=== PATIENT | female | born 1935 | race Caucasian/White ===

== ENCOUNTER 2017-04-06 13:50 | Inpatient (IN) | payer MEDICARE, BC ==
[~2017-04-06] VITALS: Ht 157.5 cm; Wt 51.5 kg
[2017-04-06] MEDS ORDERED: SOD CHLORIDE 0.9% 1,000 ML IV STA ×2 (14:04→14:06)
[2017-04-06] MEDS ORDERED: ONDANSETRON 4 MG INJ IV STA (14:11)
[2017-04-06] MEDS ORDERED: ONDANSETRON 4 MG INJ ONE (14:12)
[2017-04-06 14:35] LABS: BASOPHILS % 0.4 % (0.0-2.0); EOSINOPHILS # 0.2 10^3/ul (0.0-0.5); EOSINOPHILS % 3.1 % (0.0-7.0); HEMATOCRIT 44.4 % (37.0-47.0); LYMPHOCYTES # 2.6 10^3/ul (0.8-2.9); LYMPHOCYTES % 53.2 % (15.0-51.0); MEAN CORPUSCULAR HEMOGLOBIN 31.3 pg (29.0-33.0); MEAN CORPUSCULAR HGB CONC 31.5 g/dl (32.0-37.0); MEAN CORPUSCULAR VOLUME 99.1 fl (82.0-101.0); MEAN PLATELET VOLUME 9.4 fl (7.4-10.4); MONOCYTE # 0.3 10^3/ul (0.3-0.9); MONOCYTES % 6.2 % (0.0-11.0); NEUTROPHIL # 1.8 10^3/ul (1.6-7.5); NEUTROPHILS % 36.9 % (39.0-77.0); PLATELET COUNT 329 10^3/UL (140-415); RED BLOOD COUNT 4.48 10^6/ul (4.20-5.40); RED CELL DISTRIBUTION WIDTH 14.3 % (11.5-14.5); WHITE BLOOD COUNT 4.8 10^3/ul (4.8-10.8)
--- NOTE | 2017-04-06 14:49 | RADRPT ---
PROCEDURE: Chest x-ray CLINICAL INDICATION: Chest pain TECHNIQUE: Chest single view COMPARISON: None FINDINGS: There is mild cardiomegaly and moderate atherosclerotic aortic calcification. Tortuosity ectasia is noted of the thoracic aorta. Pulmonary vessels normal in caliber. Lungs are clear. There are old rig ht-sided rib fractures. Post kyphoplasty changes are noted in the mid thoracic spine. This loss of h eight of the lower thoracic vertebral bodies. Bones are osteopenic. IMPRESSION: No acute cardiopulmonary disease. Mild cardiomegaly and an sclerotic aortic calcification Other findings as detailed RPTAT: HH .Ulisses Salas MD, MD Date Time Electronically viewed and signed by .Ulisses Salas MD, on 04/06/2017 14:49 .W/
[2017-04-06] MEDS ORDERED: FURO-110 PO (14:53)
[2017-04-06] MEDS ORDERED: LEVO100T87 PO (14:53)
[2017-04-06] MEDS ORDERED: LISI-313 PO (14:53)
[2017-04-06 14:54] LABS: ALANINE AMINOTRANSFERASE 26 IU/L (13-69); ALBUMIN 4.3 g/dl (3.3-4.9); ALBUMIN/GLOBULIN RATIO 1.19; ALKALINE PHOSPHATASE 111 IU/L (42-121); ANION GAP 19 (8-16); ASPARTATE AMINO TRANSFERASE 35 IU/L (15-46); BILIRUBIN,INDIRECT 0.2 mg/dl (0-1.1); BILIRUBIN,TOTAL 0.2 mg/dl (0.2-1.3); BLOOD UREA NITROGEN 14 mg/dl (7-20); CALCIUM 9.8 mg/dl (8.4-10.2); CARBON DIOXIDE 23 mmol/L (21-31); CHLORIDE 103 mmol/L (97-110); CREATININE 1.14 mg/dl (0.44-1.00); GLUCOSE 187 mg/dl (70-220); POTASSIUM 4.1 mmol/L (3.5-5.1); SODIUM 141 mmol/L (135-144); TOTAL PROTEIN 7.9 g/dl (6.1-8.1)
--- NOTE | 2017-04-06 14:57 | RADRPT ---
PROCEDURE: CT Head without contrast. CLINICAL INDICATION: Syncope TECHNIQUE: The study was performed utilizing a GE 64-slice multidetector CT scanner. Direct spiral axial CT images of the brain were obtained from the vertex to the skull base without contrast. Aidan nal and sagittal reformatted images are provided. The CTDI vol is 45.01 mGy and the DLP is 720.23 mG y-cm. The images were reviewed on a PACS workstation. One or more of the following dose reduction techniques were used: Automated exposure control. Adjustment of the mA and/or kV according to patient size. Use of iterative reconstruction technique. COMPARISON: No prior studies are available for comparison. FINDINGS: Mild to moderate diffuse atrophy is seen with a compensatory ventricular enlargement. Mild to moder ate white matter disease in the periventricular and deep white matter is seen. The anderson-white matte r differentiation is maintained. No intra or extra-axial fluid collection or mass effect or shift i n the midline structures is seen. The visualized paranasal sinuses, mastoid air cells, orbits, and calvarium are unremarkable. Vascular calcifications are seen. IMPRESSION: 1. No acute intracranial pathology. 2. Mild to moderate diffuse volume loss and mild to moderate chronic microvascular ischemic changes . RPTAT: HPNM Physician Nani Date Time Electronically viewed and signed by Physician Nani on 04/06/2017 14:57 /
[2017-04-06 15:09] LABS: TROPONIN-I < 0.012 ng/ml (0.00-0.12)
[2017-04-06 15:20] LABS: INR 0.93; PARTIAL THROMBOPLASTIN TIME 21.3 Sec (25.0-35.0); PROTIME 12.5 Sec (12.2-14.2)
[2017-04-06] MEDS ORDERED: ONDANSETRON 4 MG INJ IV PRN ×2 (15:30→16:30)
[2017-04-06] MEDS ORDERED: ACETAMINOPHEN 325 MG TAB PO PRN ×2 (15:30→16:30)
[2017-04-06] MEDS ORDERED: NACL 0.9% 3 ML SYG IV SCH (16:30)
[2017-04-06] MEDS ORDERED: HYDROCODONE/APAP (5/325) TAB PO PRN (16:30)
--- NOTE | 2017-04-06 16:48 | HP ---
Date/Time of Note Date/Time of Note DATE: 04/06/17 TIME: 16:41 Assessment/Plan VTE Prophylaxis VTE Prophylaxis Intervention: SCD's Assessment/Plan Chief Complaint/Hosp Course 1. Near syncope. Most probably from underlying vasovagal response since the patient had multiple episodes of diarrhea. The patient was also noticeably hypotensive. The patient was adequately resuscitated with IV fluids. Further IV fluid resuscitation will be with caution since the patient reported a history of cardiomyopathy. The patient will also be evaluated for other causes including any stroke, cardiac arrhythmias, and infectious etiology. Her brain CT scan was negative for any acute intracranial findings. Will order a brain MRI. Will also order a carotid Doppler study as well as a 2D echocardiogram. 2. Paroxysmal atrial tachycardia and frequent PVCs. The patient will be evaluated by cardiology. The patient will be ruled out for any underlying acute coronary syndrome. The patient will be maintained on as needed Cardizem for a sustained ventricular/supraventricular tachycardia. The patient is allergic to beta-blockers. Hence no beta-blockers will be used at this time. 3. Diarrhea. Etiology unclear. The patient will be ruled out for infectious causes. CT abdomen and pelvis pending at this time. 4. Essential hypertension. The patient is currently hypotensive. The patient' s home antihypertensives will be resumed if the patient's blood pressure remains stable. 5. Hypothyroidism. The patient's Synthroid will be resumed. 6. Chronic dermatitis. The patient follows up with outpatient dermatology for the same. Plan: The patient will be admitted to inpatient telemetry floor. The patient will be started on a low cholesterol diet. The patient will be started on DVT prophylaxis. The patient will remain a full code. Activities will be with assist. The rest of the patient's management will be based on the clinical course, inputs from consultants, and the results of diagnostic studies. Based on the patient's clinical presentation, she most probably requires at least 2 midnights' stay for further management and evaluation of her clinical presentation. The case and management of this patient was fully discussed with Dr. Carbone. Problems: HPI/ROS Admit Date/Time Admit Date/Time Hx of Present Illness Reason for admission: Near syncope at an outside restaurant. Consultants 1. Swapnil Phillips MD, Cardiology. This is an 82-year-old female with past medical history of essential hypertension, hypothyroidism, and reported cardiomyopathy who was reportedly in an outside restaurant eating her meals. Soon after eating the meals she felt like she wanted to go to the restroom for having a bowel movement. As per the patient she continued to have loose stools that was not stopping. She felt dizzy. The patient was also complaining of feeling cold. She was complaining of crampy abdominal pain. Patient denied any chest pain, headache, dyspnea, or dysuria. Finally she was able to finish having a bowel movement but was unable to open the door of the restroom. Eventually, she managed to come out of the restroom and called for help. The patient was brought to a chair in the restaurant. Paramedics were called. In the ambulance, patient had multiple episodes of nonbilious vomiting. The was hypotensive enroute. Upon arrival to the ER, the patient was noticed to be hypotensive. Patient Was given 2 L of IV fluid bolus with improvement in the patient's blood pressure. The patient was noticed to have paroxysmal episodes of supraventricular tachycardia in the emergency room. The patient's 12-lead EKG that was done in the emergency room showed accelerated junctional rhythm with premature supraventricular complexes, left axis deviation, and incomplete left bundle branch block. The patient's initial set of troponins were negative. ROS Constitutional: chills, nausea Eyes: no complaints ENT: no complaints Respiratory: no complaints Cardiovascular: orthopenea Gastrointestinal: diarrhea Genitourinary: no complaints Musculoskeletal: no complaints Skin: skin lesions Neurologic: dizziness Endocrine: no complaints Lymphatic: no complaints Psychological: no complaints Immunologic: urticaria PMH/Family/Social Past Medical History Medical History: hypertension, hypothyroid, other (reported cardiomyopathy, dermatitis) Past Surgical History Past Surgical Hx: other (Right hip replacement, back surgery) Social History Alcohol Use: none Smoking Status: Never smoker Drug Use: none Exam/Review of Systems Vital Signs Vitals Vital Signs Date Time Temp Pulse Resp B/P Pulse Ox O2 Delivery O2 Flow Rate FiO2 04/06/17 16:21 97 16 103/58 100 Nasal Cannula 04/06/17 15:08 2.0 04/06/17 14:28 97.4 Exam Exam General: Thin, frail looking 82 year-old female lying in bed in no apparent distress. HEENT: Normocephalic, atraumatic. Eyes: Anicteric sclerae, conjunctivae clear. ENT: Nasal septum midline, oral mucosa moist. Neck supple, no JVD noticed. Respiratory: Bilaterally diminished breath sounds. No use of accessory muscles of respiration. No adventitious breath sounds. Cardiovascular: S1, S2 heard. Irregularly irregular rhythm. Abdomen: Soft, nontender, and nondistended. Bowel sounds positive in all 4 quadrants. Genitourinary: Deferred. Extremities: No cyanosis no edema. Peripheral pulses palpable. Neurologic: Cranial nerves II through XII grossly intact. The patient is awake, alert, and oriented. Skin: Mottled skin of B/L LE. Labs Result Diagram: 04/06/17 1409 04/06/17 1409 Procedures Procedures CXR IMPRESSION: No acute cardiopulmonary disease. Mild cardiomegaly and an sclerotic aortic calcification Brain CT IMPRESSION: 1. No acute intracranial pathology. 2. Mild to moderate diffuse volume loss and mild to moderate chronic microvascular ischemic changes. 12-Lead EKG Accelerated junctional rhythm with premature supraventricular complexes. Incomplete left bundle branch block. ARAM PAZ NP Apr 06, 2017 16:48 ARAM PAZ NP Apr 06, 2017 16:48
[2017-04-06] MEDS ORDERED: DILTIAZEM 25 MG INJ IV PRN (17:00)
--- NOTE | 2017-04-06 17:46 | RADRPT ---
PROCEDURE: US Carotids. CLINICAL INDICATION: Syncope TECHNIQUE: Multiple sonographic of the carotid bifurcation region and vertebral arteries were obta ined utilizing anderson scale, duplex and color-flow imaging. The images were reviewed on a PACS worksta tion. COMPARISON: None FINDINGS: Evaluation of the right carotid bifurcation region reveals no significant calcific atherosclerotic d isease. Evaluation of the left carotid bifurcation region reveals no significant calcific atherosclerotic di sease. There is antegrade flow within the vertebral arteries bilaterally. RIGHT CAROTID MEASUREMENTS: Common Carotid Bfvjjx90 (cm/sec) Internal Carotid Artery - bjiijjil79 (cm/sec) Internal Carotid Artery - mid77 (cm/sec) Internal Carotid Artery - distal 71 (cm/sec) Internal Carotid/Common Carotid1.0 LEFT CAROTID MEASUREMENTS: Common Carotid Artery 85 (cm/sec) Internal Carotid Artery - proximal 78 (cm/sec) Internal Carotid Artery - mid 74 (cm/sec) Internal Carotid Artery - distal 81 (cm/sec) Internal Carotid/Common Carotid 1.0 IMPRESSION: 1. No evidence of a significant stenosis of the right internal carotid artery. 2. No evidence of a significant stenosis of the left internal carotid artery. 3. Normal antegrade flow in the vertebral arteries bilaterally. Measurement of carotid stenosis is based on peak systolic and diastolic velocity parameters that cor relate to the residual internal carotid diameter with [place] Symptomatic Carotid Endarterect karie Trial (NASCET) based stenosis levels. Normal ( < 50% )- ICA peak systolic velocity < 125 cm/sec, ICA / CCA ratio < 2.0 Moderate stenosis ( 50 - 69% )- ICA peak systolic velocity 125 - 230 cm/sec, ICA / CCA ratio 2.0 - 4.0 Severe stenosis ( >70% )- ICA peak systolic velocity > 230 cm/sec, ICA / CCA ratio > 4.0 RPTAT:AAJJ Physician Jenn Date Time Electronically viewed and signed by Physician Jenn on 04/06/2017 17:45 /
--- NOTE | 2017-04-06 18:47 | ERA ---
ER Documentation Chief Complaint Date/Time DATE: 04/06/17 TIME: 18:43 Chief Complaint Syncope HPI Patient is an 82-year-old female with cardiac myopathy, atrial fibrillation, and hypertension who presents with syncope. The patient was brought in by ambulance. She passed out at [employer]. She had just gone to the bathroom. However she was pale and hypotensive. She has a history of cardiomyopathy. Her blood pressure was 50/20 laying down per paramedics. The patient has had an MRI of her heart done at [facility] on Monday and was told that the EF was between 25-52%. ROS All systems reviewed and are negative except as per history of present illness. Medications Home Meds Reported Medications Furosemide* (Lasix*) 20 Mg Tablet, 20 MG PO DAILY, TAB 04/06/17 Levothyroxine Sodium* (Levothyroxine Sodium*) 100 Mcg Tablet, 100 MCG PO BEFORE BREAKFAST, #30 TAB 04/06/17 Lisinopril* (Lisinopril*) 5 Mg Tablet, 5 MG PO DAILY, #30 TAB 04/06/17 Allergies Allergies: Coded Allergies: No Known Allergy (Unverified , 04/06/17) PMhx/Soc History of Surgery: No Anesthesia Reaction: No Hx Neurological Disorder: No Hx Respiratory Disorders: No Hx Cardiac Disorders: Yes (Cardiomyopathy, HTN) Hx Psychiatric Problems: No Hx Miscellaneous Medical Probl: No Hx Alcohol Use: No Hx Substance Use: No Hx Tobacco Use: No Smoking Status: Never smoker FmHx Family History: No diabetes Physical Exam Vitals Vital Signs Date Time Temp Pulse Resp B/P Pulse Ox O2 Delivery O2 Flow Rate FiO2 04/06/17 17:33 112 17 112/57 Nasal Cannula 2.0 04/06/17 16:21 97 16 103/58 100 Nasal Cannula 04/06/17 15:08 94 27 103/46 100 Nasal Cannula 2.0 04/06/17 14:31 95 28 89/49 99 Nasal Cannula 2.0 04/06/17 14:28 97.4 106 30 91/44 94 04/06/17 14:10 Nasal Cannula 2 Physical Exam Const: Moderate distress Head: Atraumatic Eyes: Normal Conjunctiva ENT: Normal External Ears, Nose and Mouth. Neck: Full range of motion..~ No meningismus. Resp: Clear to auscultation bilaterally Cardio: Regular rate and rhythm, no murmurs Abd: Soft, non tender, non distended. Normal bowel sounds Skin: Pale skin Back: No midline or flank tenderness Ext: No cyanosis, or edema Neur: Awake but confused Result Diagram: 04/06/17 1409 04/06/17 1409 Results 24 hrs Laboratory Tests Test 04/06/17 14:00 04/06/17 14:09 04/06/17 15:50 Prothrombin Time 12.5Sec Prothrombin Time Ratio 1.0 INR International Normalized Ratio 0.93 Activated Partial Thromboplast Time 21.3Sec Hemoglobin A1c 6.1% White Blood Count 4.810^3/ul Red Blood Count 4.4810^6/ul Hemoglobin 14.0g/dl Hematocrit 44.4% Mean Corpuscular Volume 99.1fl Mean Corpuscular Hemoglobin 31.3pg Mean Corpuscular Hemoglobin Concent 31.5g/dl Red Cell Distribution Width 14.3% Platelet Count 97374^3/UL Mean Platelet Volume 9.4fl Neutrophils % 36.9% Lymphocytes % 53.2% Monocytes % 6.2% Eosinophils % 3.1% Basophils % 0.4% Nucleated Red Blood Cells % 0.0/100WBC Neutrophils # 1.810^3/ul Lymphocytes # 2.610^3/ul Monocytes # 0.310^3/ul Eosinophils # 0.210^3/ul Basophils # 0.010^3/ul Nucleated Red Blood Cells # 0.010^3/ul Sodium Level 141mmol/L Potassium Level 4.1mmol/L Chloride Level 103mmol/L Carbon Dioxide Level 23mmol/L Anion Gap 19 Blood Urea Nitrogen 14mg/dl Creatinine 1.14mg/dl Glucose Level 187mg/dl Calcium Level 9.8mg/dl Total Bilirubin 0.2mg/dl Direct Bilirubin 0.00mg/dl Indirect Bilirubin 0.2mg/dl Aspartate Amino Transf (AST/SGOT) 35IU/L Alanine Aminotransferase (ALT/SGPT) 26IU/L Alkaline Phosphatase 111IU/L Troponin I < 0.012ng/ml Total Protein 7.9g/dl Albumin 4.3g/dl Globulin 3.60g/dl Albumin/Globulin Ratio 1.19 Thyroid Stimulating Hormone (TSH) 1.900MIU/L Free Thyroxine 1.57ng/dl Lactic Acid Level 2.5mmol/L Current Medications Medications (Trade) Dose Ordered Sig/Jose Route PRN Reason Start Time Stop Time Status Last Admin Dose Admin Sodium Chloride 1,000 ml @ 1,000 mls/hr Q1H STAT IV 04/06/17 14:04 04/06/17 15:03 DC 04/06/17 14:15 Sodium Chloride (NS) 1,000 ml @ 1,000 mls/hr Q1H STAT IV 04/06/17 14:06 04/06/17 15:05 DC 04/06/17 14:06 Ondansetron HCl (Zofran Inj) 4 mg ONCE STAT IV 04/06/17 14:11 04/06/17 14:12 DC 04/06/17 14:15 Ondansetron HCl (Zofran Inj) 4 mg STK-MED ONCE .ROUTE 04/06/17 14:12 04/06/17 14:13 DC Ondansetron HCl (Zofran Inj) 4 mg ER BRIDGE PRN IV NAUSEA AND/OR VOMITING 04/06/17 15:30 04/07/17 15:29 Acetaminophen (Tylenol Tab) 650 mg ER BRIDGE PRN PO MILD PAIN/FEVER 04/06/17 15:30 04/07/17 15:29 IV Flush (NS 3 ml) 3 ml PER PROTOCOL IV 04/06/17 16:30 UNV Ondansetron HCl (Zofran Inj) 4 mg Q6H PRN IV NAUSEA AND/OR VOMITING 04/06/17 16:30 UNV Acetaminophen (Tylenol Tab) 650 mg Q6H PRN PO PAIN LEVEL 1-3 OR FEVER 04/06/17 16:30 UNV Acetaminophen/ Hydrocodone Bitart (Rowe (5/325)) 1 tab Q6H PRN PO PAIN LEVEL 4-6 04/06/17 16:30 UNV Furosemide (Lasix) 20 mg DAILY PO 04/07/17 09:00 UNV Levothyroxine Sodium (Synthroid) 100 mcg BEFORE BREAKFAST PO 04/07/17 07:00 UNV Lisinopril (Zestril) 5 mg DAILY PO 04/07/17 09:00 UNV Diltiazem HCl (Cardizem Iv) 10 mg Q2H PRN IV HR>160 04/06/17 17:00 UNV Procedures/MDM CT brain shows no intracranial hemorrhage per radiology. CT abdomen and pelvis is pending at this time. EKG read by me: Rate/Rhythm: Sinus tachycardia with left bundle branch block a rate of 106 Intervals: Normal Impression: Sinus tachycardia with left bundle branch block Patient is an 82-year-old female with cardiomegaly who presents with syncope. She has had significant diarrhea in the emergency department and I do believe there is hypotension from dehydration. The patient was given 2 L of normal saline for fluid resuscitation. The patient has an EKG which shows sinus tachycardia with left bundle branch block. There also is a potential for ventricular fibrillation or ventricular tachycardia given the patient's cardiomyopathy. The patient will be admitted to the panel team to a telemetry bed. Initial troponin is negative. There is no sign of serious bacterial infection or sepsis at this time. The patient's lactic acid is slightly elevated but I believe this is likely from hypotension due to dehydration and not sepsis. Departure Diagnosis: Primary Impression: Syncope Qualified Code: R55 - Syncope, unspecified syncope type Additional Impressions: Diarrhea Qualified Code: R19.7 - Diarrhea, unspecified type Hypotension Qualified Code: I95.9 - Hypotension, unspecified hypotension type Dehydration Condition: TOMMY Du MD Apr 06, 2017 18:47
--- NOTE | 2017-04-06 19:01 | RADRPT ---
PROCEDURE: CT abdomen and pelvis without IV contrast. CLINICAL INDICATION: Abdominal pain TECHNIQUE: CT scan of the abdomen and pelvis without contrast was performed on the [employer] volumetric [address] scanner. The patient was scanned without intravenous contrast. Coronal and sagittal refo rmatted images were obtained from the axial source images. The CTDI vol is 7.91 mGy and the DLP is 3 89.3 mGy-cm. One or more of the following dose reduction techniques were used: Automated exposure control. Adjustment of the mA and/or kV according to patient size. Use of iterative reconstruction technique. COMPARISON: None. FINDINGS: CT abdomen: A trace left pleural effusion is suggested with bibasilar air space disease. The heart size is not enlarged and is without pericardial thickening or effusion. The liver is normal in size and density and is without focal mass or intrahepatic biliary dilatation . The spleen is normal in size and homogeneous in density. The stomach is grossly unremarkable. T he pancreas as visualized is normal. The gallbladder and biliary tree are unremarkable and there is no evidence for common bile duct dilatation. The adrenal glands are symmetric and normal. The kid neys are symmetrically unremarkable as well. A left renal cyst is seen measuring 2.2 cm in size. No renal calculus or obstructive uropathy or mass lesion is seen. The aorta is of normal in caliber. Aortic calcifications are seen. There is no retroperitoneal lymph adenopathy. The lacy hepatis region is clear. The large bowel is diffusely fluid-filled with judy l wall thickening which is most prominent in the left hemicolon with surrounding stranding in the ad jacent mesentery. Sigmoid diverticulosis is seen. The small and large bowel and mesentery, as visual ized, are otherwise unremarkable. No inflammatory changes in the periappendiceal region is seen. CT pelvis: The pelvic organs are normal. The pelvic sidewalls and inguinal regions are clear. No pelvic mass, lymphadenopathy, or free fluid is seen. No acute inflammation is seen. The urinary bladder is wit hin normal limits. Degenerative spondylosis of the lumbar spine is seen. Diffuse osteopenia is seen. A compression frac ture of the L1 vertebral body is seen which demonstrates approximately 25-35% height loss. Vertebrop lasty material in the L1 vertebral body is seen. A mild levoscoliosis is seen. No osteolytic or ost eoblastic lesion is detected. Orthopedic pin placement in the right hip is seen. IMPRESSION: 1. Findings consistent with colitis as described above which may be infectious or inflammatory in n ature. Infectious etiologies include C difficile colitis. Correlation with laboratory markers may be of value as clinically warranted. 2. Trace left pleural effusion with bibasilar air space disease which may represent atelectasis clement romain infiltrates. Continued chest x-ray follow-up is suggested. 3. Sigmoid diverticulosis. RPTAT: HPNM Physician Nani Date Time Electronically viewed and signed by Juan Thurman Physician on 04/06/2017 19:00 /
[2017-04-06 19:10] LABS: CREATINE KINASE 92 IU/L (23-200)
[2017-04-06 19:24] LABS: CK-MB 3.14 ng/ml (0.0-2.4)
[2017-04-06 19:27] LABS: TROPONIN-I < 0.012 ng/ml (0.00-0.12)
[2017-04-06] MEDS ORDERED: metroNIDAZOLE 500 MG/NS (PMX) 100 ML IVPB ONE (19:30)
[2017-04-06] MEDS ORDERED: CEFTRIAXONE 1 GM/50 ML (PMX) 50 ML IVPB ONE (19:30)
[2017-04-06 19:43] VITALS: TEMP 98.1
[2017-04-06 20:41] VITALS: PULSE 96
[2017-04-06 20:52] LABS: CK-MB 5.26 ng/ml (0.0-2.4); TROPONIN-I 0.022 ng/ml (0.00-0.12)
[2017-04-06 21:00] VITALS: BP 121/57; RESP 18
[2017-04-06 21:30] VITALS: Ht 157.5 cm; Wt 51.5 kg
[2017-04-06 23:28] VITALS: BP 138/62; RESP 16
[2017-04-06 23:35] LABS: CK-MB 6.74 ng/ml (0.0-2.4); TROPONIN-I 0.036 ng/ml (0.00-0.12)
[2017-04-07] VITALS (11 sets, daily range): BP systolic 78–144; BP diastolic 50–65; PULSE 84–120; RESP 16–19
[2017-04-07] MEDS ORDERED: LEVALBUTEROL (NEB) 0.63 MG/3 ML AMP HHN ONE
--- NOTE | 2017-04-07 00:49 | EN ---
Date/Time of Note Date/Time of Note DATE: 04/07/17 TIME: 00:37 Event Note Medicine Medicine Event Note Was called to the bedside by the nurse as patient oxygenation was desaturating. Patient was noted to be earlier and 90% on 2 L of oxygen, she decided down to 89% requiring 4 L of oxygen. Patient denied any chest pain. She denies any overt shortness of breath. Denies any cough. She has been feeling weak however the symptoms unchanged from when she arrived to the hospital. Vitals: Temperature 98.5, heart rate 92, respirations 16, 90% on 4 L O2, blood pressure 138/62 General: Patient is a pleasant female lying in bed in no acute distress HEENT: Atraumatic, normocephalic. The pupils are equal, round and reactive. Extraocular motor are intact Neck: Supple with full range of motion. No rigidity or meningismus Chest: Nontender Lungs: Mild crackles at the left lower lung base, good aeration bilaterally otherwise, no wheezing Heart: Normal S1-S2, Regular rhythm and rate. Abdomen: Soft , nontender, nondistended , bowel sounds are present. No guarding no rebound tenderness , Extremities: Normal to inspection, no edema no cyanosis Neurologic: Normal mental status, speech normal, cranial nerves II through XII are intact, motor and sensory are intact, no focal weakness Genitourinary: Rectal tube in place Chest x-ray: Does not appear to show any vascular congestion. There does appear to be a small left-sided pleural effusion. Will await the official read. Assessment and plan: #1 hypoxia: Patient currently right now is requiring 4 L of oxygen to maintain a sat of 90%. I do not hear any wheezing on examination and there does not appear to be any lower extremity edema to suggest any sort of acute volume overload. At the current time will provide the patient with a Xopenex breathing treatment. I will also recommend incentive spirometry. I am hesitant to give any Lasix at this time as I do not see any clinical evidence of vascular congestion on the x-ray and no wheezing on clinical exam. I am ordering a d-dimer though. If it does come back elevated than likely will send her to have a CTA of the chest to rule out PE. #2 Elevated CK: Creatinine kinase has been gradually rising during her stay, however her troponins did not reflect any sort of acute cardiac cause at this time. There may be some possible rhabdomyolysis as she does report that she has had some pain in her right shoulder. On exam she is able to move her right shoulder freely without any restrictions. At the current time I will order a UA and a urine microalbumin as well. I also will consider providing some gentle hydration to the patient as well while keeping in mind her cardiac history. Further treatment strategy will be implemented as per the clinical course Greater than 35 minutes of critical time was spent on the care and management of this patient. PINKY JOYCE Apr 07, 2017 00:48
[2017-04-07 00:51] LABS: ALBUMIN 2.8 g/dl (3.3-4.9); ALBUMIN/GLOBULIN RATIO 0.9; CALCIUM 7.7 mg/dl (8.4-10.2); CREATININE 1.21 mg/dl (0.44-1.00); POTASSIUM 4.4 mmol/L (3.5-5.1); TOTAL PROTEIN 5.9 g/dl (6.1-8.1)
--- NOTE | 2017-04-07 00:53 | RADRPT ---
PROCEDURE: XR Chest. CLINICAL INDICATION: Low oxygen saturation. TECHNIQUE: Single AP portable chest. COMPARISON: 04/06/2017 Chest x-ray FINDINGS: Mild cardiomegaly. Tortuosity of the thoracic aorta Atherosclerotic calcification of the aorta. Coa rse interstitial fibrotic changes bilaterally all pleural effusion. Mild prominence of the pulmonary vascularity kyphoplasty of the mid thoracic and lower thoracic spine. No pneumothorax. The osseous structures and soft tissues are unremarkable. IMPRESSION: 1. Mild cardiomegaly and vascular congestion with small pleural effusions suggestive of mild failure . No other interval change. RPTAT:AAJJ Physician Sandeep Date Time Electronically viewed and signed by Physician Sandeep on 04/07/2017 00:53 PHILL/
[2017-04-07] MEDS ORDERED: SOD CHLORIDE 0.9% 100 ML ONE (04:14)
[2017-04-07] MEDS ORDERED: IOHEXOL 300MG/ML 150 ML BTL ONE (04:14)
--- NOTE | 2017-04-07 06:29 | RADRPT ---
PROCEDURE: CTA Chest CLINICAL INDICATION: Shortness of breath and elevated D-dimer. Suspected pulmonary embolus. TECHNIQUE: Thin section spiral CT images were obtained through the vasculature of the chest during administration of 100 cc of Omnipaque-300 contrast material. Multiplanar reconstructions and 3-D m aximum intensity projection reconstructed images were performed. The images were reviewed on a PACS workstation. The total exam CTDI equals 9.96 mGy, and the total exam DLP equals 394.76 mGy-cm. O ne or more of the following dose reduction techniques were used: automated exposure control, adjustm ent of the mA and/or kV according to patient size, or use of iterative reconstruction technique. COMPARISON: Chest x-ray from yesterday FINDINGS: Slightly nodular pleural thickening is seen at the lung apices. Tiny left greater right pleural effu sions are seen. Dependent atelectasis at the lung bases. Mild cardiomegaly. Atherosclerotic calcific ation of the aorta and coronary arteries. No hilar or mediastinal adenopathy is seen. There is no definite evidence for pulmonary embolus or aortic dissection. Diffuse colonic wall thickening is s een, described on earlier CT of the abdomen pelvis. Probable left renal cyst is again seen. There do es appear to be some free fluid adjacent to the inflamed splenic flexure. There is marked thoracic k yphosis. Cement is seen from prior T9 and L1 vertebroplasty. Severe T8 compression fracture is seen fairly severe T10 compression fracture is seen. Degenerative changes seen throughout the spine. IMPRESSION: No definite evidence for pulmonary embolus or aortic dissection. Slightly nodular biapical pleural t hickening and small bilateral pleural effusions with bibasilar atelectasis. Redemonstration of colitis. Thoracic kyphosis with compression fractures and prior lumbar and thoracic vertebroplasty as describ ed. RPTAT: HLBE Physician Leela Date Time Electronically viewed and signed by Physician Leela on 04/07/2017 06:28 LE/
[2017-04-07 06:43] LABS: BASOPHILS % 0.2 % (0.0-2.0); HEMATOCRIT 30.4 % (37.0-47.0); HEMOGLOBIN 9.7 g/dl (12.0-16.0); LYMPHOCYTES # 0.8 10^3/ul (0.8-2.9); LYMPHOCYTES % 6.9 % (15.0-51.0); MEAN CORPUSCULAR HEMOGLOBIN 30.5 pg (29.0-33.0); MEAN CORPUSCULAR HGB CONC 31.9 g/dl (32.0-37.0); MEAN CORPUSCULAR VOLUME 95.6 fl (82.0-101.0); MEAN PLATELET VOLUME 9.4 fl (7.4-10.4); MONOCYTE # 0.8 10^3/ul (0.3-0.9); MONOCYTES % 6.9 % (0.0-11.0); NEUTROPHIL # 9.6 10^3/ul (1.6-7.5); NEUTROPHILS % 85.6 % (39.0-77.0); PLATELET COUNT 195 10^3/UL (140-415); RED BLOOD COUNT 3.18 10^6/ul (4.20-5.40); RED CELL DISTRIBUTION WIDTH 14.5 % (11.5-14.5); WHITE BLOOD COUNT 11.2 10^3/ul (4.8-10.8)
[2017-04-07 07:12] LABS: CHOL/HDL RATIO 1.5 RATIO; MAGNESIUM 1.6 mg/dl (1.7-2.5); PHOSPHORUS 3.6 mg/dl (2.5-4.9)
[2017-04-07 07:14] LABS: ALBUMIN 2.6 g/dl (3.3-4.9); ALBUMIN/GLOBULIN RATIO 0.89; BILIRUBIN,INDIRECT 0.1 mg/dl (0-1.1); BILIRUBIN,TOTAL 0.1 mg/dl (0.2-1.3); CALCIUM 7.4 mg/dl (8.4-10.2); CK-MB 4.82 ng/ml (0.0-2.4); CREATININE 1.18 mg/dl (0.44-1.00); TOTAL PROTEIN 5.5 g/dl (6.1-8.1); TROPONIN-I 0.038 ng/ml (0.00-0.12)
[2017-04-07 07:17] LABS: POSITIVE DIFF @See below
[2017-04-07] MEDS: LEVOTHYROXINE 100 MCG TAB PO SCH (08:52)
[2017-04-07] MEDS: CEFTRIAXONE 1 GM/50 ML (PMX) 50 ML IVPB SCH (08:53)
[2017-04-07] MEDS ORDERED: LISINOPRIL 5 MG TAB PO SCH (09:00)
[2017-04-07] MEDS ORDERED: FUROSEMIDE 20 MG TAB PO SCH (09:00)
[2017-04-07] MEDS ORDERED: MAGNESIUM SULFATE 2 GM/50 ML 50 ML IVPB ONE (09:00)
--- NOTE | 2017-04-07 14:05 | RADRPT ---
Echocardiogram Report Patient Name: DEVAUGHN WHITESIDE Gender: Female Date: 1935 Study Date: 07-Apr-2017 [employer] Worker: Nelson Honeycutt [facility] Location: [id number] Ref. Physician: ARAM PAZ Quality: Adequate Procedures: Transthoracic echocardiogram with complete 2D, M-Mode, and doppler examination. Indications: Syncope. 2D/M Mode Doppler Measurement Value Normal Ranges Measurement Value Normal Ranges LVIDd 2D 3.9 3.5 - 5.6 cm AV Peak Trace 1.5 m/sec LVIDs 2D 2.2 2.1 - 4.1 cm AV Peak PG 9.5 mmHg LVPWd 2D 1.1 0.6 - 1.1 cm AI Peak PG 39.0 mmHg IVSd 2D 1.0 0.6 - 1.1 cm AI Peak Trace 3.1 m/sec AoR Diam 2D 3.1 2.0 - 3.7 cm AI PHT 510.7 msec EDV 2D 65.9 cm3 MV E Peak Trace 0.7 m/sec ESV 2D 11.2 cm3 MV A Peak Trace 1.1 m/sec LA Dimen 2D 3.7 2.3 - 4.0 cm MV E/A 0.7 MV Decel Time 279 msec MV Decel Dickenson 2 MV E/A 0.7 TR Peak Trace 2.9 m/sec TR Peak PG 32.9 mmHg RVSP 41.0 mmHg Findings Left Ventricle: Normal left ventricular cavity size. Normal left ventricular wall thickness. Mild left ventricular systolic dysfunction. Ejection fraction is visually estimated at 45 %. Right Ventricle: Normal right ventricular size. Normal right ventricular systolic function. Left Atrium: There is mild enlargement of left atrium. Right Atrium: The right atrium is normal in size. Mitral Valve: Mitral valve leaflets appear mildly thickened. Mild mitral annular calcification. Mild mitral valve regurgitation. Aortic Valve: No hemodynamically significant aortic stenosis by doppler. Aortic cusps appear mildly calcified. Mild aortic valve regurgitation. Tricuspid Valve: Normal appearance of the tricuspid valve. Estimated peak PA systolic pressure 33 mmHg. There is mild tricuspid regurgitation. Pulmonic Valve: Normal pulmonic valve appearance. Pericardium: Normal pericardium with no significant pericardial effusion. Aorta: Normal aortic root. IVC: The IVC is not well visualized. Conclusions Normal left ventricular cavity size. Normal left ventricular wall thickness. Mild left ventricular systolic dysfunction. Ejection fraction is visually estimated at 45 %. Mild aortic valve regurgitation. Estimated peak PA systolic pressure 33 mmHg. There is mild tricuspid regurgitation. The IVC is not well visualized. Electronically Signed By: Swapnil Phillips 07-Apr-2017 14:05:22 -0700 Patient Name: DEVAUGHN WHITESIDE Study Date: 07-Apr-2017 [id number]
--- NOTE | 2017-04-07 14:30 | RADRPT ---
PROCEDURE: Renal US. CLINICAL INDICATION: Renal dysfunction. TECHNIQUE: Multiple sonographic images of the kidneys and urinary bladder were obtained. The imag es were reviewed on a PACS workstation. COMPARISON: No prior studies are available for comparison. FINDINGS: The right kidney measures 8.4 cm. The left kidney measures 9.1 cm. There is no solid renal mass. There is a benign cyst in the left renal sinus measuring 2.3 x 2.2 cm. There is no hydronephrosis. There is no renal calculus. Renal parenchymal thickness is normal bilaterally. Both kidneys are hyperechoic consistent with medical renal disease. The perirenal regions are normal with no fluid collection or mass. There is a Torres catheter in the urinary bladder. IMPRESSION: 1. Benign left renal cyst measuring 2.3 cm. 2. Bilateral hyperechoic kidneys consistent with medical renal disease. 3. Torres catheter in the bladder. 4. Otherwise unremarkable study. RPTAT: QQ .Vidal Martinez MD, Date Time Electronically viewed and signed by .Vidal Martinez MD, MD on 04/07/2017 14:29 .R/
[2017-04-07] MEDS: metroNIDAZOLE 500 MG/NS (PMX) 100 ML IVPB SCH ×2 (14:35→21:35)
--- NOTE | 2017-04-07 15:05 | PN ---
Date/Time of Note Date/Time of Note DATE: 04/07/17 TIME: 14:57 Assessment/Plan VTE Prophylaxis VTE Prophylaxis Intervention: SCD's Lines/Catheters IV Catheter Type (from [facility] Saline Lock Urinary Cath still in place: Yes Reason Cath still needed: other (indicate) Assessment/Plan Chief Complaint/Hosp Course 1. Near syncope. Most probably from underlying vasovagal response since the patient had multiple episodes of diarrhea. Brain CT scan negative for any acute findings. Carotid Doppler study negative for any hemodynamically significant stenosis. 2D echocardiogram showing ejection fraction of 45%. The patient to be evaluated by cardiology and neurology. 2. Paroxysmal atrial tachycardia/frequent PVCs. Cardiology to evaluate the patient. Rate is controlled. 3. Diarrhea. Etiology unclear. The patient will be ruled out for infectious causes. CT evidence of colitis. We will continue the patient on antibiotics 4. Essential hypertension. Patient's blood pressure is currently on the lower side. The patient's antihypertensives will be put on hold. 5. Hypothyroidism. Continue Synthroid. 6. Acute nonoliguric kidney injury. Etiology could be hemodynamics along with the use of nephrotoxic medications. The patient's RONY inhibitors and Lasix will be put on hold. 7. Cardiomyopathy with ejection fraction of 45%. Patient was on RONY inhibitors. This will be put on hold because of worsening renal function. To be evaluated by cardiology. 8. Pre-diabetes. Hemoglobin A1c of 6.1. Will monitor random blood glucose levels. 9. Transient hypoxic episode. Etiology unclear. Chest CTA negative for any pulmonary embolism. 10. Rhabdomyolysis. Etiology unclear. Will monitor. Gentle hydration. 11. Chronic dermatitis. The patient follows up with outpatient dermatology for the same. 12. Fluids, electrolytes, and nutrition. Regular diet. 13. DVT prophylaxis. Bilateral sequential compression devices. 14. Plan. Continue antimicrobials. Obtain neurology consult. Hold nephrotoxic medications. Case discussed with Dr. Carbone. Plan of care was explained to the patient's family was at the bedside. Problems: Subjective 24 Hr Interval Summary Free Text/Dictation Complains of feeling weak. Patient continues to have a rectal tube that is draining liquid stool. Exam/Review of Systems Vital Signs Vitals Vital Signs Date Time Temp Pulse Resp B/P Pulse Ox O2 Delivery O2 Flow Rate FiO2 04/07/17 12:55 84 04/07/17 07:26 98.2 16 107/50 92 04/07/17 00:20 3.0 04/07/17 00:20 Nasal Cannula Intake and Output 04/06/17 04/06/17 04/07/17 15:00 23:00 07:00 Intake Total 500 ml Output Total 0 ml 1200 ml Balance 0 ml -700 ml Exam General: Thin, frail looking 82 year-old female lying in bed in no apparent distress. HEENT: Normocephalic, atraumatic. Eyes: Anicteric sclerae, conjunctivae clear. ENT: Nasal septum midline, oral mucosa moist. Neck supple, no JVD noticed. Respiratory: Bilaterally diminished breath sounds. No use of accessory muscles of respiration. No adventitious breath sounds. Cardiovascular: S1, S2 heard. Irregularly irregular rhythm. Abdomen: Soft, nontender, and nondistended. Bowel sounds positive in all 4 quadrants. Genitourinary: Deferred. Extremities: No cyanosis no edema. Peripheral pulses palpable. Neurologic: Cranial nerves II through XII grossly intact. The patient is awake, alert, and oriented. Skin: Mottled skin of B/L LE. Results Result Diagram: 04/07/1762004/07/17620 Results 24 hrs Laboratory Tests Test 04/06/17 15:50 04/06/17 18:00 04/06/17 20:00 04/06/17 23:02 Lactic Acid Level 2.5 *H 3.4 *H 2.3 *H Creatine Kinase 92 387 #H 697 #H Creatine Kinase Index 3.4 1.4 1.0 Creatinine Kinase MB (Mass) 3.14 H 5.26 H 6.74 H Troponin I < 0.012 0.022 0.036 Test 04/07/17 00:06 04/07/17 03:11 04/07/17 06:21 Sodium Level 136 136 Potassium Level 4.4 4.0 Chloride Level 110 109 Carbon Dioxide Level 21 22 Anion Gap 9 # 9 Blood Urea Nitrogen 18 16 Creatinine 1.21 H 1.18 H Glucose Level 134 # 109 Lactic Acid Level 1.0 Calcium Level 7.7 L 7.4 L Total Bilirubin 0.0 L 0.1 L Direct Bilirubin 0.00 0.00 Indirect Bilirubin 0.0 0.1 Aspartate Amino Transf (AST/SGOT) 44 47 H Alanine Aminotransferase (ALT/SGPT) 33 36 Alkaline Phosphatase 67 59 Total Protein 5.9 #L 5.5 L Albumin 2.8 #L 2.6 L Globulin 3.10 2.90 Albumin/Globulin Ratio 0.90 0.89 D-Dimer > 21569.00 H White Blood Count 11.2 #H Red Blood Count 3.18 #L Hemoglobin 9.7 #L Hematocrit 30.4 #L Mean Corpuscular Volume 95.6 Mean Corpuscular Hemoglobin 30.5 Mean Corpuscular Hemoglobin Concent 31.9 L Red Cell Distribution Width 14.5 Platelet Count 195 # Mean Platelet Volume 9.4 Neutrophils % 85.6 H Lymphocytes % 6.9 L Monocytes % 6.9 Eosinophils % 0.0 Basophils % 0.2 Nucleated Red Blood Cells % 0.0 Neutrophils # 9.6 H Lymphocytes # 0.8 Monocytes # 0.8 Eosinophils # 0.0 Basophils # 0.0 Nucleated Red Blood Cells # 0.0 Phosphorus Level 3.6 Magnesium Level 1.6 L Creatine Kinase 969 H Creatine Kinase Index 0.5 Creatinine Kinase MB (Mass) 4.82 H Troponin I 0.038 B-Type Natriuretic Peptide 618 H Triglycerides Level 45 Cholesterol Level 98 L LDL Cholesterol, Calculated 27 HDL Cholesterol 62 Cholesterol/HDL Ratio 1.5 Medications Medications Current Medications Ondansetron HCl (Zofran Inj) 4 mg Q6H PRN IV NAUSEA AND/OR VOMITING; Start 04/06/17 at 16:30 Acetaminophen (Tylenol Tab) 650 mg Q6H PRN PO PAIN LEVEL 1-3 OR FEVER; Start 04/06/17 at 16:30 Acetaminophen/ Hydrocodone Bitart ([place] (5/325)) 1 tab Q6H PRN PO PAIN LEVEL 4 -6; Start 04/06/17 at 16:30 Furosemide (Lasix) 20 mg DAILY PO Last administered on 04/07/17 08:54; Admin Dose 20 MG; Start 04/07/17 at 09:00 Lisinopril (Zestril) 5 mg DAILY PO Last administered on 04/07/17 08:53; Admin Dose 5 MG; Start 04/07/17 at 09:00 Diltiazem HCl 10 mg 10 mg Q2H PRN IV HR>160; Start 04/06/17 at 17:00 Ceftriaxone Sodium 50 ml @ 100 mls/hr Q24H IVPB Last administered on 08:53; Admin Dose 100 MLS/HR; Start 04/07/17 at 07:30 Metronidazole (Flagyl 500 Mg (Pmx)) 100 ml @ 100 mls/hr Q8 IVPB Last administered on 04/07/17t 14:35; Admin Dose 100 MLS/HR; Start 04/07/17 at 14:00 ARAM PAZ NP Apr 07, 2017 15:05
--- NOTE | 2017-04-07 15:08 | CONS ---
Date/Time of Note Date/Time of Note DATE: 04/07/17 TIME: 15:05 Assessment/Plan Assessment/Plan Chief Complaint/Hosp Course Presyncope: Likely vasovagal/orthostatic episode secondary to dehydration based on history and presentation. Hypotension: secondary to dehydration Diarrhea: ?viral gastroenteritis. Being ruled out for c diff Cardiomyopathy: EF 25% by echo previously, 52% by MRI. On echo here mild dysfunction ~45% in some views. Compensated by exam SVT: had a few beats of possible AT and has frequent PACs. Would benefit from low dose coreg once BP better HTN -agree with IVF, hold lasix -can switch lisinopril to coreg -monitor on tele Problems: Consultation Date/Type/Reason Admit Date/Time Date of Consultation: Apr 07, 2017 Type of Consultation: Cardiology Reason for Consultation near syncope Referring Provider: ARAM PAZ LAUNDRY TECHNICIAN Hx of Present Illness 82 yo F with a h/o cardiomyopathy, HTN, who presented with a near syncopal episode. The pt notes that she was at the restroom in a restaurant and had diarrhea. She started to feel very weak and stood up to go to the door when she started to feel very light headed and had to crawl to the door. She opened the door and asked for help but nobody heard her so she got herself to a bench where she "collapsed". She remembers the events but remembers not having the energy to respond to paramedics. Her BP by paramedics was apparently 50/20. It improved with IVF and was in the 80s in the ER and eventually normalized. She apparently had a temp of 101 in the ER (not documented) and has had severe diarrhea since, requiring a rectal tube. She feels better now. No prior history of such events or syncope. Apparently was told she has an EF of 25%v by echo but then had an MRI at [facility] which showed 52%. per hPI Eyes: no complaints ENT: no complaints Respiratory: no complaints Cardiovascular: orthopenea Gastrointestinal: diarrhea Genitourinary: no complaints Musculoskeletal: no complaints Skin: skin lesions Neurologic: dizziness Lymphatic: no complaints Psychological: no complaints Immunologic: urticaria Past Medical History Medical History: hypertension, hypothyroid, other (reported cardiomyopathy, dermatitis) Past Surgical History Past Surgical Hx: other (Right hip replacement, back surgery) Social History Alcohol Use: none Smoking Status: Never smoker Drug Use: none Exam/Review of Systems Vital Signs Vitals Vital Signs Date Time Temp Pulse Resp B/P Pulse Ox O2 Delivery O2 Flow Rate FiO2 04/07/17 12:55 84 04/07/17 07:26 98.2 16 107/50 92 04/07/17 00:20 3.0 04/07/17 00:20 Nasal Cannula Intake and Output 04/06/17 04/06/17 04/07/17 15:00 23:00 07:00 Intake Total 500 ml Output Total 0 ml 1200 ml Balance 0 ml -700 ml Exam Constitutional: alert, oriented Psych: nl mood/affect, no complaints Head: atraumatic, normocephalic Neck: No jvd Respiratory: clear to auscultation, No crackles/rales Cardiovascular: systolic murmur (2/6 YADI), No edema, No regular rate and rhythm (ectopy noted, otherwise regular rate and rhythm ) Gastrointestinal: non-tender, soft Skin: rash or lesions Results EKG: sinus, PACs, nonspecific IVCD Result Diagram: 04/07/1762004/07/17620 Results 24 hrs Laboratory Tests Test 04/06/17 15:50 04/06/17 18:00 04/06/17 20:00 04/06/17 23:02 Lactic Acid Level 2.5 *H 3.4 *H 2.3 *H Creatine Kinase 92 387 #H 697 #H Creatine Kinase Index 3.4 1.4 1.0 Creatinine Kinase MB (Mass) 3.14 H 5.26 H 6.74 H Troponin I < 0.012 0.022 0.036 Test 04/07/17 00:06 04/07/17 03:11 04/07/17 06:21 Sodium Level 136 136 Potassium Level 4.4 4.0 Chloride Level 110 109 Carbon Dioxide Level 21 22 Anion Gap 9 # 9 Blood Urea Nitrogen 18 16 Creatinine 1.21 H 1.18 H Glucose Level 134 # 109 Lactic Acid Level 1.0 Calcium Level 7.7 L 7.4 L Total Bilirubin 0.0 L 0.1 L Direct Bilirubin 0.00 0.00 Indirect Bilirubin 0.0 0.1 Aspartate Amino Transf (AST/SGOT) 44 47 H Alanine Aminotransferase (ALT/SGPT) 33 36 Alkaline Phosphatase 67 59 Total Protein 5.9 #L 5.5 L Albumin 2.8 #L 2.6 L Globulin 3.10 2.90 Albumin/Globulin Ratio 0.90 0.89 D-Dimer > 64050.00 H White Blood Count 11.2 #H Red Blood Count 3.18 #L Hemoglobin 9.7 #L Hematocrit 30.4 #L Mean Corpuscular Volume 95.6 Mean Corpuscular Hemoglobin 30.5 Mean Corpuscular Hemoglobin Concent 31.9 L Red Cell Distribution Width 14.5 Platelet Count 195 # Mean Platelet Volume 9.4 Neutrophils % 85.6 H Lymphocytes % 6.9 L Monocytes % 6.9 Eosinophils % 0.0 Basophils % 0.2 Nucleated Red Blood Cells % 0.0 Neutrophils # 9.6 H Lymphocytes # 0.8 Monocytes # 0.8 Eosinophils # 0.0 Basophils # 0.0 Nucleated Red Blood Cells # 0.0 Phosphorus Level 3.6 Magnesium Level 1.6 L Creatine Kinase 969 H Creatine Kinase Index 0.5 Creatinine Kinase MB (Mass) 4.82 H Troponin I 0.038 B-Type Natriuretic Peptide 618 H Triglycerides Level 45 Cholesterol Level 98 L LDL Cholesterol, Calculated 27 HDL Cholesterol 62 Cholesterol/HDL Ratio 1.5 Medications Medications Current Medications Ondansetron HCl (Zofran Inj) 4 mg Q6H PRN IV NAUSEA AND/OR VOMITING; Start 04/06/17 at 16:30 Acetaminophen (Tylenol Tab) 650 mg Q6H PRN PO PAIN LEVEL 1-3 OR FEVER; Start 04/06/17 at 16:30 Acetaminophen/ Hydrocodone Bitart ([place] (5/325)) 1 tab Q6H PRN PO PAIN LEVEL 4 -6; Start 04/06/17 at 16:30 Furosemide (Lasix) 20 mg DAILY PO Last administered on 04/07/17 08:54; Admin Dose 20 MG; Start 04/07/17 at 09:00 Lisinopril (Zestril) 5 mg DAILY PO Last administered on 04/07/17 08:53; Admin Dose 5 MG; Start 04/07/17 at 09:00 Diltiazem HCl 10 mg 10 mg Q2H PRN IV HR>160; Start 04/06/17 at 17:00 Ceftriaxone Sodium 50 ml @ 100 mls/hr Q24H IVPB Last administered on 08:53; Admin Dose 100 MLS/HR; Start 04/07/17 at 07:30 Metronidazole (Flagyl 500 Mg (Pmx)) 100 ml @ 100 mls/hr Q8 IVPB Last administered on 04/07/17t 14:35; Admin Dose 100 MLS/HR; Start 04/07/17 at 14:00 BRI SORIANO Apr 07, 2017 15:08
[2017-04-07 16:21] LABS: ADD UMIC YES; UR ASCORBIC ACID NEGATIVE (NEGATIVE); UR BILIRUBIN (Dip) NEGATIVE (NEGATIVE); UR BLOOD (Dip) 2+ mg/dL (NEGATIVE); UR CLARITY SLIGHTLY CLOUDY (CLEAR); UR COLOR YELLOW (YELLOW); UR GLUCOSE (Dip) NEGATIVE (NEGATIVE); UR KETONES (Dip) TRACE mg/dL (NEGATIVE); UR LEUKOCYTE ESTERASE (Dip) TRACE Leu/ul (NEGATIVE); UR NITRITE (Dip) NEGATIVE (NEGATIVE); UR RBC 16 /HPF (0-5); UR SPECIFIC GRAVITY (Dip) 1.011 (1.003-1.030); UR TOTAL PROTEIN (Dip) 1+ mg/dl (NEGATIVE); UR UROBILINOGEN (Dip) NEGATIVE (NEGATIVE)
[2017-04-07] MEDS ORDERED: GABAPENTIN 300 MG CAP PO PRN (17:30)
[2017-04-07] MEDS: GABAPENTIN 300 MG CAP PO PRN (17:49)
--- NOTE | 2017-04-07 19:21 | RADRPT ---
PROCEDURE: MR Brain without contrast. CLINICAL INDICATION: Syncope TECHNIQUE: An MRI of the brain was performed on a 1.5 shea scanner utilizing the following sequen chelsie: Sagittal T1 weighted, axial T2 weighted, axial FLAIR, coronal GRE, and axial diffusion weighted with ADC mapping. COMPARISON: CT brain 04/06/2017 FINDINGS: No evidence of restricted diffusion to suggest acute or early subacute ischemic infarction. There i s no evidence of intracranial hemorrhage, mass effect, or midline shift. No extra-axial fluid collec tions are seen. No hypointense signal abnormalities are seen on the GRE images to suggest the presence of blood degr adation products. Scattered nonspecific FLAIR/T2 signal hyperintensity foci in the subcortical and p eriventricular white matter compatible with sequelae of moderate chronic microvascular ischemic dise ase. The brain parenchyma is otherwise normal morphology with preservation of anderson white differentiation. Moderate prominence of the ventricles and subarachnoid cerebral and cerebellar volume loss. Bilate ral lens surgery. The posterior fossa contents, brainstem, seventh - eighth cranial nerve complexes, pituitary axis, o rbits, paranasal sinuses, and mastoid air cells are unremarkable. Normal flow voids are visible in the proximal intracranial arteries and dural sinuses, indicating pa tency. IMPRESSION: 1. No acute or early subacute ischemic infarction or intracranial hemorrhage. 2. Moderate chronic microvascular ischemic changes of the deep white matter and moderate central ce rebral and cerebellar volume loss. RPTAT:AAJJ Physician Sandeep Date Time Electronically viewed and signed by Physician Sandeep on 04/07/2017 19:21 PHILL/
[2017-04-08] VITALS (13 sets, daily range): BP systolic 115–142; BP diastolic 60–87; PULSE 72–170; RESP 18–19
[2017-04-08] MEDS: LEVOTHYROXINE 100 MCG TAB PO SCH (06:10)
[2017-04-08] MEDS: metroNIDAZOLE 500 MG/NS (PMX) 100 ML IVPB SCH ×3 (06:10→22:54)
[2017-04-08 06:12] LABS: BASOPHILS % 0.3 % (0.0-2.0); EOSINOPHILS # 0.1 10^3/ul (0.0-0.5); EOSINOPHILS % 1.2 % (0.0-7.0); HEMATOCRIT 28.6 % (37.0-47.0); HEMOGLOBIN 9.1 g/dl (12.0-16.0); LYMPHOCYTES # 0.9 10^3/ul (0.8-2.9); LYMPHOCYTES % 9.1 % (15.0-51.0); MEAN CORPUSCULAR HEMOGLOBIN 30.3 pg (29.0-33.0); MEAN CORPUSCULAR HGB CONC 31.8 g/dl (32.0-37.0); MEAN CORPUSCULAR VOLUME 95.3 fl (82.0-101.0); MEAN PLATELET VOLUME 9.5 fl (7.4-10.4); MONOCYTE # 0.4 10^3/ul (0.3-0.9); MONOCYTES % 4.1 % (0.0-11.0); NEUTROPHIL # 8.7 10^3/ul (1.6-7.5); NEUTROPHILS % 84.9 % (39.0-77.0); PLATELET COUNT 190 10^3/UL (140-415); RED CELL DISTRIBUTION WIDTH 14.8 % (11.5-14.5); WHITE BLOOD COUNT 10.3 10^3/ul (4.8-10.8)
[2017-04-08 06:42] LABS: CALCIUM 7.6 mg/dl (8.4-10.2); CREATININE 0.89 mg/dl (0.44-1.00); MAGNESIUM 2.3 mg/dl (1.7-2.5); PHOSPHORUS 2.7 mg/dl (2.5-4.9); POTASSIUM 3.6 mmol/L (3.5-5.1)
[2017-04-08 06:50] LABS: CK-MB 2.23 ng/ml (0.0-2.4); TROPONIN-I 0.024 ng/ml (0.00-0.12)
--- NOTE | 2017-04-08 07:57 | CONS ---
DATE OF ADMISSION: 04/06/2017 DATE OF CONSULTATION: 04/07/2017 REASON FOR CONSULTATION: Chronic kidney disease. REQUESTING PHYSICIAN: Dr. Collins. HISTORY OF PRESENT ILLNESS: This is an 82-year-old female with a past medical history of hypertensi on and hypothyroidism who presents to [facility] due to diarrhea. Patient states she has been having multiple bouts of loose stools. She is also feeling dizzy with abdominal pain. As a result, she came into the emergency room for evaluation. Upon arrival, the patient had a CT a ngio performed which showed no evidence PE or dissection, evidence of colitis. The patient also had CT of the pelvis which showed findings consistent with colitis. The patient on telemetry has been receiving antibiotic therapy and IV fluids. In terms of the patient's renal history, the patient said she had renal education through ____. The patient denies any episodes of frothy urine. Symptoms such as hematochezia. PAST MEDICAL HISTORY: History of hypertension, hypothyroidism, cardiomyopathy, dermatitis. PAST SURGICAL HISTORY: Status post back surgery, right knee replacement. SOCIAL HISTORY: She does not smoke, drink or use drugs. FAMILY HISTORY: Noncontributory. REVIEW OF SYSTEMS: As reviewed in HPI and otherwise negative. PHYSICAL EXAMINATION: VITAL SIGNS: Blood pressure is ____ HEENT: Normocephalic. NECK: Supple. HEART: Regular rate. LUNGS: Show diminished breath sounds at the base. ABDOMEN: Soft and nontender to palpation, no rebound or guarding. EXTREMITIES: Negative for cyanosis, clubbing, or edema. SKIN: No rashes. MUSCULOSKELETAL: No joint effusion. LABORATORY: Sodium 136, ___ magnesium 1.6, white count 11.2, hemoglobin 9.7, hematocrit 30.4, plate let count 195. ASSESSMENT AND PLAN: This is an 82-year-old female: 1. Chronic kidney disease with possible acute kidney injury, etiology may be secondary to hemodynam ics due to gastrointestinal loss or possible recent diuretic therapy. The plan at this point is to continue the current treatment plan and continue IV antibiotics. We will check a urinalysis and we will check urine electrolytes. We will continue supportive care. 2. Monitor the ____ Start him on solids. Continue current antibiotic regimen. Do a gastroenterolog y evaluation. 3. Near syncope. Continue medical management and follow with cardiology. 4. History of congestive heart failure. Continue to monitor closely. 5. History of dermatitis. Continue medical management. Dictated By: BETSY MORAN/ALEXANDRA Conf#: [id number] DID#: [id number]
[2017-04-08] MEDS: CEFTRIAXONE 1 GM/50 ML (PMX) 50 ML IVPB SCH (08:33)
[2017-04-08] MEDS: GABAPENTIN 300 MG CAP PO PRN ×2 (08:42→20:57)
--- NOTE | 2017-04-08 09:17 | PN ---
Date/Time of Note Date/Time of Note DATE: 04/08/17 TIME: 09:11 Assessment/Plan VTE Prophylaxis VTE Prophylaxis Intervention: SCD's Lines/Catheters IV Catheter Type (from [facility]): Saline Lock Urinary Cath still in place: Yes Reason Cath still needed: other (indicate) Assessment/Plan Chief Complaint/Hosp Course 1. Near syncope. Most probably from underlying vasovagal response since the patient had multiple episodes of diarrhea. Brain CT scan and brain MRI negative for any acute findings. Carotid Doppler study negative for any hemodynamically significant stenosis. 2D echocardiogram showing ejection fraction of 45%. The patient to be evaluated by neurology. 2. Paroxysmal atrial tachycardia and frequent PVCs. Cardiology following. Keep magnesium and potassium at optimal levels. 3. Diarrhea. Etiology unclear. The patient will be ruled out for infectious causes. CT evidence of colitis. We will continue the patient on antibiotics. Stool studies are still pending for unclear reasons. Obtain Gastroenterology consult. 4. Essential hypertension. Resume antihypertensives as per cardiology. 5. Hypothyroidism. Continue Synthroid. 6. Acute nonoliguric kidney injury. Resolved. Etiology could be hemodynamics along with the use of nephrotoxic medications. Renal ultrasound showing evidence of chronic kidney disease. 7. Cardiomyopathy with ejection fraction of 45%. Patient was on RONY inhibitors. This was put on hold because of worsening renal function. Medications to be resumed as per Cardiology. 8. Pre-diabetes. Hemoglobin A1c of 6.1. Will monitor random blood glucose levels. 9. Transient hypoxic episode. Resolved. Etiology unclear. Chest CTA negative for any pulmonary embolism. 10. Rhabdomyolysis. Etiology unclear. Will monitor. Gentle hydration. Improving. 11. Chronic dermatitis. The patient follows up with outpatient dermatology for the same. Continue home medications. 12. Involuntary facial movements. Etiology unclear. To be evaluated by Neurology. 13. Fluids, electrolytes, and nutrition. Regular diet. 14. DVT prophylaxis. Bilateral sequential compression devices. 15. Plan. Continue antimicrobials. Await neurology evaluation. Continue physical therapy. Obtain Gastroenterology evaluation. Case discussed with Dr. Carbnoe. Problems: Subjective 24 Hr Interval Summary Free Text/Dictation Denies any abdominal pain. Continues to have watery diarrhea. Exam/Review of Systems Vital Signs Vitals Vital Signs Date Time Temp Pulse Resp B/P Pulse Ox O2 Delivery O2 Flow Rate FiO2 04/08/17 07:29 97.7 81 18 115/61 97 04/08/17 06:07 2.0 04/07/17 20:00 Nasal Cannula Intake and Output 04/07/17 04/07/17 04/08/17 15:00 23:00 07:00 Intake Total 580 ml Output Total 1650 ml Balance -1070 ml Exam General: Thin, frail looking 82 year-old female lying in bed in no apparent distress. HEENT: Normocephalic, atraumatic. Eyes: Anicteric sclerae, conjunctivae clear. ENT: Nasal septum midline, oral mucosa moist. Neck supple, no JVD noticed. Respiratory: Bilaterally diminished breath sounds. No use of accessory muscles of respiration. No adventitious breath sounds. Cardiovascular: S1, S2 heard. Irregularly irregular rhythm. Abdomen: Soft, nontender, and nondistended. Bowel sounds positive in all 4 quadrants. Genitourinary: Deferred. Extremities: No cyanosis no edema. Peripheral pulses palpable. Neurologic: Cranial nerves II through XII grossly intact. The patient is awake, alert, and oriented. Skin: Mottled skin of B/L LE. Results Result Diagram: 04/08/17 0550 04/08/17 0526 Results 24 hrs Laboratory Tests Test 04/08/17 05:26 04/08/17 05:50 Sodium Level 140 Potassium Level 3.6 Chloride Level 111 H Carbon Dioxide Level 24 Anion Gap 9 Blood Urea Nitrogen 11 Creatinine 0.89 Glucose Level 83 Calcium Level 7.6 L Phosphorus Level 2.7 Magnesium Level 2.3 Creatine Kinase 791 H Creatine Kinase Index 0.3 Creatinine Kinase MB (Mass) 2.23 Troponin I 0.024 White Blood Count 10.3 Red Blood Count 3.00 L Hemoglobin 9.1 L Hematocrit 28.6 L Mean Corpuscular Volume 95.3 Mean Corpuscular Hemoglobin 30.3 Mean Corpuscular Hemoglobin Concent 31.8 L Red Cell Distribution Width 14.8 H Platelet Count 190 Mean Platelet Volume 9.5 Neutrophils % 84.9 H Lymphocytes % 9.1 L Monocytes % 4.1 Eosinophils % 1.2 Basophils % 0.3 Nucleated Red Blood Cells % 0.0 Neutrophils # 8.7 H Lymphocytes # 0.9 Monocytes # 0.4 Eosinophils # 0.1 Basophils # 0.0 Nucleated Red Blood Cells # 0.0 Medications Medications Current Medications Ondansetron HCl (Zofran Inj) 4 mg Q6H PRN IV NAUSEA AND/OR VOMITING; Start 04/06/17 at 16:30 Acetaminophen (Tylenol Tab) 650 mg Q6H PRN PO PAIN LEVEL 1-3 OR FEVER; Start 04/06/17 at 16:30 Acetaminophen/ Hydrocodone Bitart ([place] (5/325)) 1 tab Q6H PRN PO PAIN LEVEL 4 -6; Start 04/06/17 at 16:30 Lisinopril (Zestril) 5 mg DAILY PO Last administered on 04/07/17 08:53; Admin Dose 5 MG; Start 04/07/17 at 09:00; Status Future Hold Diltiazem HCl 10 mg 10 mg Q2H PRN IV HR>160; Start 04/06/17 at 17:00 Ceftriaxone Sodium 50 ml @ 100 mls/hr Q24H IVPB Last administered on 08:33; Admin Dose 100 MLS/HR; Start 04/07/17 at 07:30 Metronidazole (Flagyl 500 Mg (Pmx)) 100 ml @ 100 mls/hr Q8 IVPB Last administered on 04/08/17 06:10; Admin Dose 100 MLS/HR; Start 04/07/17 at 14:00 Gabapentin (Neurontin) 300 mg Q12 PRN PO Itching Last administered on 08:42; Admin Dose 300 MG; Start 04/07/17 at 18:00 ARAM PAZ NP Apr 08, 2017 09:17 ARAM PAZ NP Apr 08, 2017 09:17
[2017-04-08] MEDS ORDERED: POTASSIUM CHLORIDE 20 MEQ POWDER FOR ORAL SOLN PO ONE (09:30)
--- NOTE | 2017-04-08 09:52 | PN ---
Date/Time of Note Date/Time of Note DATE: 04/08/17 TIME: 09:49 Assessment/Plan VTE Prophylaxis VTE Prophylaxis Intervention: other Lines/Catheters IV Catheter Type (from Nrs): Saline Lock Urinary Cath still in place: Yes Reason Cath still needed: urinary retention Assessment/Plan Chief Complaint/Hosp Course Renal follow up d/w Dr Best no significant event overnight no nausea, fever, chills, hematuria, new rash REVIEW OF SYSTEMS: As reviewed in HPI and otherwise negative. PHYSICAL EXAMINATION: HEENT: Normocephalic. NECK: Supple. HEART: Regular rate. LUNGS: Show diminished breath sounds at the base. ABDOMEN: Soft and nontender to palpation, no rebound or guarding. EXTREMITIES: Negative for cyanosis, clubbing, or edema. SKIN: No rashes. MUSCULOSKELETAL: No joint effusion. ASSESSMENT AND PLAN: This is an 82-year-old female: 1. Chronic kidney disease with possible acute kidney injury, etiology may be secondary to hemodynamics due to gastrointestinal loss or possible recent diuretic therapy. The plan at this point is to continue the current treatment plan and continue IV antibiotics. We will continue supportive care. 2. Near syncope. Continue medical management and follow with cardiology. 3. History of congestive heart failure. Continue to monitor closely. Problems: Exam/Review of Systems Vital Signs Vitals Vital Signs Date Time Temp Pulse Resp B/P Pulse Ox O2 Delivery O2 Flow Rate FiO2 04/08/17 08:00 88 04/08/17 07:29 97.7 18 115/61 97 04/08/17 06:07 2.0 04/07/17 20:00 Nasal Cannula Intake and Output 04/07/17 04/07/17 04/08/17 15:00 23:00 07:00 Intake Total 580 ml Output Total 1650 ml Balance -1070 ml Results Result Diagram: 04/08/17 0550 04/08/17 0526 Results 24 hrs Laboratory Tests Test 04/08/17 05:26 04/08/17 05:50 Sodium Level 140 Potassium Level 3.6 Chloride Level 111 H Carbon Dioxide Level 24 Anion Gap 9 Blood Urea Nitrogen 11 Creatinine 0.89 Glucose Level 83 Calcium Level 7.6 L Phosphorus Level 2.7 Magnesium Level 2.3 Creatine Kinase 791 H Creatine Kinase Index 0.3 Creatinine Kinase MB (Mass) 2.23 Troponin I 0.024 White Blood Count 10.3 Red Blood Count 3.00 L Hemoglobin 9.1 L Hematocrit 28.6 L Mean Corpuscular Volume 95.3 Mean Corpuscular Hemoglobin 30.3 Mean Corpuscular Hemoglobin Concent 31.8 L Red Cell Distribution Width 14.8 H Platelet Count 190 Mean Platelet Volume 9.5 Neutrophils % 84.9 H Lymphocytes % 9.1 L Monocytes % 4.1 Eosinophils % 1.2 Basophils % 0.3 Nucleated Red Blood Cells % 0.0 Neutrophils # 8.7 H Lymphocytes # 0.9 Monocytes # 0.4 Eosinophils # 0.1 Basophils # 0.0 Nucleated Red Blood Cells # 0.0 Medications Medications Current Medications Ondansetron HCl (Zofran Inj) 4 mg Q6H PRN IV NAUSEA AND/OR VOMITING; Start 04/06/17 at 16:30 Acetaminophen (Tylenol Tab) 650 mg Q6H PRN PO PAIN LEVEL 1-3 OR FEVER; Start 04/06/17 at 16:30 Acetaminophen/ Hydrocodone Bitart ([place] (5/325)) 1 tab Q6H PRN PO PAIN LEVEL 4 -6; Start 04/06/17 at 16:30 Lisinopril (Zestril) 5 mg DAILY PO Last administered on 04/07/17 08:53; Admin Dose 5 MG; Start 04/07/17 at 09:00; Status Future Hold Diltiazem HCl 10 mg 10 mg Q2H PRN IV HR>160; Start 04/06/17 at 17:00 Ceftriaxone Sodium 50 ml @ 100 mls/hr Q24H IVPB Last administered on 08:33; Admin Dose 100 MLS/HR; Start 04/07/17 at 07:30 Metronidazole (Flagyl 500 Mg (Pmx)) 100 ml @ 100 mls/hr Q8 IVPB Last administered on 04/08/17 06:10; Admin Dose 100 MLS/HR; Start 04/07/17 at 14:00 Gabapentin (Neurontin) 300 mg Q12 PRN PO Itching Last administered on 08:42; Admin Dose 300 MG; Start 04/07/17 at 18:00 JOSEPHINE ROSA DO Apr 08, 2017 09:51
--- NOTE | 2017-04-08 10:06 | CONS ---
Date/Time of Note Date/Time of Note DATE: 04/08/17 TIME: 10:04 Assessment/Plan Assessment/Plan Chief Complaint/Hosp Course Presyncope: Likely vasovagal/orthostatic episode secondary to dehydration based on history and presentation. Hypotension: secondary to dehydration Diarrhea: ?viral gastroenteritis. Being ruled out for c diff Cardiomyopathy: EF 25% by echo previously, 52% by MRI. On echo here mild dysfunction ~45% in some views. Compensated by exam SVT: few beats of possible AT and has frequent PACs. Would benefit from low dose BB HTN -consider low dose beta yvonne -monitor on tele Problems: Consultation Date/Type/Reason Admit Date/Time Apr 06, 2017 at 15:27 Initial Consult Date 04/07/17 Type of Consultation: Cardiology Referring Provider: ARAM PAZ NP 24 HR Interval Summary Free Text/Dictation No o/n events. Doing well. No complaints except for itching. Renal function normalized Exam/Review of Systems Vital Signs Vitals Vital Signs Date Time Temp Pulse Resp B/P Pulse Ox O2 Delivery O2 Flow Rate FiO2 04/08/17 08:00 88 04/08/17 07:29 97.7 18 115/61 97 04/08/17 06:07 2.0 04/07/17 20:00 Nasal Cannula Intake and Output 04/07/17 04/07/17 04/08/17 15:00 23:00 07:00 Intake Total 580 ml Output Total 1650 ml Balance -1070 ml Exam Constitutional: alert, oriented Psych: nl mood/affect, no complaints Head: atraumatic, normocephalic Neck: No jvd Respiratory: clear to auscultation, No crackles/rales Cardiovascular: regular rate and rhythm, No edema Gastrointestinal: non-tender, soft Neurological: nl mental status, nl speech Results Result Diagram: 04/08/17 0550 04/08/17 0526 Results 24 hrs Laboratory Tests Test 04/08/17 05:26 04/08/17 05:50 Sodium Level 140 Potassium Level 3.6 Chloride Level 111 H Carbon Dioxide Level 24 Anion Gap 9 Blood Urea Nitrogen 11 Creatinine 0.89 Glucose Level 83 Calcium Level 7.6 L Phosphorus Level 2.7 Magnesium Level 2.3 Creatine Kinase 791 H Creatine Kinase Index 0.3 Creatinine Kinase MB (Mass) 2.23 Troponin I 0.024 White Blood Count 10.3 Red Blood Count 3.00 L Hemoglobin 9.1 L Hematocrit 28.6 L Mean Corpuscular Volume 95.3 Mean Corpuscular Hemoglobin 30.3 Mean Corpuscular Hemoglobin Concent 31.8 L Red Cell Distribution Width 14.8 H Platelet Count 190 Mean Platelet Volume 9.5 Neutrophils % 84.9 H Lymphocytes % 9.1 L Monocytes % 4.1 Eosinophils % 1.2 Basophils % 0.3 Nucleated Red Blood Cells % 0.0 Neutrophils # 8.7 H Lymphocytes # 0.9 Monocytes # 0.4 Eosinophils # 0.1 Basophils # 0.0 Nucleated Red Blood Cells # 0.0 Medications Medications Current Medications Ondansetron HCl (Zofran Inj) 4 mg Q6H PRN IV NAUSEA AND/OR VOMITING; Start 04/06/17 at 16:30 Acetaminophen (Tylenol Tab) 650 mg Q6H PRN PO PAIN LEVEL 1-3 OR FEVER; Start 04/06/17 at 16:30 Acetaminophen/ Hydrocodone Bitart ([place] (5/325)) 1 tab Q6H PRN PO PAIN LEVEL 4 -6; Start 04/06/17 at 16:30 Lisinopril (Zestril) 5 mg DAILY PO Last administered on 04/07/17 08:53; Admin Dose 5 MG; Start 04/07/17 at 09:00; Status Future Hold Diltiazem HCl 10 mg 10 mg Q2H PRN IV HR>160; Start 04/06/17 at 17:00 Ceftriaxone Sodium 50 ml @ 100 mls/hr Q24H IVPB Last administered on 08:33; Admin Dose 100 MLS/HR; Start 04/07/17 at 07:30 Metronidazole (Flagyl 500 Mg (Pmx)) 100 ml @ 100 mls/hr Q8 IVPB Last administered on 04/08/17 06:10; Admin Dose 100 MLS/HR; Start 04/07/17 at 14:00 Gabapentin (Neurontin) 300 mg Q12 PRN PO Itching Last administered on 08:42; Admin Dose 300 MG; Start 04/07/17 at 18:00 BRI SORIANO Apr 08, 2017 10:06
[2017-04-08] MEDS ORDERED: GABA300C16 PO (13:17)
[2017-04-08] MEDS ORDERED: RANI150T5 PO (13:18)
[2017-04-08] MEDS ORDERED: LORA10TA3 PO (13:19)
[2017-04-08] MEDS ORDERED: BETA50CR5 TP (13:21)
--- NOTE | 2017-04-08 15:30 | CONS ---
Date/Time of Note Date/Time of Note DATE: 04/08/17 TIME: 15:26 Assessment/Plan Assessment/Plan Chief Complaint/Hosp Course 82 year old female with HTN, cardiomyopathy admitted after syncopal event, orthostatic hypotension likely vasovagal event. MRI Brain: 1. No acute or early subacute ischemic infarction or intracranial hemorrhage. 2. Moderate chronic microvascular ischemic changes of the deep white matter and moderate central cerebral and cerebellar volume loss. Carotid Duplex: negative. -Continue IVF, being monitored on tele r/o C. Diff continue current management, no further neurology lamb recommended at this time Problems: Consultation Date/Type/Reason Admit Date/Time Apr 06, 2017 at 15:27 Date of Consultation: Apr 08, 2017 Type of Consultation: Neurology Reason for Consultation eval for syncope Referring Provider: ARAM PAZ NP Hx of Present Illness 82 year old female with history of HTN, cardiomyopathy presents after near syncopal event. She was at a restaurant, went to the restroom and after using the bathroom reportedly also had bowel movement with diarrhea began to feel weak everywhere went to the door and became very lightheaded. She reportedly collapsed was unable to recall events afterwards no seizures described, no tongue biting no generalized shaking or urinary or bowel incontinence. BP on arrival of paramedics 50/20, no hx of prior events. She is back to baseline. Eyes: no complaints ENT: no complaints Respiratory: no complaints Cardiovascular: orthopenea Gastrointestinal: diarrhea Genitourinary: no complaints Musculoskeletal: no complaints Skin: skin lesions Neurologic: dizziness Lymphatic: no complaints Psychological: nl mood/affect, no complaints Immunologic: urticaria Past Medical History Medical History: hypertension, hypothyroid, other (reported cardiomyopathy, dermatitis) Past Surgical History Past Surgical Hx: other (Right hip replacement, back surgery) Social History Alcohol Use: none Smoking Status: Never smoker Drug Use: none Exam/Review of Systems Vital Signs Vitals Vital Signs Date Time Temp Pulse Resp B/P Pulse Ox O2 Delivery O2 Flow Rate FiO2 04/08/17 15:03 97.8 83 18 115/69 97 04/08/17 08:00 Nasal Cannula 04/08/17 06:07 2.0 Intake and Output 04/07/17 04/07/17 04/08/17 15:00 23:00 07:00 Intake Total 580 ml Output Total 1650 ml Balance -1070 ml Exam Neurological: [employer] II-XII intact, DTR's symmetric, nl mental status, nl speech, nl strength Results Result Diagram: 04/08/17 0550 04/08/17 0526 Results 24 hrs Laboratory Tests Test 04/08/17 05:26 04/08/17 05:50 Sodium Level 140 Potassium Level 3.6 Chloride Level 111 H Carbon Dioxide Level 24 Anion Gap 9 Blood Urea Nitrogen 11 Creatinine 0.89 Glucose Level 83 Calcium Level 7.6 L Phosphorus Level 2.7 Magnesium Level 2.3 Creatine Kinase 791 H Creatine Kinase Index 0.3 Creatinine Kinase MB (Mass) 2.23 Troponin I 0.024 White Blood Count 10.3 Red Blood Count 3.00 L Hemoglobin 9.1 L Hematocrit 28.6 L Mean Corpuscular Volume 95.3 Mean Corpuscular Hemoglobin 30.3 Mean Corpuscular Hemoglobin Concent 31.8 L Red Cell Distribution Width 14.8 H Platelet Count 190 Mean Platelet Volume 9.5 Neutrophils % 84.9 H Lymphocytes % 9.1 L Monocytes % 4.1 Eosinophils % 1.2 Basophils % 0.3 Nucleated Red Blood Cells % 0.0 Neutrophils # 8.7 H Lymphocytes # 0.9 Monocytes # 0.4 Eosinophils # 0.1 Basophils # 0.0 Nucleated Red Blood Cells # 0.0 Medications Medications Current Medications Ondansetron HCl (Zofran Inj) 4 mg Q6H PRN IV NAUSEA AND/OR VOMITING; Start 04/06/17 at 16:30 Acetaminophen (Tylenol Tab) 650 mg Q6H PRN PO PAIN LEVEL 1-3 OR FEVER; Start 04/06/17 at 16:30 Acetaminophen/ Hydrocodone Bitart ([place] (5/325)) 1 tab Q6H PRN PO PAIN LEVEL 4 -6; Start 04/06/17 at 16:30 Lisinopril (Zestril) 5 mg DAILY PO Last administered on 04/07/17 08:53; Admin Dose 5 MG; Start 04/07/17 at 09:00; Status Future Hold Diltiazem HCl 10 mg 10 mg Q2H PRN IV HR>160; Start 04/06/17 at 17:00 Metronidazole (Flagyl 500 Mg (Pmx)) 100 ml @ 100 mls/hr Q8 IVPB Last administered on 04/08/17 13:13; Admin Dose 100 MLS/HR; Start 04/07/17 at 14:00 Gabapentin 300 mg 300 mg Q12 PRN PO Itching Last administered on 04/08/17t 08: 42; Admin Dose 300 MG; Start 04/07/17 at 18:00 Ciprofloxacin/ Dextrose (Cipro Ivpb) 100 ml @ 100 mls/hr Q12 IVPB ; Start 04/08 at 21:00 VERONICA PLAZA MD Apr 08, 2017 15:30
[2017-04-08] MEDS: CIPROFLOXACIN 200 MG/D5W IVPB 100 ML IVPB SCH (20:51)
[2017-04-08] MEDS: RANITIDINE 150 MG TAB PO SCH (20:51)
[2017-04-08] MEDS: BETAMETHASONE TOP SCH (20:53)
[2017-04-09] VITALS (12 sets, daily range): BP systolic 116–148; BP diastolic 58–76; PULSE 60–91; RESP 17–18
[2017-04-09 05:22] LABS: BASOPHILS % 0.2 % (0.0-2.0); EOSINOPHILS # 0.4 10^3/ul (0.0-0.5); EOSINOPHILS % 4.5 % (0.0-7.0); HEMATOCRIT 29.3 % (37.0-47.0); HEMOGLOBIN 9.3 g/dl (12.0-16.0); LYMPHOCYTES # 0.9 10^3/ul (0.8-2.9); LYMPHOCYTES % 10.6 % (15.0-51.0); MEAN CORPUSCULAR HEMOGLOBIN 30.8 pg (29.0-33.0); MEAN CORPUSCULAR HGB CONC 31.7 g/dl (32.0-37.0); MEAN PLATELET VOLUME 9.3 fl (7.4-10.4); MONOCYTE # 0.4 10^3/ul (0.3-0.9); MONOCYTES % 4.7 % (0.0-11.0); NEUTROPHIL # 6.6 10^3/ul (1.6-7.5); NEUTROPHILS % 79.4 % (39.0-77.0); PLATELET COUNT 193 10^3/UL (140-415); RED BLOOD COUNT 3.02 10^6/ul (4.20-5.40); RED CELL DISTRIBUTION WIDTH 14.5 % (11.5-14.5); WHITE BLOOD COUNT 8.3 10^3/ul (4.8-10.8)
[2017-04-09 05:47] LABS: CALCIUM 7.9 mg/dl (8.4-10.2); CREATININE 0.81 mg/dl (0.44-1.00); POTASSIUM 4.2 mmol/L (3.5-5.1)
[2017-04-09 05:55] LABS: MAGNESIUM 1.9 mg/dl (1.7-2.5); PHOSPHORUS 2.4 mg/dl (2.5-4.9)
[2017-04-09] MEDS: metroNIDAZOLE 500 MG/NS (PMX) 100 ML IVPB SCH ×2 (05:57→14:47)
[2017-04-09] MEDS: LEVOTHYROXINE 100 MCG TAB PO SCH (06:33)
[2017-04-09] MEDS: LORATADINE 10 MG TAB PO SCH (08:58)
[2017-04-09] MEDS: CIPROFLOXACIN 200 MG/D5W IVPB 100 ML IVPB SCH ×2 (08:58→21:40)
[2017-04-09] MEDS: RANITIDINE 150 MG TAB PO SCH ×2 (08:58→21:40)
[2017-04-09] MEDS: GABAPENTIN 300 MG CAP PO PRN ×2 (08:58→21:40)
[2017-04-09] MEDS: BETAMETHASONE TOP SCH ×2 (08:59→21:42)
--- NOTE | 2017-04-09 10:36 | PN ---
Date/Time of Note Date/Time of Note DATE: 04/09/17 TIME: 10:35 Assessment/Plan VTE Prophylaxis VTE Prophylaxis Intervention: other Lines/Catheters [facility] Saline Lock Urinary Cath still in place: Yes Reason Cath still needed: urinary retention Assessment/Plan Chief Complaint/Hosp Course Renal follow up d/w Dr Best no significant event overnight no nausea, fever, chills, hematuria, new rash REVIEW OF SYSTEMS: As reviewed in HPI and otherwise negative. PHYSICAL EXAMINATION: HEENT: Normocephalic. NECK: Supple. HEART: Regular rate. LUNGS: Show diminished breath sounds at the base. ABDOMEN: Soft and nontender to palpation, no rebound or guarding. EXTREMITIES: Negative for cyanosis, clubbing, or edema. SKIN: No rashes. MUSCULOSKELETAL: No joint effusion. ASSESSMENT AND PLAN: This is an 82-year-old female: 1. acute kidney injury, etiology may be secondary to hemodynamics due to gastrointestinal loss or possible recent diuretic therapy. The plan at this point is to continue the current treatment plan and continue IV antibiotics. We will continue supportive care. 2. Near syncope. Continue medical management and follow with cardiology. 3. History of congestive heart failure. Continue to monitor closely. will follow prn thanks Problems: Exam/Review of Systems Vital Signs Vitals Vital Signs Date Time Temp Pulse Resp B/P Pulse Ox O2 Delivery O2 Flow Rate FiO2 04/09/17 08:38 75 04/09/17 07:52 98.6 18 125/58 97 04/09/17 06:04 2.0 04/08/17 23:42 Nasal Cannula Intake and Output 04/08/17 04/08/17 04/09/17 15:00 23:00 07:00 Intake Total 750 ml 100 ml 340 ml Output Total 1000 ml 850 ml Balance -250 ml 100 ml -510 ml Results Result Diagram: 04/09/17 0502 04/09/17 0502 Results 24 hrs Laboratory Tests Test 04/09/17 05:02 White Blood Count 8.3 Red Blood Count 3.02 L Hemoglobin 9.3 L Hematocrit 29.3 L Mean Corpuscular Volume 97.0 Mean Corpuscular Hemoglobin 30.8 Mean Corpuscular Hemoglobin Concent 31.7 L Red Cell Distribution Width 14.5 Platelet Count 193 Mean Platelet Volume 9.3 Neutrophils % 79.4 H Lymphocytes % 10.6 L Monocytes % 4.7 Eosinophils % 4.5 Basophils % 0.2 Nucleated Red Blood Cells % 0.0 Neutrophils # 6.6 Lymphocytes # 0.9 Monocytes # 0.4 Eosinophils # 0.4 Basophils # 0.0 Nucleated Red Blood Cells # 0.0 Sodium Level 139 Potassium Level 4.2 Chloride Level 109 Carbon Dioxide Level 26 Anion Gap 8 Blood Urea Nitrogen 10 Creatinine 0.81 Glucose Level 89 Calcium Level 7.9 L Phosphorus Level 2.4 L Magnesium Level 1.9 Medications Medications Current Medications Ondansetron HCl (Zofran Inj) 4 mg Q6H PRN IV NAUSEA AND/OR VOMITING; Start 04/06/17 at 16:30 Acetaminophen (Tylenol Tab) 650 mg Q6H PRN PO PAIN LEVEL 1-3 OR FEVER; Start 04/06/17 at 16:30 Acetaminophen/ Hydrocodone Bitart ([place] (5/325)) 1 tab Q6H PRN PO PAIN LEVEL 4 -6; Start 04/06/17 at 16:30 Lisinopril (Zestril) 5 mg DAILY PO Last administered on 04/07/17 08:53; Admin Dose 5 MG; Start 04/07/17 at 09:00; Status Future Hold Diltiazem HCl 10 mg 10 mg Q2H PRN IV HR>160; Start 04/06/17 at 17:00 Metronidazole (Flagyl 500 Mg (Pmx)) 100 ml @ 100 mls/hr Q8 IVPB Last administered on 04/09/17 05:57; Admin Dose 100 MLS/HR; Start 04/07/17 at 14:00 Gabapentin 300 mg 300 mg Q12 PRN PO Itching Last administered on 04/09/17 08: 58; Admin Dose 300 MG; Start 04/07/17 at 18:00 Ciprofloxacin/ Dextrose (Cipro Ivpb) 100 ml @ 100 mls/hr Q12 IVPB Last administered on 04/09/17 08:58; Admin Dose 100 MLS/HR; Start 04/08/17 at 21:00 Loratadine (Claritin) 10 mg DAILY PO Last administered on 04/09/17 08:58; Admin Dose 10 MG; Start 04/09/17 at 09:00 Ranitidine HCl (Zantac) 150 mg BID PO Last administered on 04/09/17 08:58; Admin Dose 150 MG; Start 04/08/17 at 21:00 Betamethasone Dipropion Augmented (Diprolene Af 0.05% Cr) 1 applic BID TOP ; Start 04/08/17 at 21:00 JOSEPHINE ROSA DO Apr 09, 2017 10:36
--- NOTE | 2017-04-09 13:40 | PN ---
Date/Time of Note Date/Time of Note DATE: 04/09/17 TIME: 13:39 Assessment/Plan VTE Prophylaxis VTE Prophylaxis Intervention: SCD's Lines/Catheters IV C[facility]ter Type [facility]from [facility] Saline Lock Urinary Cath still in place: Yes Reason Cath still needed: other (indicate) Assessment/Plan Chief Complaint/Hosp Course 1. Near syncope. Most probably from underlying vasovagal response since the patient had multiple episodes of diarrhea. Brain CT scan and brain MRI negative for any acute findings. Carotid Doppler study negative for any hemodynamically significant stenosis. 2D echocardiogram showing ejection fraction of 45%. S/P neurology evaluation. No further neurologic work-up necessary as per the neurologist. 2. Paroxysmal atrial tachycardia and frequent PVCs. Cardiology following. Keep magnesium and potassium at optimal levels. 3. Diarrhea. Etiology unclear. The patient will be ruled out for infectious causes. CT evidence of colitis. We will continue the patient on antibiotics. Stool studies negative so far. Obtain Gastroenterology consult. 4. Essential hypertension. Resume antihypertensives as per cardiology. 5. Hypothyroidism. Continue Synthroid. 6. Acute nonoliguric kidney injury. Resolved. Etiology could be hemodynamics along with the use of nephrotoxic medications. Renal ultrasound showing evidence of chronic kidney disease. 7. Cardiomyopathy with ejection fraction of 45%. Patient was on RONY inhibitors. This was put on hold because of worsening renal function. Medications to be resumed as per Cardiology. 8. Pre-diabetes. Hemoglobin A1c of 6.1. Will monitor random blood glucose levels. 9. Transient hypoxic episode. Resolved. Etiology unclear. Chest CTA negative for any pulmonary embolism. 10. Rhabdomyolysis. Etiology unclear. Will monitor. Gentle hydration. Improving. 11. Chronic dermatitis. The patient follows up with outpatient dermatology for the same. Continue home medications. 12. Fluids, electrolytes, and nutrition. Regular diet. 13. DVT prophylaxis. Bilateral sequential compression devices. 14. Plan. Continue antimicrobials. Continue physical therapy. Obtain Gastroenterology evaluation. Case discussed with Dr. Carbone. Problems: Subjective 24 Hr Interval Summary Free Text/Dictation Denies any complaints. Exam/Review of Systems Vital Signs Vitals Vital Signs Date Time Temp Pulse Resp B/P Pulse Ox O2 Delivery O2 Flow Rate FiO2 04/09/17 12:17 60 04/09/17 11:25 97.8 18 116/65 97 04/09/17 08:00 Nasal Cannula 2.0 Intake and Output 04/08/17 04/08/17 04/09/17 15:00 23:00 07:00 Intake Total 750 ml 100 ml 340 ml Output Total 1000 ml 850 ml Balance -250 ml 100 ml -510 ml Exam General: Thin, frail looking 82 year-old female lying in bed in no apparent distress. HEENT: Normocephalic, atraumatic. Eyes: Anicteric sclerae, conjunctivae clear. ENT: Nasal septum midline, oral mucosa moist. Neck supple, no JVD noticed. Respiratory: Bilaterally diminished breath sounds. No use of accessory muscles of respiration. No adventitious breath sounds. Cardiovascular: S1, S2 heard. Regular rate and rhythm. Abdomen: Soft, nontender, and nondistended. Bowel sounds positive in all 4 quadrants. Genitourinary: Deferred. Extremities: No cyanosis no edema. Peripheral pulses palpable. Neurologic: Cranial nerves II through XII grossly intact. The patient is awake, alert, and oriented. Results Result Diagram: 04/09/17 0502 04/09/17 0502 Results 24 hrs Laboratory Tests Test 04/09/17 05:02 White Blood Count 8.3 Red Blood Count 3.02 L Hemoglobin 9.3 L Hematocrit 29.3 L Mean Corpuscular Volume 97.0 Mean Corpuscular Hemoglobin 30.8 Mean Corpuscular Hemoglobin Concent 31.7 L Red Cell Distribution Width 14.5 Platelet Count 193 Mean Platelet Volume 9.3 Neutrophils % 79.4 H Lymphocytes % 10.6 L Monocytes % 4.7 Eosinophils % 4.5 Basophils % 0.2 Nucleated Red Blood Cells % 0.0 Neutrophils # 6.6 Lymphocytes # 0.9 Monocytes # 0.4 Eosinophils # 0.4 Basophils # 0.0 Nucleated Red Blood Cells # 0.0 Sodium Level 139 Potassium Level 4.2 Chloride Level 109 Carbon Dioxide Level 26 Anion Gap 8 Blood Urea Nitrogen 10 Creatinine 0.81 Glucose Level 89 Calcium Level 7.9 L Phosphorus Level 2.4 L Magnesium Level 1.9 Medications Medications Current Medications Ondansetron HCl (Zofran Inj) 4 mg Q6H PRN IV NAUSEA AND/OR VOMITING; Start 04/06/17 at 16:30 Acetaminophen (Tylenol Tab) 650 mg Q6H PRN PO PAIN LEVEL 1-3 OR FEVER; Start 04/06/17 at 16:30 Acetaminophen/ Hydrocodone Bitart ([place] (5/325)) 1 tab Q6H PRN PO PAIN LEVEL 4 -6; Start 04/06/17 at 16:30 Lisinopril (Zestril) 5 mg DAILY PO Last administered on 04/07/17 08:53; Admin Dose 5 MG; Start 04/07/17 at 09:00; Status Future Hold Diltiazem HCl 10 mg 10 mg Q2H PRN IV HR>160; Start 04/06/17 at 17:00 Metronidazole (Flagyl 500 Mg (Pmx)) 100 ml @ 100 mls/hr Q8 IVPB Last administered on 04/09/17 05:57; Admin Dose 100 MLS/HR; Start 04/07/17 at 14:00 Gabapentin 300 mg 300 mg Q12 PRN PO Itching Last administered on 04/09/17 08: 58; Admin Dose 300 MG; Start 04/07/17 at 18:00 Ciprofloxacin/ Dextrose (Cipro Ivpb) 100 ml @ 100 mls/hr Q12 IVPB Last administered on 04/09/17 08:58; Admin Dose 100 MLS/HR; Start 04/08/17 at 21:00 Loratadine (Claritin) 10 mg DAILY PO Last administered on 04/09/17 08:58; Admin Dose 10 MG; Start 04/09/17 at 09:00 Ranitidine HCl (Zantac) 150 mg BID PO Last administered on 04/09/17 08:58; Admin Dose 150 MG; Start 04/08/17 at 21:00 Betamethasone Dipropion Augmented (Diprolene Af 0.05% Cr) 1 applic BID TOP ; Start 04/08/17 at 21:00 ARAM PAZ NP Apr 09, 2017 13:40
--- NOTE | 2017-04-09 15:14 | CONS ---
Date/Time of Note Date/Time of Note DATE: 04/09/17 TIME: 15:03 Assessment/Plan Assessment/Plan Additional Assessment/Plan Assessment: Significant diarrhea/abnormal CT of the abdomen with thickening of the colon Rule out colitis versus others Near syncopal episode Paroxysmal atrial tachycardia with frequent PVCs/cardiology involved Hypertension Hypothyroidism Acute renal failure History of prediabetes Mild rhabdomyolysis Chronic dermatitis Plan: We will proceed with colonoscopy. The procedure was explained in detail to the patient including risks, benefits and alternatives. Agreeable to proceed. Consultation Date/Type/Reason Admit Date/Time Apr 06, 2017 at 15:27 Date of Consultation: Apr 09, 2017 Type of Consultation: GI Reason for Consultation Diarrhea/abnormal CT with thickened colon Hx of Present Illness 82-year-old very pleasant female who was hospitalized after suffering a near syncopal episode. The patient describes it as following a bowel movement which she felt was relatively normal however since her hospitalization the patient has had persistent diarrhea. A CT of the has been obtained that showed significant thickening of the colon more so in the left colon. The patient denies overt gastrointestinal bleeding. There is no fever, chills or diaphoresis. The patient had a previous colonoscopy around 2009 which was negative. She denies abdominal pain, abdominal distention, she does experience changes in bowel habits but this is been present most of her life. She has no documented significant weight loss. The patient will be evaluated with colonoscopy. The procedure was explained to the patient including risks, benefits and alternatives. She is agreeable to proceed Review of Systems: Gastrointestinal and liver: [As noted in HPI] [positive for: Diarrhea, changes in bowel habits] [Negative for: Anorexia, dysphagia, odynophagia, pyrosis, regurgitation, nausea, vomiting, early satiety, bloating, abdominal pain, food intolerance, constipation, laxative use, hematemesis, melena, hematochezia and rectal symptoms, incontinence, jaundice.] Eyes: no complaints ENT: no complaints Respiratory: no complaints Cardiovascular: orthopenea Genitourinary: no complaints Musculoskeletal: no complaints Skin: skin lesions Neurologic: dizziness Lymphatic: no complaints Psychological: no complaints Immunologic: urticaria Past Medical History Medical History: hypertension, hypothyroid, other (reported cardiomyopathy, dermatitis) Past Surgical History Past Surgical Hx: other (Right hip replacement, back surgery) Family History Significant Family History: no pertinent family hx Social History Alcohol Use: none Smoking Status: Never smoker Drug Use: none Exam/Review of Systems Vital Signs Vitals Vital Signs Date Time Temp Pulse Resp B/P Pulse Ox O2 Delivery O2 Flow Rate FiO2 04/09/17 12:17 60 04/09/17 11:25 97.8 18 116/65 97 04/09/17 08:00 Nasal Cannula 2.0 Intake and Output 04/08/17 04/08/17 04/09/17 15:00 23:00 07:00 Intake Total 750 ml 100 ml 340 ml Output Total 1000 ml 850 ml Balance -250 ml 100 ml -510 ml Exam PHYSICAL EXAMINATION: GENERAL: Well developed, well nourished, somewhat frail, alert & oriented x 3, in no acute distress SKIN: Few petechial lesions in both arms. Otherwise no lesions, no stigmata chronic liver disease. LYMPHATIC: No palpable lymphadenopathy. HEAD: Normocephalic, atraumatic, no tenderness. EYES: Pupils equal reactive to light and accommodation, full extraocular movements, sclera clear, non-icteric, no discharge. EARS/NOSE AND THROAT: Ears normal, nose normal, oropharynx normal, oral membranes well hydrated without lesions. NECK: Supple, no masses, thyroid normal, JVP within normal limits, carotids normal without bruits. CHEST: Inspection within normal limits. CARDIOVASCULAR: Heart: Regular rate and rhythm, no murmurs, gallops or rubs. Peripheral pulses present within normal limits, no cyanosis, clubbing or edemas. No pulsatile abdominal mass RESPIRATORY: Lungs clear to auscultation and percussion, no wheezing, no rubs GASTROINTESTINAL AND LIVER: Abdomen: Soft, non tenderness, mildly distended, no hernias, no masses, no organomegaly, no ascites, no guarding, no rebound tenderness, normoactive bowel sounds. Rectal: Deferred. GENITOURINARY: [Female genitalia within normal limits.] EXTREMITIES: No cyanosis, clubbing or edema. Results Result Diagram: 04/09/17 0502 04/09/17 0502 Results 24 hrs Laboratory Tests Test 04/09/17 05:02 White Blood Count 8.3 Red Blood Count 3.02 L Hemoglobin 9.3 L Hematocrit 29.3 L Mean Corpuscular Volume 97.0 Mean Corpuscular Hemoglobin 30.8 Mean Corpuscular Hemoglobin Concent 31.7 L Red Cell Distribution Width 14.5 Platelet Count 193 Mean Platelet Volume 9.3 Neutrophils % 79.4 H Lymphocytes % 10.6 L Monocytes % 4.7 Eosinophils % 4.5 Basophils % 0.2 Nucleated Red Blood Cells % 0.0 Neutrophils # 6.6 Lymphocytes # 0.9 Monocytes # 0.4 Eosinophils # 0.4 Basophils # 0.0 Nucleated Red Blood Cells # 0.0 Sodium Level 139 Potassium Level 4.2 Chloride Level 109 Carbon Dioxide Level 26 Anion Gap 8 Blood Urea Nitrogen 10 Creatinine 0.81 Glucose Level 89 Calcium Level 7.9 L Phosphorus Level 2.4 L Magnesium Level 1.9 Medications Medications Current Medications Ondansetron HCl (Zofran Inj) 4 mg Q6H PRN IV NAUSEA AND/OR VOMITING; Start 04/06/17 at 16:30 Acetaminophen (Tylenol Tab) 650 mg Q6H PRN PO PAIN LEVEL 1-3 OR FEVER; Start 04/06/17 at 16:30 Acetaminophen/ Hydrocodone Bitart ([place] (5/325)) 1 tab Q6H PRN PO PAIN LEVEL 4 -6; Start 04/06/17 at 16:30 Lisinopril (Zestril) 5 mg DAILY PO Last administered on 04/07/17 08:53; Admin Dose 5 MG; Start 04/07/17 at 09:00; Status Future Hold Diltiazem HCl 10 mg 10 mg Q2H PRN IV HR>160; Start 04/06/17 at 17:00 Metronidazole (Flagyl 500 Mg (Pmx)) 100 ml @ 100 mls/hr Q8 IVPB Last administered on 04/09/17 14:47; Admin Dose 100 MLS/HR; Start 04/07/17 at 14:00 Gabapentin 300 mg 300 mg Q12 PRN PO Itching Last administered on 04/09/17 08: 58; Admin Dose 300 MG; Start 04/07/17 at 18:00 Ciprofloxacin/ Dextrose (Cipro Ivpb) 100 ml @ 100 mls/hr Q12 IVPB Last administered on 04/09/17 08:58; Admin Dose 100 MLS/HR; Start 04/08/17 at 21:00 Loratadine (Claritin) 10 mg DAILY PO Last administered on 04/09/17 08:58; Admin Dose 10 MG; Start 04/09/17 at 09:00 Ranitidine HCl (Zantac) 150 mg BID PO Last administered on 04/09/17t 08:58; Admin Dose 150 MG; Start 04/08/17 at 21:00 Betamethasone Dipropion Augmented (Diprolene Af 0.05% Cr) 1 applic BID TOP ; Start 04/08/17 at 21:00 KALEE RAUSCH MD Apr 09, 2017 15:14
[2017-04-09] MEDS ORDERED: BISACODYL (EC) 5 MG TAB PO ONE (16:30)
--- NOTE | 2017-04-09 17:12 | CONS ---
Date/Time of Note Date/Time of Note DATE: 04/09/17 TIME: 17:09 Assessment/Plan Assessment/Plan Chief Complaint/Hosp Course Presyncope: Likely vasovagal/orthostatic episode secondary to dehydration based on history and presentation. Hypotension: secondary to dehydration. Resolved Diarrhea/colitis: ?viral gastroenteritis. Ruled out for c diff. Plan is for colonoscopy Cardiomyopathy: EF 25% by echo previously, 52% by MRI. On echo here mild dysfunction ~45% in some views. Compensated by exam SVT: few beats of possible AT and has frequent PACs. Would benefit from low dose BB but will wait until after colo HTN -ok to proceed with colonoscopy -will likely try BB after -monitor on tele for now Problems: Consultation Date/Type/Reason Admit Date/Time Apr 06, 2017 at 15:27 Initial Consult Date 04/07/17 Type of Consultation: Cardiology Referring Provider: ARAM PAZ NP 24 HR Interval Summary Free Text/Dictation Plan is for colonoscopy tomorrow to evaluate colitis. Some PACs again but no SVT by tele. Exam/Review of Systems Vital Signs Vitals Vital Signs Date Time Temp Pulse Resp B/P Pulse Ox O2 Delivery O2 Flow Rate FiO2 04/09/17 16:21 91 04/09/17 15:38 98.2 18 145/65 95 04/09/17 08:00 Nasal Cannula 2.0 Intake and Output 04/08/17 04/08/17 04/09/17 15:00 23:00 07:00 Intake Total 750 ml 100 ml 340 ml Output Total 1000 ml 850 ml Balance -250 ml 100 ml -510 ml Exam Constitutional: alert, oriented Psych: nl mood/affect, no complaints Head: atraumatic, normocephalic Neck: supple, No jvd Respiratory: clear to auscultation, No crackles/rales Cardiovascular: regular rate and rhythm, No edema, No systolic murmur Gastrointestinal: non-tender, soft Neurological: nl mental status, nl speech Results Result Diagram: 04/09/17 0502 04/09/17 0502 Results 24 hrs Laboratory Tests Test 04/09/17 05:02 White Blood Count 8.3 Red Blood Count 3.02 L Hemoglobin 9.3 L Hematocrit 29.3 L Mean Corpuscular Volume 97.0 Mean Corpuscular Hemoglobin 30.8 Mean Corpuscular Hemoglobin Concent 31.7 L Red Cell Distribution Width 14.5 Platelet Count 193 Mean Platelet Volume 9.3 Neutrophils % 79.4 H Lymphocytes % 10.6 L Monocytes % 4.7 Eosinophils % 4.5 Basophils % 0.2 Nucleated Red Blood Cells % 0.0 Neutrophils # 6.6 Lymphocytes # 0.9 Monocytes # 0.4 Eosinophils # 0.4 Basophils # 0.0 Nucleated Red Blood Cells # 0.0 Sodium Level 139 Potassium Level 4.2 Chloride Level 109 Carbon Dioxide Level 26 Anion Gap 8 Blood Urea Nitrogen 10 Creatinine 0.81 Glucose Level 89 Calcium Level 7.9 L Phosphorus Level 2.4 L Magnesium Level 1.9 Medications Medications Current Medications Ondansetron HCl (Zofran Inj) 4 mg Q6H PRN IV NAUSEA AND/OR VOMITING; Start 04/06/17 at 16:30 Acetaminophen (Tylenol Tab) 650 mg Q6H PRN PO PAIN LEVEL 1-3 OR FEVER; Start 04/06/17 at 16:30 Acetaminophen/ Hydrocodone Bitart ([place] (5/325)) 1 tab Q6H PRN PO PAIN LEVEL 4 -6; Start 04/06/17 at 16:30 Lisinopril (Zestril) 5 mg DAILY PO Last administered on 04/07/17 08:53; Admin Dose 5 MG; Start 04/07/17 at 09:00; Status Future Hold Diltiazem HCl 10 mg 10 mg Q2H PRN IV HR>160; Start 04/06/17 at 17:00 Metronidazole (Flagyl 500 Mg (Pmx)) 100 ml @ 100 mls/hr Q8 IVPB Last administered on 04/09/17 14:47; Admin Dose 100 MLS/HR; Start 04/07/17 at 14:00 Gabapentin 300 mg 300 mg Q12 PRN PO Itching Last administered on 04/09/17 08: 58; Admin Dose 300 MG; Start 04/07/17 at 18:00 Ciprofloxacin/ Dextrose (Cipro Ivpb) 100 ml @ 100 mls/hr Q12 IVPB Last administered on 04/09/17 08:58; Admin Dose 100 MLS/HR; Start 04/08/17 at 21:00 Loratadine (Claritin) 10 mg DAILY PO Last administered on 04/09/17 08:58; Admin Dose 10 MG; Start 04/09/17 at 09:00 Ranitidine HCl (Zantac) 150 mg BID PO Last administered on 04/09/17t 08:58; Admin Dose 150 MG; Start 04/08/17 at 21:00 Betamethasone Dipropion Augmented (Diprolene Af 0.05% Cr) 1 applic BID TOP ; Start 04/08/17 at 21:00 Magnesium Citrate (Citroma) 300 ml ONCE ONCE PO ; Start 04/09/17 at 17:30; Stop 04/09/17 at 17:31 Polyethylene Glycol (Miralax) 119 gm ONCE ONCE PO ; Start 04/09/17 at 18:30; Stop 04/09/17 at 18:31 BRI SORIANO Apr 09, 2017 17:12
[2017-04-09] MEDS ORDERED: MAGNESIUM CITRATE 300 ML BTL PO ONE (17:30)
[2017-04-09] MEDS ORDERED: POLYETHYLENE GLYCOL 3350 119 GM POWDER PO ONE (18:30)
[2017-04-10] VITALS (19 sets, daily range): BP systolic 113–157; BP diastolic 44–99; PULSE 76–92; RESP 16–22
[2017-04-10] MEDS: metroNIDAZOLE 500 MG/NS (PMX) 100 ML IVPB SCH ×4 (00:03→22:01)
[2017-04-10 05:53] LABS: BASOPHILS % 0.5 % (0.0-2.0); EOSINOPHILS # 0.4 10^3/ul (0.0-0.5); EOSINOPHILS % 4.7 % (0.0-7.0); HEMOGLOBIN 11.1 g/dl (12.0-16.0); LYMPHOCYTES % 12.9 % (15.0-51.0); MEAN CORPUSCULAR HEMOGLOBIN 30.6 pg (29.0-33.0); MEAN CORPUSCULAR HGB CONC 31.7 g/dl (32.0-37.0); MEAN CORPUSCULAR VOLUME 96.4 fl (82.0-101.0); MEAN PLATELET VOLUME 9.4 fl (7.4-10.4); MONOCYTE # 0.7 10^3/ul (0.3-0.9); NEUTROPHIL # 5.4 10^3/ul (1.6-7.5); NEUTROPHILS % 72.5 % (39.0-77.0); PLATELET COUNT 258 10^3/UL (140-415); RED BLOOD COUNT 3.63 10^6/ul (4.20-5.40); RED CELL DISTRIBUTION WIDTH 14.5 % (11.5-14.5); WHITE BLOOD COUNT 7.4 10^3/ul (4.8-10.8)
[2017-04-10] MEDS ORDERED: POLYETHYLENE GLYCOL 3350 119 GM POWDER PO ONE (06:00)
[2017-04-10 06:15] LABS: MAGNESIUM 2.1 mg/dl (1.7-2.5); PHOSPHORUS 2.7 mg/dl (2.5-4.9)
[2017-04-10 06:31] LABS: ALBUMIN 2.9 g/dl (3.3-4.9); ALBUMIN/GLOBULIN RATIO 0.87; BILIRUBIN,INDIRECT 0.2 mg/dl (0-1.1); BILIRUBIN,TOTAL 0.2 mg/dl (0.2-1.3); CALCIUM 8.7 mg/dl (8.4-10.2); CREATININE 0.82 mg/dl (0.44-1.00); POTASSIUM 3.9 mmol/L (3.5-5.1); TOTAL PROTEIN 6.2 g/dl (6.1-8.1)
[2017-04-10] MEDS: LEVOTHYROXINE 100 MCG TAB PO SCH (07:15)
[2017-04-10] MEDS ORDERED: BISACODYL (EC) 5 MG TAB PO ONE (08:00)
[2017-04-10] MEDS: GABAPENTIN 300 MG CAP PO PRN ×2 (09:28→22:24)
[2017-04-10] MEDS: RANITIDINE 150 MG TAB PO SCH ×2 (09:28→22:00)
[2017-04-10] MEDS: LORATADINE 10 MG TAB PO SCH (09:28)
[2017-04-10] MEDS: CIPROFLOXACIN 200 MG/D5W IVPB 100 ML IVPB SCH ×2 (09:29→22:00)
[2017-04-10] MEDS: BETAMETHASONE TOP SCH ×2 (09:29→21:00)
--- NOTE | 2017-04-10 13:04 | CONS ---
Date/Time of Note Date/Time of Note DATE: 04/10/17 TIME: 13:01 Assessment/Plan Assessment/Plan Chief Complaint/Hosp Course Presyncope: Likely vasovagal/orthostatic episode secondary to dehydration based on history and presentation. Hypotension: secondary to dehydration. Resolved Diarrhea/colitis: ?viral gastroenteritis. Ruled out for c diff. Plan is for colonoscopy today Cardiomyopathy: EF 25% by echo previously, 52% by MRI. On echo here mild dysfunction ~45% in some views. Compensated by exam SVT: few beats of possible AT and has frequent PACs. Would benefit from low dose BB but will wait until after colo HTN -ok to proceed with colonoscopy -bisoprolol 2.5mg starting tomorrow -monitor on tele Problems: Consultation Date/Type/Reason Admit Date/Time Apr 06, 2017 at 15:27 Initial Consult Date 04/07/17 Type of Consultation: Cardiology Referring Provider: ARAM PAZ NP 24 HR Interval Summary Free Text/Dictation very sleepy today as she did not sleep much due to bowel prep last night. Had a few more short runs of AT vs less likely afib. Exam/Review of Systems Vital Signs Vitals Vital Signs Date Time Temp Pulse Resp B/P Pulse Ox O2 Delivery O2 Flow Rate FiO2 04/10/17 12:21 82 04/10/17 11:05 97.7 22 113/63 92 04/10/17 08:00 Nasal Cannula 2.0 04/10/17 01:06 21 Intake and Output 04/09/17 04/09/17 04/10/17 15:00 23:00 07:00 Intake Total 1700 ml Output Total 1700 ml Balance 0 ml Exam Constitutional: alert, oriented Psych: nl mood/affect, no complaints Head: atraumatic, normocephalic Neck: No jvd Respiratory: clear to auscultation, No crackles/rales Cardiovascular: regular rate and rhythm, No edema, No systolic murmur Gastrointestinal: non-tender, soft 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, nl mental status, nl speech, nl strength Results Result Diagram: 04/10/1714 04/10/17513 Results 24 hrs Laboratory Tests Test 04/10/17 05:14 White Blood Count 7.4 Red Blood Count 3.63 #L Hemoglobin 11.1 L Hematocrit 35.0 L Mean Corpuscular Volume 96.4 Mean Corpuscular Hemoglobin 30.6 Mean Corpuscular Hemoglobin Concent 31.7 L Red Cell Distribution Width 14.5 Platelet Count 258 # Mean Platelet Volume 9.4 Neutrophils % 72.5 Lymphocytes % 12.9 L Monocytes % 9.0 Eosinophils % 4.7 Basophils % 0.5 Nucleated Red Blood Cells % 0.0 Neutrophils # 5.4 Lymphocytes # 1.0 Monocytes # 0.7 Eosinophils # 0.4 Basophils # 0.0 Nucleated Red Blood Cells # 0.0 Sodium Level 142 Potassium Level 3.9 Chloride Level 110 Carbon Dioxide Level 28 Anion Gap 8 Blood Urea Nitrogen 10 Creatinine 0.82 Glucose Level 95 Calcium Level 8.7 Phosphorus Level 2.7 Magnesium Level 2.1 Total Bilirubin 0.2 Direct Bilirubin 0.00 Indirect Bilirubin 0.2 Aspartate Amino Transf (AST/SGOT) 40 Alanine Aminotransferase (ALT/SGPT) 33 Alkaline Phosphatase 80 Total Protein 6.2 Albumin 2.9 L Globulin 3.30 H Albumin/Globulin Ratio 0.87 Medications Medications Current Medications Ondansetron HCl (Zofran Inj) 4 mg Q6H PRN IV NAUSEA AND/OR VOMITING; Start 04/06/17 at 16:30 Acetaminophen (Tylenol Tab) 650 mg Q6H PRN PO PAIN LEVEL 1-3 OR FEVER; Start 04/06/17 at 16:30 Acetaminophen/ Hydrocodone Bitart ([place] (5/325)) 1 tab Q6H PRN PO PAIN LEVEL 4 -6; Start 04/06/17 at 16:30 Lisinopril (Zestril) 5 mg DAILY PO Last administered on 04/07/17 08:53; Admin Dose 5 MG; Start 04/07/17 at 09:00; Status Future Hold Diltiazem HCl 10 mg 10 mg Q2H PRN IV HR>160; Start 04/06/17 at 17:00 Metronidazole (Flagyl 500 Mg (Pmx)) 100 ml @ 100 mls/hr Q8 IVPB Last administered on 04/10/17 05:46; Admin Dose 100 MLS/HR; Start 04/07/17 at 14:00 Gabapentin 300 mg 300 mg Q12 PRN PO Itching Last administered on 04/10/17 09: 28; Admin Dose 300 MG; Start 04/07/17 at 18:00 Ciprofloxacin/ Dextrose (Cipro Ivpb) 100 ml @ 100 mls/hr Q12 IVPB Last administered on 04/10/17 09:29; Admin Dose 100 MLS/HR; Start 04/08/17 at 21:00 Loratadine (Claritin) 10 mg DAILY PO Last administered on 04/10/17 09:28; Admin Dose 10 MG; Start 04/09/17 at 09:00 Ranitidine HCl (Zantac) 150 mg BID PO Last administered on 04/10/17 09:28; Admin Dose 150 MG; Start 04/08/17 at 21:00 Betamethasone Dipropion Augmented (Diprolene Af 0.05% Cr) 1 applic BID TOP Last administered on 04/10/17 09:29; Admin Dose 1 APPLIC; Start 04/08/17 at 21: 00 BRI SORIANO Apr 10, 2017 13:04
[2017-04-10 14:36] LABS: MICROALBUMIN 7.4 mg/dL
--- NOTE | 2017-04-10 15:58 | PN ---
Date/Time of Note Date/Time of Note DATE: 04/10/17 TIME: 15:53 Assessment/Plan VTE Prophylaxis VTE Prophylaxis Intervention: SCD's Lines/Catheters IV Catheter Type (from [facility]): Saline Lock Urinary Cath still in place: Yes Assessment/Plan Chief Complaint/Hosp Course Assessment and plan 1. Near syncope. Likely from underlying vasovagal response due to patient having multiple episodes of diarrhea. Patient did have brain CT and MRI was negative for any acute findings. Carotid Doppler was also negative for any hemodynamically significant stenosis. Ejection fraction was seen at 45% per echocardiogram. Patient was seen by neurologist and no further neurologist workup recommended. 2. Paroxysmal atrial tachycardia and frequent PVC. Passenger Coach Driver following. Keep magnesium and potassium levels at optimal levels. 3. Diarrhea. Etiology unknown. CT scan showing some colitis. Continue antibiotics. Stool C. difficile is negative for any C. difficile. GI following. Tentative plan for colonoscopy 4. Essential hypertension. Continue antihypertensives and dyspnea 5. Hypothyroidism. Continue Synthroid 6. Acute nonoliguric kidney disease. Avoid nephrotoxic medications. Renal ultrasound showing evidence of CKD. Monitor renal panel for now. 7. Cardiomyopathy with EF of 45%. Continue on RONY inhibitor. RONY inhibitor on hold due to a renal dysfunction. 8. Prediabetes. A1c seen at 6.1. Monitor for now. 9. Transient hypoxic episode. CTA was negative for any pulmonary embolism. Improved at present. Provide with O2 as needed. 10. Chronic dermatitis. Patient for outpatient dermatology consultation. Disposition plan: Tentative plan for colonoscopy. Will follow up. Discussed plan of care with Dr. Lawson Problems: Subjective 24 Hr Interval Summary Free Text/Dictation Still with reports of diarrhea at this time. Denies any pain on abdomen. Family at bedside. Exam/Review of Systems Vital Signs Vitals Vital Signs Date Time Temp Pulse Resp B/P Pulse Ox O2 Delivery O2 Flow Rate FiO2 04/10/17 15:20 98.2 90 16 152/93 97 04/10/17 08:00 Nasal Cannula 2.0 04/10/17 01:06 21 Intake and Output 04/09/17 04/09/17 04/10/17 15:00 23:00 07:00 Intake Total 1700 ml Output Total 1700 ml Balance 0 ml Exam Constitutional: alert, oriented Head: normocephalic Neck: supple Respiratory: clear to auscultation, normal air movement Cardiovascular: regular rate and rhythm Gastrointestinal: non-tender, soft Musculoskeletal: No nl gait and stance Neurological: STAFF DEVELOPMENT COORDINATOR II-XII intact, nl mental status, nl speech Skin: other (rash left lower extremity ) Results Result Diagram: 04/10/1751304/10/1714 Results 24 hrs Laboratory Tests Test 04/10/17 05:14 White Blood Count 7.4 Red Blood Count 3.63 #L Hemoglobin 11.1 L Hematocrit 35.0 L Mean Corpuscular Volume 96.4 Mean Corpuscular Hemoglobin 30.6 Mean Corpuscular Hemoglobin Concent 31.7 L Red Cell Distribution Width 14.5 Platelet Count 258 # Mean Platelet Volume 9.4 Neutrophils % 72.5 Lymphocytes % 12.9 L Monocytes % 9.0 Eosinophils % 4.7 Basophils % 0.5 Nucleated Red Blood Cells % 0.0 Neutrophils # 5.4 Lymphocytes # 1.0 Monocytes # 0.7 Eosinophils # 0.4 Basophils # 0.0 Nucleated Red Blood Cells # 0.0 Sodium Level 142 Potassium Level 3.9 Chloride Level 110 Carbon Dioxide Level 28 Anion Gap 8 Blood Urea Nitrogen 10 Creatinine 0.82 Glucose Level 95 Calcium Level 8.7 Phosphorus Level 2.7 Magnesium Level 2.1 Total Bilirubin 0.2 Direct Bilirubin 0.00 Indirect Bilirubin 0.2 Aspartate Amino Transf (AST/SGOT) 40 Alanine Aminotransferase (ALT/SGPT) 33 Alkaline Phosphatase 80 Total Protein 6.2 Albumin 2.9 L Globulin 3.30 H Albumin/Globulin Ratio 0.87 Medications Medications Current Medications Ondansetron HCl (Zofran Inj) 4 mg Q6H PRN IV NAUSEA AND/OR VOMITING; Start 04/06/17 at 16:30 Acetaminophen (Tylenol Tab) 650 mg Q6H PRN PO PAIN LEVEL 1-3 OR FEVER; Start 04/06/17 at 16:30 Acetaminophen/ Hydrocodone Bitart ([place] (5/325)) 1 tab Q6H PRN PO PAIN LEVEL 4 -6; Start 04/06/17 at 16:30 Lisinopril (Zestril) 5 mg DAILY PO Last administered on 04/07/17t 08:53; Admin Dose 5 MG; Start 04/07/17 at 09:00; Status Future Hold Diltiazem HCl 10 mg 10 mg Q2H PRN IV HR>160; Start 04/06/17 at 17:00 Metronidazole (Flagyl 500 Mg (Pmx)) 100 ml @ 100 mls/hr Q8 IVPB Last administered on 04/10/17 14:30; Admin Dose 100 MLS/HR; Start 04/07/17 at 14:00 Gabapentin 300 mg 300 mg Q12 PRN PO Itching Last administered on 04/10/17 09: 28; Admin Dose 300 MG; Start 04/07/17 at 18:00 Ciprofloxacin/ Dextrose (Cipro Ivpb) 100 ml @ 100 mls/hr Q12 IVPB Last administered on 04/10/17 09:29; Admin Dose 100 MLS/HR; Start 04/08/17 at 21:00 Loratadine (Claritin) 10 mg DAILY PO Last administered on 04/10/17 09:28; Admin Dose 10 MG; Start 04/09/17 at 09:00 Ranitidine HCl (Zantac) 150 mg BID PO Last administered on 04/10/17 09:28; Admin Dose 150 MG; Start 04/08/17 at 21:00 Betamethasone Dipropion Augmented (Diprolene Af 0.05% Cr) 1 applic BID TOP Last administered on 04/10/17 09:29; Admin Dose 1 APPLIC; Start 04/08/17 at 21: 00 Bisoprolol Fumarate (Zebeta) 2.5 mg DAILY PO ; Start 04/11/17 at 09:00 DENIS ROCKWELL Apr 10, 2017 15:58
[2017-04-10] MEDS ORDERED: PROPOFOL 20 ML ONE (19:50)
--- NOTE | 2017-04-10 20:28 | OPPN ---
Date/Time of Note Date/Time of Note DATE: 04/10/17 TIME: 20:24 Proc Note GI Procedure Date 04/10/17 Pre-procedure Diagnosis * Diarrhea Post-procedure Diagnosis Impression: * Segmental sigmoid and descending colitis with ulceration. Consistent with ischemic bowel. Biopsies obtained * Otherwise normal colonoscopy to cecum * Normal terminal ileum * Moderate-sized internal hemorrhoid Plan: * Review pathology as soon as available * Empiric Trental and mesalamine * CT angiogram abdomen and pelvis to rule out critical lesions amenable to therapeutic intervention * May consider repeating colonoscopy in 8-12 weeks . Procedure Performed: Other (Colonoscopy with biopsies) Surgeon KALEE RAUSCH MD Marketing Assistant Retail Division none Anesthesia Type: MAC Anesthesiologist: HETAL DUNN Tourniquet Time none EBL none Transfusion required none Biopsy 1: Sigmoid colitis/rule out ischemic colitis Grafts/Implants none Tubes/Drains none Complication(s) none Pt Condition post procedure: stable Disposition: PACU Indications: other (Diarrhea) Procedure Description After informed consent, with the patient/relatives understanding the procedure, its indications and potential risks and complications, including but not limited to: Allergic reaction, bleeding, perforation, infection, and after all pertinent questions were answered to the patient's satisfaction, the patient/ relatives signed the witnessed informed consent. Following this, premedication was administered slowly IV push under careful cardiovascular and respiratory monitoring with pulse OXIMETRY, automatic blood pressure, and pvc monitor. Once the sedative effect was achieved, the patient was placed in the left lateral decubitus position, digital rectal examination was performed. The colonoscope was then introduced and advanced under visual control throughout all segments of the colon including: the rectum, sigmoid, descending colon, splenic flexure, transverse colon, hepatic flexure, ascending colon and finally reaching the cecum which was clearly identified by transillumination, finger indentation and the ileocecal valve. Careful examination of the mucosa of the lower gastrointestinal tract both on insertion as well as withdrawal of the instrument disclosed the following findings: PREPARATION QUALITY: , [fair, procedure completed] RECTAL EXAM: The anorectal area was visualized examined and digital rectal examination performed with the following findings: No evidence of perirectal disease, no masses. COLONIC MUCOSA: The mucosa of all segments of the colon was carefully examined and showed the following findings: There is an area of segmental colitis from the distal sigmoid to the proximal descending colon with severe ulceration of the mucosa the location, segmental distribution is consistent with ischemic bowel. Multiple biopsies were obtained. The remainder of the examined mucosa the colon and the terminal ileum appears within normal limits. There is no evidence of other inflammatory changes, diverticular formation, polyps or other neoplasms, vascular malformation, or any other abnormality. The instrument was then withdrawn, the patient tolerated the procedure well and was transferred out of the Endoscopy Suite awake and in good condition to continue recovery under observation. Copies To: CC: KALEE RAUSCH MD, MORDO MD Apr 10, 2017 20:28
--- NOTE | 2017-04-10 20:44 | HPN ---
Date/Time of Note Date/Time of Note DATE: 04/10/17 TIME: 19:43 Interval H&P Admission Note Pt. seen H&P reviewed: No system changes KALEE RAUSCH MD Apr 10, 2017 20:44
[2017-04-10] MEDS: MESALAMINE (EC) 400 MG CAP PO SCH ×2 (21:00→22:00)
[2017-04-10] MEDS ORDERED: PENTOXIFYLLINE (SR) 400 MG TAB PO SCH (21:00)
[2017-04-10] MEDS ORDERED: DIPHENHYDRAMINE 50 MG INJ IV ONE (23:30)
[2017-04-10] MEDS ORDERED: DIPHENHYDRAMINE 50 MG INJ ONE (23:30)
[2017-04-11] VITALS (13 sets, daily range): BP systolic 99–144; BP diastolic 52–90; PULSE 50–105; RESP 16–19
[2017-04-11] MEDS ORDERED: HALOPERIDOL 5 MG INJ IM ONE (00:30)
[2017-04-11] MEDS ORDERED: LORAZEPAM 2 MG INJ IV ONE (00:30)
[2017-04-11] MEDS ORDERED: LISINOPRIL 5 MG TAB PO ONE (01:30)
[2017-04-11] MEDS: metroNIDAZOLE 500 MG/NS (PMX) 100 ML IVPB SCH ×3 (05:20→21:39)
--- NOTE | 2017-04-11 07:04 | CONS ---
Date/Time of Note Date/Time of Note DATE: 04/11/17 TIME: 07:02 Assessment/Plan Assessment/Plan Chief Complaint/Hosp Course Presyncope: Likely vasovagal/orthostatic episode secondary to dehydration based on history and presentation. Hypotension: secondary to dehydration. Resolved Diarrhea/colitis: ?viral gastroenteritis. Ruled out for c diff. [place] 04/10 showed colitis/ulcer and concern for ischemic etiology Cardiomyopathy: EF 25% by echo previously, 52% by MRI. On echo here mild dysfunction ~45% in some views. Compensated by exam SVT: few beats of possible AT and has frequent PACs. HTN -bisoprolol 2.5mg daily -lisinopril if BP still elevated and pt agreeable -monitor on tele Problems: Consultation Date/Type/Reason Admit Date/Time Apr 06, 2017 at 15:27 Initial Consult Date 04/07/17 Type of Consultation: Cardiology Referring Provider: ARAM PAZ NP 24 HR Interval Summary Free Text/Dictation [place] showed colitis/ulcer and concern for ischemic etiology. One short run of SVT this am. No complaints. Exam/Review of Systems Vital Signs Vitals Vital Signs Date Time Temp Pulse Resp B/P Pulse Ox O2 Delivery O2 Flow Rate FiO2 04/11/17 04:02 70 04/11/17 03:51 97.7 19 144/90 96 04/10/17 20:45 Room Air 04/10/17 20:06 12 04/10/17 01:06 21 Intake and Output 04/10/17 04/10/17 04/11/17 15:00 23:00 07:00 Intake Total 400 ml 500 ml Output Total 1050 ml 700 ml Balance -650 ml -200 ml Exam Constitutional: alert, oriented Psych: no complaints Head: atraumatic, normocephalic Neck: No jvd Respiratory: clear to auscultation, No crackles/rales Cardiovascular: regular rate and rhythm, No edema, No systolic murmur Gastrointestinal: non-tender, soft Neurological: nl mental status, nl speech Results Result Diagram: 04/10/17 0514 04/10/17 0514 Results 24 hrs Laboratory Tests Test 04/11/17 06:42 04/11/17 06:44 Lab Scanned Report REFERENCE LAB REFERENCE LAB Medications Medications Current Medications Ondansetron HCl (Zofran Inj) 4 mg Q6H PRN IV NAUSEA AND/OR VOMITING; Start 04/06/17 at 16:30 Acetaminophen (Tylenol Tab) 650 mg Q6H PRN PO PAIN LEVEL 1-3 OR FEVER; Start 04/06/17 at 16:30 Acetaminophen/ Hydrocodone Bitart ([place] (5/325)) 1 tab Q6H PRN PO PAIN LEVEL 4 -6; Start 04/06/17 at 16:30 Lisinopril (Zestril) 5 mg DAILY PO Last administered on 04/07/17 08:53; Admin Dose 5 MG; Start 04/07/17 at 09:00; Status Future Hold Diltiazem HCl 10 mg 10 mg Q2H PRN IV HR>160; Start 04/06/17 at 17:00 Metronidazole (Flagyl 500 Mg (Pmx)) 100 ml @ 100 mls/hr Q8 IVPB Last administered on 04/11/17 05:20; Admin Dose 100 MLS/HR; Start 04/07/17 at 14:00 Gabapentin 300 mg 300 mg Q12 PRN PO Itching Last administered on 04/10/17 22: 24; Admin Dose 300 MG; Start 04/07/17 at 18:00 Ciprofloxacin/ Dextrose (Cipro Ivpb) 100 ml @ 100 mls/hr Q12 IVPB Last administered on 04/10/17 22:00; Admin Dose 100 MLS/HR; Start 04/08/17 at 21:00 Loratadine (Claritin) 10 mg DAILY PO Last administered on 04/10/17 09:28; Admin Dose 10 MG; Start 04/09/17 at 09:00 Ranitidine HCl (Zantac) 150 mg BID PO Last administered on 04/10/17 22:00; Admin Dose 150 MG; Start 04/08/17 at 21:00 Betamethasone Dipropion Augmented (Diprolene Af 0.05% Cr) 1 applic BID TOP Last administered on 04/10/17 21:00; Admin Dose 1 APPLIC; Start 04/08/17 at 21: 00 Bisoprolol Fumarate (Zebeta) 2.5 mg DAILY PO ; Start 04/11/17 at 09:00 Pentoxifylline (Trental) 400 mg TID PO Last administered on 04/10/17 22:00; Admin Dose 400 MG; Start 04/10/17 at 21:00; Status Future Hold Mesalamine (Delzicol Dr) 800 mg TID PO ; Start 04/10/17 at 21:00 BRI SORIANO Apr 11, 2017 07:03
[2017-04-11] MEDS: LEVOTHYROXINE 100 MCG TAB PO SCH (07:50)
[2017-04-11 08:52] LABS: MAGNESIUM 1.7 mg/dl (1.7-2.5); PHOSPHORUS 3.1 mg/dl (2.5-4.9)
[2017-04-11] MEDS: MESALAMINE (EC) 400 MG CAP PO SCH ×3 (09:00→21:00)
[2017-04-11] MEDS: LORATADINE 10 MG TAB PO SCH (09:44)
[2017-04-11] MEDS: BISOPROLOL 5 MG TAB PO SCH (09:44)
[2017-04-11] MEDS: RANITIDINE 150 MG TAB PO SCH ×2 (09:44→21:38)
[2017-04-11] MEDS: BETAMETHASONE TOP SCH ×2 (09:45→21:39)
[2017-04-11] MEDS: CIPROFLOXACIN 200 MG/D5W IVPB 100 ML IVPB SCH ×2 (09:46→21:45)
[2017-04-11] MEDS: GABAPENTIN 300 MG CAP PO PRN ×2 (10:45→21:45)
--- NOTE | 2017-04-11 12:16 | PN ---
Date/Time of Note Date/Time of Note DATE: 04/11/17 TIME: 12:10 Assessment/Plan Lines/Catheters IV Catheter Type (from [facility]): Saline Lock Urinary Cath still in place: Yes Assessment/Plan Chief Complaint/Hosp Course Assessment and plan 1. Near syncope. Likely from underlying vasovagal response due to patient having multiple episodes of diarrhea. Patient did have brain CT and MRI was negative for any acute findings. Carotid Doppler was also negative for any hemodynamically significant stenosis. Ejection fraction was seen at 45% per echocardiogram. Patient was seen by neurologist and no further neurologist workup recommended. 2. Paroxysmal atrial tachycardia and frequent PVC. Theatre Professor following. Keep magnesium and potassium levels at optimal levels. 3. Diarrhea. Etiology unknown. CT scan showing some colitis. Continue antibiotics. Stool C. difficile is negative for any C. difficile. GI following. Status post colonoscopy with biopsy. Follow-up on result. Continue mesalamine per GI recommendations 4. Essential hypertension. Continue antihypertensives and dyspnea 5. Hypothyroidism. Continue Synthroid 6. Acute nonoliguric kidney disease. Avoid nephrotoxic medications. Renal ultrasound showing evidence of CKD. Monitor renal panel for now. 7. Cardiomyopathy with EF of 45%. Continue on RONY inhibitor. RONY inhibitor on hold due to a renal dysfunction. 8. Prediabetes. A1c seen at 6.1. Monitor for now. 9. Transient hypoxic episode. CTA was negative for any pulmonary embolism. Improved at present. Provide with O2 as needed. 10. Chronic dermatitis. Patient for outpatient dermatology consultation. Disposition plan: Continue mesalamine. Follow-up on colonoscopy results. Discharge when cleared by consultants Discussed plan of care with Dr. Lawson Problems: Subjective 24 Hr Interval Summary Free Text/Dictation No reports of diarrhea noted at this time. Exam/Review of Systems Vital Signs Vitals Vital Signs Date Time Temp Pulse Resp B/P Pulse Ox O2 Delivery O2 Flow Rate FiO2 04/11/17 11:56 97.4 75 16 102/56 97 04/10/17 20:45 Room Air 04/10/17 20:06 12 04/10/17 01:06 21 Intake and Output 04/10/17 04/10/17 04/11/17 15:00 23:00 07:00 Intake Total 400 ml 500 ml Output Total 1050 ml 700 ml Balance -650 ml -200 ml Exam Constitutional: alert, oriented Head: normocephalic Neck: supple Respiratory: clear to auscultation, normal air movement Cardiovascular: regular rate and rhythm Gastrointestinal: non-tender, soft Musculoskeletal: No nl gait and stance Neurological: BACK END WEB DEVELOPER II-XII intact, nl mental status, nl speech Skin: other (rash left lower extremity ) Results Result Diagram: 04/10/1751304/10/17513 Results 24 hrs Laboratory Tests Test 04/11/17 06:42 04/11/17 06:44 04/11/17 07:33 Lab Scanned Report REFERENCE LAB REFERENCE LAB Phosphorus Level 3.1 Magnesium Level 1.7 Medications Medications Current Medications Ondansetron HCl (Zofran Inj) 4 mg Q6H PRN IV NAUSEA AND/OR VOMITING; Start 04/06/17 at 16:30 Acetaminophen (Tylenol Tab) 650 mg Q6H PRN PO PAIN LEVEL 1-3 OR FEVER; Start 04/06/17 at 16:30 Acetaminophen/ Hydrocodone Bitart ([place] (5/325)) 1 tab Q6H PRN PO PAIN LEVEL 4 -6; Start 04/06/17 at 16:30 Lisinopril (Zestril) 5 mg DAILY PO Last administered on 04/07/17 08:53; Admin Dose 5 MG; Start 04/07/17 at 09:00; Status Future Hold Diltiazem HCl 10 mg 10 mg Q2H PRN IV HR>160; Start 04/06/17 at 17:00 Metronidazole (Flagyl 500 Mg (Pmx)) 100 ml @ 100 mls/hr Q8 IVPB Last administered on 04/11/17 05:20; Admin Dose 100 MLS/HR; Start 04/07/17 at 14:00 Gabapentin 300 mg 300 mg Q12 PRN PO Itching Last administered on 04/11/17 10: 45; Admin Dose 300 MG; Start 04/07/17 at 18:00 Ciprofloxacin/ Dextrose (Cipro Ivpb) 100 ml @ 100 mls/hr Q12 IVPB Last administered on 04/11/17 09:46; Admin Dose 100 MLS/HR; Start 04/08/17 at 21:00 Loratadine (Claritin) 10 mg DAILY PO Last administered on 04/11/17 09:44; Admin Dose 10 MG; Start 04/09/17 at 09:00 Ranitidine HCl (Zantac) 150 mg BID PO Last administered on 04/11/17 09:44; Admin Dose 150 MG; Start 04/08/17 at 21:00 Betamethasone Dipropion Augmented (Diprolene Af 0.05% Cr) 1 applic BID TOP Last administered on 04/11/17 09:45; Admin Dose 1 APPLIC; Start 04/08/17 at 21 :00 Bisoprolol Fumarate (Zebeta) 2.5 mg DAILY PO Last administered on 04/11/17 09 :44; Admin Dose 2.5 MG; Start 04/11/17 at 09:00 Pentoxifylline (Trental) 400 mg TID PO Last administered on 04/10/17 22:00; Admin Dose 400 MG; Start 04/10/17 at 21:00; Status Future Hold Mesalamine (Delzicol Dr) 800 mg TID PO ; Start 04/10/17 at 21:00 DENIS ROCKWELL Apr 11, 2017 12:16
[2017-04-11 12:20] LABS: BASOPHILS % 0.7 % (0.0-2.0); EOSINOPHILS # 0.3 10^3/ul (0.0-0.5); EOSINOPHILS % 7.2 % (0.0-7.0); HEMATOCRIT 31.9 % (37.0-47.0); HEMOGLOBIN 9.7 g/dl (12.0-16.0); LYMPHOCYTES # 0.9 10^3/ul (0.8-2.9); LYMPHOCYTES % 19.9 % (15.0-51.0); MEAN CORPUSCULAR HEMOGLOBIN 29.8 pg (29.0-33.0); MEAN CORPUSCULAR HGB CONC 30.4 g/dl (32.0-37.0); MEAN CORPUSCULAR VOLUME 97.9 fl (82.0-101.0); MEAN PLATELET VOLUME 9.6 fl (7.4-10.4); MONOCYTE # 0.5 10^3/ul (0.3-0.9); MONOCYTES % 11.4 % (0.0-11.0); NEUTROPHIL # 2.6 10^3/ul (1.6-7.5); NEUTROPHILS % 60.3 % (39.0-77.0); PLATELET COUNT 236 10^3/UL (140-415); RED BLOOD COUNT 3.26 10^6/ul (4.20-5.40); RED CELL DISTRIBUTION WIDTH 14.6 % (11.5-14.5); WHITE BLOOD COUNT 4.3 10^3/ul (4.8-10.8)
[2017-04-11 12:27] LABS: ALBUMIN 2.8 g/dl (3.3-4.9); ALBUMIN/GLOBULIN RATIO 1.03; BILIRUBIN,INDIRECT 0.2 mg/dl (0-1.1); BILIRUBIN,TOTAL 0.2 mg/dl (0.2-1.3); CALCIUM 8.2 mg/dl (8.4-10.2); CREATININE 0.83 mg/dl (0.44-1.00); POTASSIUM 3.7 mmol/L (3.5-5.1); TOTAL PROTEIN 5.5 g/dl (6.1-8.1)
--- NOTE | 2017-04-11 17:01 | PN ---
Date/Time of Note Date/Time of Note DATE: 04/11/17 TIME: 16:49 Assessment/Plan VTE Prophylaxis VTE Prophylaxis Intervention: SCD's Lines/Catheters IV [facility] (from [facility] Peripheral IV Urinary Cath still in place: Yes Reason Cath still needed: other (indicate) (monitor out-put) Assessment/Plan Chief Complaint/Hosp Course Assessment: Significant diarrhea/abnormal CT of the abdomen with thickening of the colon Colonoscopy 04/10/17 * Segmental sigmoid and descending colitis with ulceration. Consistent with ischemic bowel. Biopsies obtained * Otherwise normal colonoscopy to cecum * Normal terminal ileum * Moderate-sized internal hemorrhoid Near syncopal episode Paroxysmal atrial tachycardia with frequent PVCs/cardiology involved Hypertension Hypothyroidism Acute renal failure History of prediabetes Mild rhabdomyolysis Chronic dermatitis Plan: Stool positive for pseudomonas Continue antibiotics Ct angio abdomen/pelvis to be done today- rule out critical lesions amenable to therapeutic intervention Patient seen in collaboration with Dr. Barragan Subjective: Course reviewed with nursing staff Patient interviewed and examined All labs, imaging and other results reviewed The patient is feeling a little better, spoke to patient, [id number], and She is not able to tolerate po mesalamine as the pill is too large for her to swallow. Also c/o headache about 20 min after taking trental and has not had any further doses treatment is empiric and not critical at this time. x1 small episode of diarrhea- if continues or worsens should reconsider checking for c-diff Problems: Exam/Review of Systems Vital Signs Vitals Vital Signs Date Time Temp Pulse Resp B/P Pulse Ox O2 Delivery O2 Flow Rate FiO2 04/11/17 15:01 98.0 51 17 122/60 96 04/10/17 20:45 Room Air 04/10/17 20:06 12 04/10/17 01:06 21 Intake and Output 04/10/17 04/10/17 04/11/17 15:00 23:00 07:00 Intake Total 400 ml 500 ml Output Total 1050 ml 700 ml Balance -650 ml -200 ml Results Result Diagram: 04/11/17 0733 04/11/17 0733 Results 24 hrs Laboratory Tests Test 04/11/17 06:42 04/11/17 06:44 04/11/17 07:33 Lab Scanned Report REFERENCE LAB REFERENCE LAB White Blood Count 4.3 #L Red Blood Count 3.26 L Hemoglobin 9.7 L Hematocrit 31.9 L Mean Corpuscular Volume 97.9 Mean Corpuscular Hemoglobin 29.8 Mean Corpuscular Hemoglobin Concent 30.4 L Red Cell Distribution Width 14.6 H Platelet Count 236 Mean Platelet Volume 9.6 Neutrophils % 60.3 Lymphocytes % 19.9 Monocytes % 11.4 H Eosinophils % 7.2 H Basophils % 0.7 Nucleated Red Blood Cells % 0.0 Neutrophils # 2.6 Lymphocytes # 0.9 Monocytes # 0.5 Eosinophils # 0.3 Basophils # 0.0 Nucleated Red Blood Cells # 0.0 Sodium Level 140 Potassium Level 3.7 Chloride Level 109 Carbon Dioxide Level 25 Anion Gap 10 Blood Urea Nitrogen 12 Creatinine 0.83 Glucose Level 88 Calcium Level 8.2 L Phosphorus Level 3.1 Magnesium Level 1.7 Total Bilirubin 0.2 Direct Bilirubin 0.00 Indirect Bilirubin 0.2 Aspartate Amino Transf (AST/SGOT) 34 Alanine Aminotransferase (ALT/SGPT) 35 Alkaline Phosphatase 63 Total Protein 5.5 L Albumin 2.8 L Globulin 2.70 Albumin/Globulin Ratio 1.03 Medications Medications Current Medications Ondansetron HCl (Zofran Inj) 4 mg Q6H PRN IV NAUSEA AND/OR VOMITING; Start 04/06/17 at 16:30 Acetaminophen (Tylenol Tab) 650 mg Q6H PRN PO PAIN LEVEL 1-3 OR FEVER; Start 04/06/17 at 16:30 Acetaminophen/ Hydrocodone Bitart ([place] (5/325)) 1 tab Q6H PRN PO PAIN LEVEL 4 -6; Start 04/06/17 at 16:30 Lisinopril (Zestril) 5 mg DAILY PO Last administered on 04/07/17 08:53; Admin Dose 5 MG; Start 04/07/17 at 09:00; Status Future Hold Diltiazem HCl 10 mg 10 mg Q2H PRN IV HR>160; Start 04/06/17 at 17:00 Metronidazole (Flagyl 500 Mg (Pmx)) 100 ml @ 100 mls/hr Q8 IVPB Last administered on 04/11/17 14:30; Admin Dose 100 MLS/HR; Start 04/07/17 at 14:00 Gabapentin 300 mg 300 mg Q12 PRN PO Itching Last administered on 04/11/17 10: 45; Admin Dose 300 MG; Start 04/07/17 at 18:00 Ciprofloxacin/ Dextrose (Cipro Ivpb) 100 ml @ 100 mls/hr Q12 IVPB Last administered on 04/11/17 09:46; Admin Dose 100 MLS/HR; Start 04/08/17 at 21:00 Loratadine (Claritin) 10 mg DAILY PO Last administered on 04/11/17 09:44; Admin Dose 10 MG; Start 04/09/17 at 09:00 Ranitidine HCl (Zantac) 150 mg BID PO Last administered on 04/11/17 09:44; Admin Dose 150 MG; Start 04/08/17 at 21:00 Betamethasone Dipropion Augmented (Diprolene Af 0.05% Cr) 1 applic BID TOP Last administered on 04/11/17 09:45; Admin Dose 1 APPLIC; Start 04/08/17 at 21 :00 Bisoprolol Fumarate (Zebeta) 2.5 mg DAILY PO Last administered on 04/11/17 09 :44; Admin Dose 2.5 MG; Start 04/11/17 at 09:00 Pentoxifylline (Trental) 400 mg TID PO Last administered on 04/10/17 22:00; Admin Dose 400 MG; Start 04/10/17 at 21:00; Status Future Hold Mesalamine (Delzicol Dr) 800 mg TID PO ; Start 04/10/17 at 21:00 MOSES VALLADARES Apr 11, 2017 17:01
[2017-04-11] MEDS ORDERED: SOD CHLORIDE 0.9% 100 ML ONE (17:25)
[2017-04-11] MEDS ORDERED: IOHEXOL 100 ML ONE (17:25)
[2017-04-12] VITALS (13 sets, daily range): BP systolic 101–147; BP diastolic 50–65; PULSE 40–77; RESP 16–20
[2017-04-12] MEDS: LEVOTHYROXINE 100 MCG TAB PO SCH (06:22)
[2017-04-12] MEDS: metroNIDAZOLE 500 MG/NS (PMX) 100 ML IVPB SCH ×3 (06:24→22:16)
[2017-04-12] MEDS: MESALAMINE (EC) 400 MG CAP PO SCH ×2 (09:00→13:00)
[2017-04-12] MEDS: BISOPROLOL 5 MG TAB PO SCH (09:12)
[2017-04-12] MEDS: LORATADINE 10 MG TAB PO SCH (09:13)
[2017-04-12] MEDS: RANITIDINE 150 MG TAB PO SCH ×2 (09:14→20:31)
[2017-04-12] MEDS: GABAPENTIN 300 MG CAP PO PRN ×2 (10:21→22:17)
[2017-04-12] MEDS: CIPROFLOXACIN 200 MG/D5W IVPB 100 ML IVPB SCH ×2 (10:38→20:31)
[2017-04-12] MEDS: BETAMETHASONE TOP SCH ×2 (10:39→20:32)
--- NOTE | 2017-04-12 11:19 | RADRPT ---
PROCEDURE: CTA abdomen and pelvis with multiphase imaging. CLINICAL INDICATION: Abdominal pain. Ischemic bowel. TECHNIQUE: The study was performed utilizing a multi-slice multidetector CT scanner. Direct spiral 0.5 mm axial sections were obtained from the upper abdomen to the pelvis with the use of 100 cc of Omnipaque 350 nonionic intravenous contrast material and reformatted at 3 mm. Pre contrast and ve nous phase images were also obtained. Coronal reformations were obtained. 3-D MIP images were also r eviewed. The images were reviewed on a PACS workstation. The CTDIvol is 8.43, 7.48, and 5.64 mGy an d the DLP is 1038.15 mGycm. COMPARISON: CT abdomen and pelvis 04/06/2017 One or more of the following dose reduction techniques were used: Automated exposure control. Adjustment of the mA and/or kV according to patient size. Use of iterative reconstruction technique. FINDINGS: Vascular: There is tortuous abdominal aorta without aneurysmal dilatation. There is mild aortoiliac calcific d isease. Celiac, SMA are patent with no significant ostial stenosis. Common hepatic artery takes off of the S MA. There is a heavily calcified plaque at the origin of the LOIS with probable moderate stenosis. Th ere are single bilateral renal arteries with no significant ostial stenosis. Portal venous system is patent. CT abdomen: The lung bases are remarkable for small left pleural effusion with bibasilar atelectasis. The heart size is normal, without pericardial thickening or effusion. The liver is normal in size and density without focal mass or intrahepatic biliary dilatation. The spleen is normal in size. The stomach i s decompressed and collapsed, but otherwise grossly unremarkable. The pancreas as visualized is norm al. The gallbladder is unremarkable. There is no intrahepatic biliary ductal dilatation. Common bile duct measures up to 8 mm likely within normal limits for the patient's age. The adrenal glands are unremarkable. The kidneys are symmetrically unremarkable as well. There is no obstructive uropathy or mass lesion is seen. There is approximately 3 cm simple cyst in the posterior mid pole left kidne y. There is no retroperitoneal lymphadenopathy. Small sub-centimeter nodes only are seen, not enlarge d by size criteria. The lacy hepatis region is clear. There is mucosal hyperenhancement of the rect osigmoid colon and the splenic flexure suggestive of nonspecific colitis. There is sigmoid diverticu losis without focal wall thickening to suggest acute diverticulitis. There is no peridiverticular ab scess. CT pelvis: The small bowel loops situated within the pelvis are unremarkable. The urinary bladder is decompress ed with Torres catheter in place. The pelvic sidewalls and inguinal regions are clear. The sigmoid colon and rectum are remarkable for sigmoid diverticulosis. No mass, lymphadenopathy, or free fluid is seen. No acute inflammation is seen. The surrounding osseous structures are remarkable for multil evel degenerative changes. There is chronic compression fracture of L1 with approximately 40% height loss centrally. Vertebroplasty changes are noted. No osteolytic or osteoblastic lesion is detected. IMPRESSION: Vascular: 1. Focal calcific plaque at the origin of the LOIS with probable moderate stenosis. 2. SMA and celiac arteries are widely patent with no significant ostial stenosis. 3. Tortuous abdominal aorta without aneurysmal dilatation. Scattered aortoiliac atherosclerosis. Abdomen and pelvis: 1. Resolution of previously seen diffuse wall thickening of the left colon. Segmental mucosal hypere nhancement involving splenic flexure and rectosigmoid colon suggesting nonspecific colitis. 2. Sigmoid diverticulosis without peridiverticular abscess. 3. Increased small left pleural effusion with bibasilar atelectasis. RPTAT: BB .Loretta Dash MD, MD Date Time Electronically viewed and signed by .Loretta Dash MD, on 04/12/2017 11:19 .O/
[2017-04-12] MEDS ORDERED: ASA400 PO (11:45)
[2017-04-12] MEDS ORDERED: RANI150T5 PO (11:45)
[2017-04-12] MEDS ORDERED: BISO5TAB21 PO (11:45)
--- NOTE | 2017-04-12 11:55 | PN ---
Date/Time of Note Date/Time of Note DATE: 04/12/17 TIME: 11:48 Assessment/Plan VTE Prophylaxis VTE Prophylaxis Intervention: SCD's Lines/Catheters IV [facility]from [facility] [place] Urinary Cath still in place: Yes Assessment/Plan Chief Complaint/Hosp Course Assessment and plan 1. Near syncope. Likely from underlying vasovagal response due to patient having multiple episodes of diarrhea. Patient did have brain CT and MRI was negative for any acute findings. Carotid Doppler was also negative for any hemodynamically significant stenosis. Ejection fraction was seen at 45% per echocardiogram. Patient was seen by neurologist and no further neurologist workup recommended. 2. Paroxysmal atrial tachycardia and frequent PVC. Sanding Machine Buffer following. Keep magnesium and potassium levels at optimal levels.noted with cardiac pause today. follow up with floodplain manager recs 3. Diarrhea. Etiology unknown. CT scan showing some colitis. Continue antibiotics. Stool C. difficile is negative for any C. difficile. Status post colonoscopy with findings showing Pseudomonas in the stool. No further reports of diarrhea at this time. Will monitor for now. Of note patient was prescribed mesalamine but unable to take medication due to pill size. Per recycling worker no critical need for medication at this time. Will follow up and consider restarting if persists with diarrhea. 4. Essential hypertension. Continue antihypertensives and dyspnea 5. Hypothyroidism. Continue Synthroid 6. Acute nonoliguric kidney disease. Avoid nephrotoxic medications. Renal ultrasound showing evidence of CKD. Monitor renal panel for now. 7. Cardiomyopathy with EF of 45%. Continue on RONY inhibitor. RONY inhibitor on hold due to a renal dysfunction. 8. Prediabetes. A1c seen at 6.1. Monitor for now. 9. Transient hypoxic episode. CTA was negative for any pulmonary embolism. Improved at present. Provide with O2 as needed. 10. Chronic dermatitis. Patient for outpatient dermatology consultation. Disposition plan: 12 lead ekg ordered. follow up with floodplain manager recs Discussed plan of care with Dr. Lawson Problems: Subjective 24 Hr Interval Summary Free Text/Dictation no s/s of distress, less diarrhea. noted with reported cardiac pause per bus monitor. Exam/Review of Systems Vital Signs Vitals Vital Signs Date Time Temp Pulse Resp B/P Pulse Ox O2 Delivery O2 Flow Rate FiO2 04/12/17 11:36 97.6 75 16 147/65 94 04/10/17 20:45 Room Air 04/10/17 20:06 12 04/10/17 01:06 21 Intake and Output 04/11/17 04/11/17 04/12/17 15:00 23:00 07:00 Intake Total 100 ml 800 ml 300 ml Output Total 450 ml 650 ml Balance 100 ml 350 ml -350 ml Exam Constitutional: alert, oriented Head: normocephalic Neck: supple Respiratory: clear to auscultation, normal air movement Cardiovascular: regular rate and rhythm Gastrointestinal: non-tender, soft Musculoskeletal: No nl gait and stance Neurological: PRODUCT SAFETY ADMINISTRATOR II-XII intact, nl mental status, nl speech Skin: other (rash left lower extremity ) Results Result Diagram: 04/11/1773204/11/17732 Medications Medications Current Medications Ondansetron HCl (Zofran Inj) 4 mg Q6H PRN IV NAUSEA AND/OR VOMITING; Start 04/06/17 at 16:30 Acetaminophen (Tylenol Tab) 650 mg Q6H PRN PO PAIN LEVEL 1-3 OR FEVER; Start 04/06/17 at 16:30 Acetaminophen/ Hydrocodone Bitart ([place] (5/325)) 1 tab Q6H PRN PO PAIN LEVEL 4 -6; Start 04/06/17 at 16:30 Lisinopril (Zestril) 5 mg DAILY PO Last administered on 04/07/17 08:53; Admin Dose 5 MG; Start 04/07/17 at 09:00; Status Future Hold Diltiazem HCl 10 mg 10 mg Q2H PRN IV HR>160; Start 04/06/17 at 17:00 Metronidazole (Flagyl 500 Mg (Pmx)) 100 ml @ 100 mls/hr Q8 IVPB Last administered on 04/12/17 06:24; Admin Dose 100 MLS/HR; Start 04/07/17 at 14:00 Gabapentin 300 mg 300 mg Q12 PRN PO Itching Last administered on 04/12/17 10: 21; Admin Dose 300 MG; Start 04/07/17 at 18:00 Ciprofloxacin/ Dextrose (Cipro Ivpb) 100 ml @ 100 mls/hr Q12 IVPB Last administered on 04/12/17 10:38; Admin Dose 100 MLS/HR; Start 04/08/17 at 21:00 Loratadine (Claritin) 10 mg DAILY PO Last administered on 04/12/17 09:13; Admin Dose 10 MG; Start 04/09/17 at 09:00 Ranitidine HCl (Zantac) 150 mg BID PO Last administered on 04/12/17 09:14; Admin Dose 150 MG; Start 04/08/17 at 21:00 Betamethasone Dipropion Augmented (Diprolene Af 0.05% Cr) 1 applic BID TOP Last administered on 04/12/17 10:39; Admin Dose 1 APPLIC; Start 04/08/17 at 21 :00 Bisoprolol Fumarate (Zebeta) 2.5 mg DAILY PO Last administered on 04/12/17 09 :12; Admin Dose 2.5 MG; Start 04/11/17 at 09:00 Pentoxifylline (Trental) 400 mg TID PO Last administered on 04/10/17 22:00; Admin Dose 400 MG; Start 04/10/17 at 21:00; Status Future Hold Mesalamine (Delzicol Dr) 800 mg TID PO ; Start 04/10/17 at 21:00 DENIS ROCKWELL Apr 12, 2017 11:55
--- NOTE | 2017-04-12 15:24 | PN ---
Date/Time of Note Date/Time of Note DATE: 04/12/17 TIME: 15:15 Assessment/Plan VTE Prophylaxis VTE Prophylaxis Intervention: SCD's Lines/Catheters IV Catheter Type (from Nrsg): Peripheral IV Urinary Cath still in place: Yes Reason Cath still needed: other (indicate) (monitor out-put) Assessment/Plan Chief Complaint/Hosp Course Assessment: Significant diarrhea/improved Colonoscopy 04/10/17 * Segmental sigmoid and descending colitis with ulceration. Consistent with ischemic bowel. Biopsies obtained * Otherwise normal colonoscopy to cecum * Normal terminal ileum * Moderate-sized internal hemorrhoid Near syncopal episode Paroxysmal atrial tachycardia with frequent PVCs/cardiology involved Hypertension Hypothyroidism Acute renal failure History of prediabetes Mild rhabdomyolysis Chronic dermatitis Plan: Stool positive for pseudomonas Continue antibiotics and IV fluids as tolerated Ct angio abdomen/pelvis negative for critical lesions Will stop mesalamine and Trental Cleared from GI point of view Consider repeat colonoscopy in the next 6 months Follow up as out-patient 2-4 weeks Patient seen in collaboration with Dr. Barragan Subjective: Course reviewed with nursing staff Patient interviewed and examined All labs, imaging and other results reviewed The patient is feeling a little better, at bedside Denies abd pain, nausea, vomiting, rectal bleeding, or diarrhea Will stop mesalamine and Trental Pause noted on tele during the night, patient under going cardiac work-up Problems: Exam/Review of Systems Vital Signs Vitals Vital Signs Date Time Temp Pulse Resp B/P Pulse Ox O2 Delivery O2 Flow Rate FiO2 04/12/17 12:46 72 04/12/17 11:50 97.6 16 146/62 95 Room Air Nasal Cannula 04/10/17 20:06 12 04/10/17 01:06 21 Intake and Output 04/11/17 04/11/17 04/12/17 15:00 23:00 07:00 Intake Total 100 ml 800 ml 300 ml Output Total 450 ml 650 ml Balance 100 ml 350 ml -350 ml Results Result Diagram: 04/11/17 0733 04/11/17 07 Medications Medications Current Medications Ondansetron HCl (Zofran Inj) 4 mg Q6H PRN IV NAUSEA AND/OR VOMITING; Start 04/06/17 at 16:30 Acetaminophen (Tylenol Tab) 650 mg Q6H PRN PO PAIN LEVEL 1-3 OR FEVER; Start 04/06/17 at 16:30 Acetaminophen/ Hydrocodone Bitart ([place] (5/325)) 1 tab Q6H PRN PO PAIN LEVEL 4 -6; Start 04/06/17 at 16:30 Lisinopril (Zestril) 5 mg DAILY PO Last administered on 04/07/17 08:53; Admin Dose 5 MG; Start 04/07/17 at 09:00; Status Future Hold Diltiazem HCl 10 mg 10 mg Q2H PRN IV HR>160; Start 04/06/17 at 17:00 Metronidazole (Flagyl 500 Mg (Pmx)) 100 ml @ 100 mls/hr Q8 IVPB Last administered on 04/12/17 13:37; Admin Dose 100 MLS/HR; Start 04/07/17 at 14:00 Gabapentin 300 mg 300 mg Q12 PRN PO Itching Last administered on 04/12/17 10: 21; Admin Dose 300 MG; Start 04/07/17 at 18:00 Ciprofloxacin/ Dextrose (Cipro Ivpb) 100 ml @ 100 mls/hr Q12 IVPB Last administered on 04/12/17 10:38; Admin Dose 100 MLS/HR; Start 04/08/17 at 21:00 Loratadine (Claritin) 10 mg DAILY PO Last administered on 04/12/17 09:13; Admin Dose 10 MG; Start 04/09/17 at 09:00 Ranitidine HCl (Zantac) 150 mg BID PO Last administered on 04/12/17 09:14; Admin Dose 150 MG; Start 04/08/17 at 21:00 Betamethasone Dipropion Augmented (Diprolene Af 0.05% Cr) 1 applic BID TOP Last administered on 04/12/17 10:39; Admin Dose 1 APPLIC; Start 04/08/17 at 21 :00 Bisoprolol Fumarate (Zebeta) 2.5 mg DAILY PO Last administered on 04/12/17 09 :12; Admin Dose 2.5 MG; Start 04/11/17 at 09:00 Pentoxifylline (Trental) 400 mg TID PO Last administered on 04/10/17 22:00; Admin Dose 400 MG; Start 04/10/17 at 21:00; Status Future Hold Mesalamine (Delzicol Dr) 800 mg TID PO ; Start 10/9/17 at 21:00 MOSES VALLADARES Apr 12, 2017 15:24 MOSES VALLADARES Apr 12, 2017 15:24
--- NOTE | 2017-04-12 17:39 | CONS ---
Date/Time of Note Date/Time of Note DATE: 04/12/17 TIME: 17:38 Assessment/Plan Assessment/Plan Chief Complaint/Hosp Course Presyncope: Likely vasovagal/orthostatic episode secondary to dehydration based on history and presentation. Hypotension: secondary to dehydration. Resolved Diarrhea/colitis: ?viral gastroenteritis. Ruled out for c diff. [place] 04/10 showed colitis/ulcer and concern for ischemic etiology Cardiomyopathy: EF 25% by echo previously, 52% by MRI. On echo here mild dysfunction ~45% in some views. Compensated by exam SVT: few beats of possible AT and has frequent PACs. HTN -bisoprolol 2.5mg daily -lisinopril if BP still elevated and pt agreeable -monitor on tele Problems: Consultation Date/Type/Reason Admit Date/Time Apr 06, 2017 at 15:27 Initial Consult Date 04/07/17 Type of Consultation: Cardiology Referring Provider: ARAM PAZ NP 24 HR Interval Summary Free Text/Dictation Still with PACs on tele. Overall feels well and wants to get up and move around. Wants nance removed. Exam/Review of Systems Vital Signs Vitals Vital Signs Date Time Temp Pulse Resp B/P Pulse Ox O2 Delivery O2 Flow Rate FiO2 04/12/17 16:44 77 04/12/17 15:36 98.7 17 124/57 94 04/12/17 11:50 Room Air Nasal Cannula 04/10/17 20:06 12 04/10/17 01:06 21 Intake and Output 04/11/17 04/11/17 04/12/17 15:00 23:00 07:00 Intake Total 100 ml 800 ml 300 ml Output Total 450 ml 650 ml Balance 100 ml 350 ml -350 ml Exam Constitutional: alert, oriented Psych: no complaints Head: atraumatic, normocephalic Neck: No jvd Respiratory: clear to auscultation, diminished breath sounds, No crackles/rales Cardiovascular: regular rate and rhythm, No edema Gastrointestinal: non-tender, soft Neurological: nl mental status, nl speech Results Result Diagram: 04/11/1773204/11/17732 Medications Medications Current Medications Ondansetron HCl (Zofran Inj) 4 mg Q6H PRN IV NAUSEA AND/OR VOMITING; Start 04/06/17 at 16:30 Acetaminophen (Tylenol Tab) 650 mg Q6H PRN PO PAIN LEVEL 1-3 OR FEVER; Start 04/06/17 at 16:30 Acetaminophen/ Hydrocodone Bitart ([place] (5/325)) 1 tab Q6H PRN PO PAIN LEVEL 4 -6; Start 04/06/17 at 16:30 Lisinopril (Zestril) 5 mg DAILY PO Last administered on 04/07/17 08:53; Admin Dose 5 MG; Start 04/07/17 at 09:00; Status Future Hold Diltiazem HCl 10 mg 10 mg Q2H PRN IV HR>160; Start 04/06/17 at 17:00 Metronidazole (Flagyl 500 Mg (Pmx)) 100 ml @ 100 mls/hr Q8 IVPB Last administered on 04/12/17 13:37; Admin Dose 100 MLS/HR; Start 04/07/17 at 14:00 Gabapentin 300 mg 300 mg Q12 PRN PO Itching Last administered on 04/12/17 10: 21; Admin Dose 300 MG; Start 04/07/17 at 18:00 Ciprofloxacin/ Dextrose (Cipro Ivpb) 100 ml @ 100 mls/hr Q12 IVPB Last administered on 04/12/17 10:38; Admin Dose 100 MLS/HR; Start 04/08/17 at 21:00 Loratadine (Claritin) 10 mg DAILY PO Last administered on 04/12/17 09:13; Admin Dose 10 MG; Start 04/09/17 at 09:00 Ranitidine HCl (Zantac) 150 mg BID PO Last administered on 04/12/17 09:14; Admin Dose 150 MG; Start 04/08/17 at 21:00 Betamethasone Dipropion Augmented (Diprolene Af 0.05% Cr) 1 applic BID TOP Last administered on 04/12/17 10:39; Admin Dose 1 APPLIC; Start 04/08/17 at 21 :00 Bisoprolol Fumarate (Zebeta) 2.5 mg DAILY PO Last administered on 04/12/17 09 :12; Admin Dose 2.5 MG; Start 04/11/17 at 09:00 BRI SORIANO Apr 12, 2017 17:39
[2017-04-13] VITALS (12 sets, daily range): BP systolic 109–141; BP diastolic 58–73; PULSE 60–71; RESP 16–20
[2017-04-13] MEDS: metroNIDAZOLE 500 MG/NS (PMX) 100 ML IVPB SCH ×2 (05:31→13:59)
[2017-04-13] MEDS: LEVOTHYROXINE 100 MCG TAB PO SCH (06:09)
[2017-04-13] MEDS: RANITIDINE 150 MG TAB PO SCH (08:14)
[2017-04-13] MEDS: CIPROFLOXACIN 200 MG/D5W IVPB 100 ML IVPB SCH (08:14)
[2017-04-13] MEDS: LORATADINE 10 MG TAB PO SCH (08:14)
[2017-04-13] MEDS: BISOPROLOL 5 MG TAB PO SCH (08:15)
[2017-04-13] MEDS: BETAMETHASONE TOP SCH ×2 (08:17→08:18)
--- NOTE | 2017-04-13 10:42 | CONS ---
Date/Time of Note Date/Time of Note DATE: 04/13/17 TIME: 10:41 Assessment/Plan Assessment/Plan Chief Complaint/Hosp Course Presyncope: Likely vasovagal/orthostatic episode secondary to dehydration based on history and presentation. Diarrhea/colitis: ?viral gastroenteritis. Ruled out for c diff. [place] 04/10 showed colitis/ulcer Cardiomyopathy: EF 25% by echo previously, 52% by MRI. On echo here mild dysfunction ~45% in some views. Compensated by exam SVT: few beats of possible AT and has frequent PACs. Now improved on bisoprolol HTN -bisoprolol 2.5mg daily -d/c planning Problems: Consultation Date/Type/Reason Admit Date/Time Apr 06, 2017 at 15:27 Initial Consult Date 04/07/17 Type of Consultation: Cardiology Referring Provider: ARAM PAZ NP 24 HR Interval Summary Free Text/Dictation No o/n events. Feels well. Exam/Review of Systems Vital Signs Vitals Vital Signs Date Time Temp Pulse Resp B/P Pulse Ox O2 Delivery O2 Flow Rate FiO2 04/13/17 08:00 66 04/13/17 07:58 97.6 18 109/58 98 04/12/17 11:50 Room Air Nasal Cannula 04/10/17 20:06 12 04/10/17 01:06 21 Intake and Output 04/12/17 04/12/17 04/13/17 14:59 22:59 06:59 Intake Total 300 ml 800 ml 400 ml Output Total 550 ml Balance 300 ml 250 ml 400 ml Exam Constitutional: alert, oriented Psych: nl mood/affect, no complaints Head: atraumatic, normocephalic Neck: No jvd Respiratory: clear to auscultation, No crackles/rales Cardiovascular: regular rate and rhythm, No edema Gastrointestinal: soft Neurological: nl mental status Results Result Diagram: 04/11/17 0733 04/11/17732 Medications Medications Current Medications Ondansetron HCl (Zofran Inj) 4 mg Q6H PRN IV NAUSEA AND/OR VOMITING; Start 04/06/17 at 16:30 Acetaminophen (Tylenol Tab) 650 mg Q6H PRN PO PAIN LEVEL 1-3 OR FEVER; Start 04/06/17 at 16:30 Acetaminophen/ Hydrocodone Bitart ([place] (5/325)) 1 tab Q6H PRN PO PAIN LEVEL 4 -6; Start 04/06/17 at 16:30 Lisinopril (Zestril) 5 mg DAILY PO Last administered on 04/07/17 08:53; Admin Dose 5 MG; Start 04/07/17 at 09:00; Status Future Hold Diltiazem HCl 10 mg 10 mg Q2H PRN IV HR>160; Start 04/06/17 at 17:00 Metronidazole (Flagyl 500 Mg (Pmx)) 100 ml @ 100 mls/hr Q8 IVPB Last administered on 04/13/17 05:31; Admin Dose 100 MLS/HR; Start 04/07/17 at 14:00 Gabapentin 300 mg 300 mg Q12 PRN PO Itching Last administered on 04/12/17 22: 17; Admin Dose 300 MG; Start 04/07/17 at 18:00 Ciprofloxacin/ Dextrose (Cipro Ivpb) 100 ml @ 100 mls/hr Q12 IVPB Last administered on 04/13/17 08:14; Admin Dose 100 MLS/HR; Start 04/08/17 at 21:00 Loratadine (Claritin) 10 mg DAILY PO Last administered on 04/13/17 08:14; Admin Dose 10 MG; Start 04/09/17 at 09:00 Ranitidine HCl (Zantac) 150 mg BID PO Last administered on 04/13/17 08:14; Admin Dose 150 MG; Start 04/08/17 at 21:00 Betamethasone Dipropion Augmented (Diprolene Af 0.05% Cr) 1 applic BID TOP Last administered on 04/12/17 20:32; Admin Dose 1 APPLIC; Start 04/08/17 at 21 :00 Bisoprolol Fumarate (Zebeta) 2.5 mg DAILY PO Last administered on 04/13/17 08 :15; Admin Dose 2.5 MG; Start 04/11/17 at 09:00 BRI SORIANO Apr 13, 2017 10:42
--- NOTE | 2017-04-13 12:22 | PDOCDIS ---
Discharge Instructions DIAGNOSIS Discharge Diagnosis 1. Near syncope. Likely from underlying vasovagal response 2. Paroxysmal atrial tachycardia and frequent PVC. 3. Diarrhea. 4. Essential hypertension. 5. Hypothyroidism. 6. Acute nonoliguric kidney disease. 7. Cardiomyopathy with EF of 45%. 8. Prediabetes. A1c seen at 6.1. 9. Transient hypoxic episode. 10. Chronic dermatitis. CONDITION Patient Condition: Stable HOME CARE INSTRUCTIONS: Special Diet: 2g sodium diet FOLLOW UP/APPOINTMENTS Follow-up Plan 1. Follow up with Dr. Swapnil Phillips in one week DENIS ROCKWELL Apr 13, 2017 12:22
--- NOTE | 2017-04-13 14:42 | PN ---
Date/Time of Note Date/Time of Note DATE: 04/13/17 TIME: 14:42 Assessment/Plan Lines/Catheters IV C[facility]ter Type (from [facility]): Peripheral IV Urinary Cath still in place: No Assessment/Plan Chief Complaint/Hosp Course Assessment and plan 1. Near syncope. Likely from underlying vasovagal response due to patient having multiple episodes of diarrhea. Patient did have brain CT and MRI was negative for any acute findings. Carotid Doppler was also negative for any hemodynamically significant stenosis. Ejection fraction was seen at 45% per echocardiogram. Patient was seen by neurologist and no further neurologist workup recommended. 2. Paroxysmal atrial tachycardia and frequent PVC. Network Systems Engineer following. Keep magnesium and potassium levels at optimal levels.noted with cardiac pause today. follow up with resident inspector recs 3. Diarrhea. Etiology unknown. CT scan showing some colitis. Continue antibiotics. Stool C. difficile is negative for any C. difficile. Status post colonoscopy with findings showing Pseudomonas in the stool. No further reports of diarrhea at this time. Will monitor for now. Of note patient was prescribed mesalamine but unable to take medication due to pill size. Per negative retoucher no critical need for medication at this time. Will follow up and consider restarting if persists with diarrhea. 4. Essential hypertension. Continue antihypertensives and dyspnea 5. Hypothyroidism. Continue Synthroid 6. Acute nonoliguric kidney disease. Avoid nephrotoxic medications. Renal ultrasound showing evidence of CKD. Monitor renal panel for now. 7. Cardiomyopathy with EF of 45%. Continue on RONY inhibitor. RONY inhibitor on hold due to a renal dysfunction. 8. Prediabetes. A1c seen at 6.1. Monitor for now. 9. Transient hypoxic episode. CTA was negative for any pulmonary embolism. Improved at present. Provide with O2 as needed. 10. Chronic dermatitis. Patient for outpatient dermatology consultation. Disposition plan: 12 lead ekg ordered. follow up with resident inspector recs Discussed plan of care with Dr. Lawson Problems: Exam/Review of Systems Vital Signs Vitals Vital Signs Date Time Temp Pulse Resp B/P Pulse Ox O2 Delivery O2 Flow Rate FiO2 04/13/17 12:00 63 04/13/17 11:31 97.9 16 141/67 98 04/12/17 11:50 Room Air Nasal Cannula 04/10/17 20:06 12 04/10/17 01:06 21 Intake and Output 04/12/17 04/12/1717 15:00 23:00 07:00 Intake Total 300 ml 800 ml 400 ml Output Total 550 ml Balance 300 ml 250 ml 400 ml Results Result Diagram: 04/11/1733 04/11/17732 Medications Medications Current Medications Ondansetron HCl (Zofran Inj) 4 mg Q6H PRN IV NAUSEA AND/OR VOMITING; Start 04/06/17 at 16:30 Acetaminophen (Tylenol Tab) 650 mg Q6H PRN PO PAIN LEVEL 1-3 OR FEVER; Start 04/06/17 at 16:30 Acetaminophen/ Hydrocodone Bitart ([place] (5/325)) 1 tab Q6H PRN PO PAIN LEVEL 4 -6; Start 04/06/17 at 16:30 Lisinopril (Zestril) 5 mg DAILY PO Last administered on 04/07/17 08:53; Admin Dose 5 MG; Start 04/07/17 at 09:00; Status Future Hold Diltiazem HCl 10 mg 10 mg Q2H PRN IV HR>160; Start 04/06/17 at 17:00 Metronidazole (Flagyl 500 Mg (Pmx)) 100 ml @ 100 mls/hr Q8 IVPB Last administered on 04/13/17 13:59; Admin Dose 100 MLS/HR; Start 04/07/17 at 14:00 Gabapentin 300 mg 300 mg Q12 PRN PO Itching Last administered on 04/12/17 22: 17; Admin Dose 300 MG; Start 04/07/17 at 18:00 Ciprofloxacin/ Dextrose (Cipro Ivpb) 100 ml @ 100 mls/hr Q12 IVPB Last administered on 04/13/17 08:14; Admin Dose 100 MLS/HR; Start 04/08/17 at 21:00 Loratadine (Claritin) 10 mg DAILY PO Last administered on 04/13/17 08:14; Admin Dose 10 MG; Start 04/09/17 at 09:00 Ranitidine HCl (Zantac) 150 mg BID PO Last administered on 04/13/17 08:14; Admin Dose 150 MG; Start 04/08/17 at 21:00 Betamethasone Dipropion Augmented (Diprolene Af 0.05% Cr) 1 applic BID TOP Last administered on 04/12/17 20:32; Admin Dose 1 APPLIC; Start 04/08/17 at 21 :00 Bisoprolol Fumarate (Zebeta) 2.5 mg DAILY PO Last administered on 04/13/17t 08 :15; Admin Dose 2.5 MG; Start 04/11/17 at 09:00 DENIS ROCKWELL Apr 13, 2017 14:42
--- NOTE | 2017-04-13 15:09 | PN ---
Date/Time of Note Date/Time of Note DATE: 04/13/17 TIME: 15:04 Assessment/Plan VTE Prophylaxis VTE Prophylaxis Intervention: SCD's Lines/Catheters IV Catheter Type (from Nrs): Peripheral IV Urinary Cath still in place: No Assessment/Plan Chief Complaint/Hosp Course Assessment: Significant diarrhea/improved/ischemic colitis Colonoscopy 04/10/17 * Segmental sigmoid and descending colitis with ulceration. Consistent with ischemic bowel. Biopsies obtained * Otherwise normal colonoscopy to cecum * Normal terminal ileum * Moderate-sized internal hemorrhoid Sigmoid colon bx: * Compatible with ischemic colitis- no evidence of dysplasia or malignancy Near syncopal episode Paroxysmal atrial tachycardia with frequent PVCs/cardiology involved Hypertension Hypothyroidism Acute renal failure History of prediabetes Mild rhabdomyolysis Chronic dermatitis Plan: Stool positive for pseudomonas Continue antibiotics for full regimen then stop Sigmoid colon bx compatible with ischemic colitis Ct angio abdomen/pelvis negative for critical lesions Cleared from GI point of view Consider repeat colonoscopy in the next 6 months Follow up as out-patient 2-4 weeks Patient seen in collaboration with Dr. Barragan Subjective: Course reviewed with nursing staff Patient interviewed and examined All labs, imaging and other results reviewed The patient is feeling a little better,family at bedside Denies abd pain, nausea, vomiting, rectal bleeding, x1 loose stool will continue to monitor Plan is for patient to be d/c'd to hospital rehab Problems: Exam/Review of Systems Vital Signs Vitals Vital Signs Date Time Temp Pulse Resp B/P Pulse Ox O2 Delivery O2 Flow Rate FiO2 04/13/17 12:00 63 04/13/17 11:31 97.9 16 141/67 98 04/12/17 11:50 Room Air Nasal Cannula 04/10/17 20:06 12 04/10/17 01:06 21 Intake and Output 04/12/17 04/12/17 04/13/17 15:00 23:00 07:00 Intake Total 300 ml 800 ml 400 ml Output Total 550 ml Balance 300 ml 250 ml 400 ml Results Result Diagram: 04/11/17 0733 04/11/17732 Medications Medications Current Medications Ondansetron HCl (Zofran Inj) 4 mg Q6H PRN IV NAUSEA AND/OR VOMITING; Start 04/06/17 at 16:30 Acetaminophen (Tylenol Tab) 650 mg Q6H PRN PO PAIN LEVEL 1-3 OR FEVER; Start 04/06/17 at 16:30 Acetaminophen/ Hydrocodone Bitart ([place] (5/325)) 1 tab Q6H PRN PO PAIN LEVEL 4 -6; Start 04/06/17 at 16:30 Lisinopril (Zestril) 5 mg DAILY PO Last administered on 04/07/17 08:53; Admin Dose 5 MG; Start 04/07/17 at 09:00; Status Future Hold Diltiazem HCl 10 mg 10 mg Q2H PRN IV HR>160; Start 04/06/17 at 17:00 Metronidazole (Flagyl 500 Mg (Pmx)) 100 ml @ 100 mls/hr Q8 IVPB Last administered on 04/13/17 13:59; Admin Dose 100 MLS/HR; Start 04/07/17 at 14:00 Gabapentin 300 mg 300 mg Q12 PRN PO Itching Last administered on 04/12/17 22: 17; Admin Dose 300 MG; Start 04/07/17 at 18:00 Ciprofloxacin/ Dextrose (Cipro Ivpb) 100 ml @ 100 mls/hr Q12 IVPB Last administered on 04/13/17 08:14; Admin Dose 100 MLS/HR; Start 04/08/17 at 21:00 Loratadine (Claritin) 10 mg DAILY PO Last administered on 04/13/17 08:14; Admin Dose 10 MG; Start 04/09/17 at 09:00 Ranitidine HCl (Zantac) 150 mg BID PO Last administered on 04/13/17 08:14; Admin Dose 150 MG; Start 04/08/17 at 21:00 Betamethasone Dipropion Augmented (Diprolene Af 0.05% Cr) 1 applic BID TOP Last administered on 04/12/17 20:32; Admin Dose 1 APPLIC; Start 04/08/17 at 21 :00 Bisoprolol Fumarate (Zebeta) 2.5 mg DAILY PO Last administered on 04/13/17 08 :15; Admin Dose 2.5 MG; Start 04/11/17 at 09:00 MOSES VALLADARES Apr 13, 2017 15:09
--- NOTE | 2017-04-14 15:59 | RADRPT ---
Vent Rate: 64 bpm RR Interval: 0 msec NV Interval: 162 msec QRS Duration: 132 msec QT Interval: 458 msec QTC Interval: 472 msec P-R-T [place]: 36 - -34 - 69 degrees Sinus rhythm with marked sinus arrhythmia Left axis deviation Left bundle branch block Abnormal ECG Electronically Signed By: Lam Luz [id number]
== END 2017-04-13 20:05 | DRG 386 ==
LOC: E/R 13:50 → TEL 15:27
PROVIDERS: ADMIT Internal Medicine; ATTEND Internal Medicine
PROC: 0DBM8ZX Excision of Descending Colon, Via Natural or Artificial Opening Endoscopic, Diagnostic (ICD-10-PCS; principal; 2017-04-10 20:00)
DX: K51.90 Ulcerative colitis, unspecified, without complications (principal); N17.9 Acute kidney failure, unspecified; K55.9 Vascular disorder of intestine, unspecified; I42.9 Cardiomyopathy, unspecified; M62.82 Rhabdomyolysis; I13.0 Hypertensive heart and chronic kidney disease with heart failure and stage 1 through stage 4 chronic kidney disease, or unspecified chronic kidney disease; I47.1 Supraventricular tachycardia; I50.9 Heart failure, unspecified; E86.0 Dehydration; I95.1 Orthostatic hypotension; B96.5 Pseudomonas (aeruginosa) (mallei) (pseudomallei) as the cause of diseases classified elsewhere; I49.3 Ventricular premature depolarization; E03.9 Hypothyroidism, unspecified; L30.9 Dermatitis, unspecified; N18.9 Chronic kidney disease, unspecified; R73.03 Prediabetes; R09.02 Hypoxemia; K64.8 Other hemorrhoids; Z96.641 Presence of right artificial hip joint
CPT/HCPCS: 36415; 70450; 70551; 71010; 71275; 74176; 75635; 76775; 80048; 80053; 80061; 81001; 81003; 82043; 82232; 82550; 82553; 83036; 83605; 83735; 83880; 84100; 84155; 84300; 84439; 84443; 84484; 85025; 85378; 85610; 85730; 86674; 86850; 86900; 86901; 87040; 87045; 87075; 87081; 87086; 88305; 93005; 93306; 93880; 94664; 96374; 96375; 97110; 97116; 97162; 97530; J0696; J0744; J1200; J2405; J3475; J7030; Q9967

== ENCOUNTER 2017-04-13 18:47 | Inpatient (IN) | payer MEDICARE, BC ==
[~2017-04-13] VITALS: Ht 157.5 cm; Wt 51.5 kg
[~2017-04-13 18:47] MED LIST: ASA400 PO; BETA50CR5 TP; BISO5TAB21 PO; GABA300C16 PO; LEVO100T87 PO; LORA10TA3 PO; RANI150T5 PO
[2017-04-13 22:00] VITALS: Ht 157.5 cm; Wt 51.5 kg
[2017-04-13 22:07] VITALS: BP 140/62; PULSE 67; RESP 18
[2017-04-13] MEDS: RANITIDINE 150 MG TAB PO SCH (22:21)
[2017-04-14] MEDS: GABAPENTIN 300 MG CAP PO PRN ×2 (01:15→07:03)
[2017-04-14] MEDS ORDERED: BISACODYL 10 MG SUPP PR PRN (01:30)
[2017-04-14] MEDS ORDERED: LACTULOSE 30ML CUP PO PRN (01:30)
[2017-04-14] MEDS ORDERED: MAGNESIUM HYDROXIDE 30ML CUP PO PRN (01:30)
[2017-04-14] MEDS ORDERED: ACETAMINOPHEN 325 MG TAB PO PRN (01:30)
[2017-04-14 02:00] VITALS: BP 103/58; PULSE 58; RESP 16
[2017-04-14 02:06] LABS: ADD UMIC YES; UR ASCORBIC ACID NEGATIVE (NEGATIVE); UR BILIRUBIN (Dip) NEGATIVE (NEGATIVE); UR BLOOD (Dip) 2+ mg/dL (NEGATIVE); UR CLARITY CLEAR (CLEAR); UR COLOR YELLOW (YELLOW); UR GLUCOSE (Dip) NEGATIVE (NEGATIVE); UR KETONES (Dip) NEGATIVE (NEGATIVE); UR LEUKOCYTE ESTERASE (Dip) 2+ Leu/ul (NEGATIVE); UR NITRITE (Dip) NEGATIVE (NEGATIVE); UR RBC 15 /HPF (0-5); UR SPECIFIC GRAVITY (Dip) 1.005 (1.003-1.030); UR TOTAL PROTEIN (Dip) NEGATIVE (NEGATIVE); UR UROBILINOGEN (Dip) NEGATIVE (NEGATIVE)
[2017-04-14] MEDS: LEVOTHYROXINE 100 MCG TAB PO SCH (06:50)
[2017-04-14 07:11] LABS: BASOPHILS % 0.9 % (0.0-2.0); EOSINOPHILS # 0.4 10^3/ul (0.0-0.5); EOSINOPHILS % 9.8 % (0.0-7.0); HEMATOCRIT 29.8 % (37.0-47.0); HEMOGLOBIN 9.3 g/dl (12.0-16.0); LYMPHOCYTES % 22.6 % (15.0-51.0); MEAN CORPUSCULAR HEMOGLOBIN 29.9 pg (29.0-33.0); MEAN CORPUSCULAR HGB CONC 31.2 g/dl (32.0-37.0); MEAN CORPUSCULAR VOLUME 95.8 fl (82.0-101.0); MEAN PLATELET VOLUME 9.3 fl (7.4-10.4); MONOCYTE # 0.6 10^3/ul (0.3-0.9); MONOCYTES % 13.5 % (0.0-11.0); NEUTROPHIL # 2.3 10^3/ul (1.6-7.5); NEUTROPHILS % 52.1 % (39.0-77.0); PLATELET COUNT 228 10^3/UL (140-415); RED BLOOD COUNT 3.11 10^6/ul (4.20-5.40); RED CELL DISTRIBUTION WIDTH 14.8 % (11.5-14.5); WHITE BLOOD COUNT 4.4 10^3/ul (4.8-10.8)
[2017-04-14 07:30] VITALS: BP 116/61; RESP 18
[2017-04-14 07:37] LABS: ALBUMIN 2.6 g/dl (3.3-4.9); BILIRUBIN,INDIRECT 0.2 mg/dl (0-1.1); BILIRUBIN,TOTAL 0.2 mg/dl (0.2-1.3); CALCIUM 8.2 mg/dl (8.4-10.2); CREATININE 0.75 mg/dl (0.44-1.00); POTASSIUM 3.6 mmol/L (3.5-5.1); TOTAL PROTEIN 5.2 g/dl (6.1-8.1)
[2017-04-14] MEDS: DOCUSATE SODIUM 100 MG CAP PO SCH ×3 (08:53→20:10)
[2017-04-14] MEDS: LORATADINE 10 MG TAB PO SCH (08:56)
[2017-04-14] MEDS: RANITIDINE 150 MG TAB PO SCH ×2 (08:56→20:09)
[2017-04-14] MEDS: BISOPROLOL 5 MG TAB PO SCH (08:58)
[2017-04-14] MEDS: BETAMETHASONE TOP SCH ×2 (08:59→20:10)
--- NOTE | 2017-04-14 09:04 | CONS ---
DATE OF ADMISSION: 04/13/2017 DATE OF CONSULTATION: 04/14/2017 REHABILITATION POST ADMISSION PHYSICIAN EVALUATION REHABILITATION IMPAIRMENT CATEGORY: Debility due to ischemic colitis and orthostatic hypotension. ACTIVE COMORBIDITIES: 1. Status post vasovagal. 2. Acute kidney disease. 3. Cardiomyopathy. 4. Mild rhabdomyolysis. 5. Resting tremor. 6. Hypertension. 7. Hypothyroidism. 8. Prediabetes. 9. Impairments in self-care and mobility. HISTORY OF PRESENT ILLNESS: The patient is a pleasant 82-year-old female with a history of hypertension, hypothyroidism, and cardiomyopathy who was admitted after episode of near syncope while in a restaurant. The patient's blood pressure in the field was reportedly 50/30. She was noted to have extensive loose stools, dizziness and generalized weakness. GI workup did reveal ischemic colitis. The patient's hospital course was also notable for premature supraventricular complexes and incomplete left bundle branch block. The patient noted to have significant impairments in self-care and mobility as compared to baseline, and has been cleared to transfer to the rehabilitation unit for comprehensive interdisciplinary rehab care. FUNCTIONAL HISTORY: Prior to recent events, she was independent in self-care tasks and mobility. Currently, she requires minimal to moderate assist for self -care and mobility tasks. I have reviewed the preadmission screen and the patient's current functional status is consistent with the preadmission screen. SOCIAL HISTORY: The patient lives with her at home and hopes to return there upon discharge. PAST MEDICAL HISTORY: 1. Dermatitis. 2. Cardiomyopathy. 3. Resting tremors. CURRENT MEDICATIONS: 1. Zebeta 2.5 p.o. daily. 2. Neurontin 300 mg b.i.d. 3. Shirley p.r.n. 4. Levothyroxine 100 mcg p.o. q.a.m. 5. Ranitidine 150 b.i.d. ALLERGIES: 1. MORPHINE 2. CARVEDILOL. PHYSICAL EXAMINATION: VITAL SIGNS: The patient is currently afebrile with stable vital signs. HEENT: Extraocular motions intact. Oropharynx clear. NECK: Supple. LUNGS: Clear anteriorly. CARDIAC: S1, S2. ABDOMEN: Soft, nontender, positive bowel sounds. NEUROLOGIC: She is awake and alert and oriented x3. She can follow simple 1- step commands. Cranial nerves are grossly intact. She has antigravity strength in bilateral upper extremity and lower extremity. She does have some impaired dynamic balance. PLAN: The patient has been admitted for comprehensive interdisciplinary acute rehab and is anticipated to tolerate 3 hours of daily therapy in divided doses for at least 5/7 days a week. The treatment plan will include: 1. Physical therapy to focus on bed mobility, transfers, and household ambulation with the goal of having the patient reach standby assist level. 2. Occupational therapy to focus on hygiene, grooming, dressing, bathing, and toileting activities with the goal of having the patient reach standby assist level. 3. Rehabilitation nursing for carryover of therapeutic interventions, the goal of continent of bowel and bladder, and the goal of skin integrity improved. BARRIER: Dermatitis. INTERVENTION FOR BARRIER: Continue current medications and skin care. ESTIMATED LENGTH OF STAY: 10 days. DISPOSITION GOAL: Home. I acknowledge that I performed a full physical examination on this patient within 24 hours of admission to the rehabilitation unit. I believe the patient is a good candidate for comprehensive interdisciplinary rehab care and is anticipated to make reasonable goals in a reasonable period of time as outlined above. Dictated By: FELICIA EDWARD/ALEXANDRA Conf#: [id number] DID#: [id number] MARS
--- NOTE | 2017-04-14 12:19 | CONS ---
Date/Time of Note Date/Time of Note DATE: 04/14/17 TIME: 12:05 Assessment/Plan Assessment/Plan Chief Complaint/Hosp Course 82-year-old female who was transferred to acute rehabilitation unit from [facility] after being evaluated for ischemic colitis, near syncopal episode for further complex interdisciplinary rehab care. 1. Status post Near syncope likely secondary to vasovagal/dehydration. -Continue to monitor. 2. Paroxysmal atrial tachycardia and frequent PVC. -Status post cardiology evaluation. -Continue Zebeta, Monitor lites closely. 3. Segmental sigmoid and descending colitis with ulceration with ischemic colitis. Currently no further diarrhea. -Status post treatment with Cipro plus Flagyl. Of note, patient was unable to tolerate mesalamine. 4. Essential hypertension. stable. - Continue antihypertensives 5. Hypothyroidism. -Continue Synthroid 6. Cardiomyopathy with EF of 45%. -Continue medical optimization. 7. Prediabetes. A1c 6.1. -Monitor. Lifestyle modification advised. 8. Chronic dermatitis. -Recommend outpatient dermatology consultation. Plan: Follow-up with the urine culture and will start antibiotics if indicated. Currently patient asymptomatic. Prophylaxis: Ambulation/SCD/H2 blockers Patient was seen in collaboration with . Approximately 60 minutes was spent on this consultation. Problems: Consultation Date/Type/Reason Admit Date/Time Apr 13, 2017 at 21:09 Type of Consultation: Internal medicine Hx of Present Illness This is a 82-year-old female with a past medical history of cardiomyopathy, hypothyroidism, hypertension, who was initially admitted at [facility] for evaluation of near syncope while he was in a restaurant. During the course of hospitalization at [facility], patient was also noted with premature atrial complex tachycardia and incomplete left bundle branch block. Patient was evaluated by cardiology and he was started on beta- blockers. His EF was 45%. As per cardiology, likely cause of near syncope possibly dehydration/orthostasis/possible vasovagal. Patient was also noted with watery diarrhea and therefore he was evaluated by GI colleagues and had colonoscopy which revealed ischemic colitis. Patient was treated with Cipro and Flagyl. Recommendation was to start Mesalamine, however patient was unable to tolerate the medication. Therefore, as per GI recommendation, there was no acute need for the medication and can be started if the patient is having diarrhea flares. He was also evaluated by nephrology for acute kidney injury which was possibly secondary to dehydration and hemodynamics and was resolved. Patient was then evaluated by physical therapy and he continued to have impairment in self-care and mobility. Therefore, he was accepted to acute rehabilitation unit for further competency interdisciplinary rehab care. At my encounter with the patient, she denied chest pain, palpitation, shortness of breath, nausea, vomiting, abdominal discomfort, diarrhea, headache, bowel or bladder irregularities or other focal deficit. Vital signs within acceptable range. Initial labs with hemoglobin 9.3. Urinalysis positive for leukocyte esterase, and few WBCs. A 12 point review of system was assessed and is negative other than what is mentioned in the HPI. Past Medical History See HPI Past Surgical History See HPI Past Surgical Hx: other Social History Denied history of alcohol, smoking or illicit drug use. Exam/Review of Systems Vital Signs Vitals Vital Signs Date Time Temp Pulse Resp B/P Pulse Ox O2 Delivery O2 Flow Rate FiO2 04/14/17 07:30 97.9 63 18 116/61 94 04/14/17 02:00 Room Air Intake and Output 04/13/17 04/13/17 04/14/17 15:00 23:00 07:00 Intake Total 300 ml Output Total 300 ml Balance 0 ml Exam General: Elderly female, not in any acute distress . HEENT: Normocephalic, Atraumatic, No laceration or hematoma; Eyes: PEERL, Conjunctiva clear, Anicteric sclera Neck: Supple without any lymphadenopathy, nontender, no JVD, no carotid bruits, trachea midline, no thyromegaly Cardiac: S1, S2 auscultated, regular rhythm and rate, no mumurs or gallop Pulmonary: Normal respiratory effort. Chest clear to auscultation bilaterally, no adventitious breath sounds GI: Abdomen normal to inspection. Soft, non tender, non- distended, no masses, no rebound tenderness or guarding. Bowel sounds active on all four quadrants Genitourinary: Deferred Extremities: No cyanosis, clubbing, or edema. Pulses [2+] bilaterally. Full ROM on all four extremities. No focal weakness appreciated. Neurologic: Alert to person, place, time, and situation. Affect appropriate, intact sensation. Skin: With chronic skin rashes on bilateral lower extremities. Clean,dry, and intact. No ecchymosis, no rashes, or lesions Results Result Diagram: 04/14/17 0647 04/14/17 0647 Results 24 hrs Laboratory Tests Test 04/14/17 01:00 04/14/17 06:47 Urine Color YELLOW Urine Clarity CLEAR Urine pH 6.0 Urine Specific [place] 1.005 Urine Ketones NEGATIVE Urine Nitrite NEGATIVE Urine Bilirubin NEGATIVE Urine Urobilinogen NEGATIVE Urine Leukocyte Esterase 2+ H Urine Microscopic RBC 15 H Urine Microscopic WBC 8 H Urine Hemoglobin 2+ H Urine Glucose NEGATIVE Urine Total Protein NEGATIVE White Blood Count 4.4 L Red Blood Count 3.11 L Hemoglobin 9.3 L Hematocrit 29.8 L Mean Corpuscular Volume 95.8 Mean Corpuscular Hemoglobin 29.9 Mean Corpuscular Hemoglobin Concent 31.2 L Red Cell Distribution Width 14.8 H Platelet Count 228 Mean Platelet Volume 9.3 Neutrophils % 52.1 Lymphocytes % 22.6 Monocytes % 13.5 H Eosinophils % 9.8 H Basophils % 0.9 Nucleated Red Blood Cells % 0.0 Neutrophils # 2.3 Lymphocytes # 1.0 Monocytes # 0.6 Eosinophils # 0.4 Basophils # 0.0 Nucleated Red Blood Cells # 0.0 Sodium Level 140 Potassium Level 3.6 Chloride Level 107 Carbon Dioxide Level 29 Anion Gap 8 Blood Urea Nitrogen 8 Creatinine 0.75 Glucose Level 85 Calcium Level 8.2 L Total Bilirubin 0.2 Direct Bilirubin 0.00 Indirect Bilirubin 0.2 Aspartate Amino Transf (AST/SGOT) 24 Alanine Aminotransferase (ALT/SGPT) 29 Alkaline Phosphatase 55 Total Protein 5.2 L Albumin 2.6 L Globulin 2.60 Albumin/Globulin Ratio 1.00 Medications Medications Current Medications Levothyroxine Sodium (Synthroid) 100 mcg DAILY@06 PO Last administered on 04/14 06:50; Admin Dose 100 MCG; Start 04/14/17 at 06:00 Loratadine (Claritin) 10 mg DAILY PO Last administered on 04/14/17 08:56; Admin Dose 10 MG; Start 04/14/17 at 09:00 Ranitidine HCl (Zantac) 150 mg BID PO Last administered on 04/14/17 08:56; Admin Dose 150 MG; Start 04/13/17 at 22:06 Acetaminophen/ Hydrocodone Bitart ([place] (5/325)) 1 tab Q6H PRN PO PAIN; Start 04/13/17 at 22:00 Bisoprolol Fumarate (Zebeta) 2.5 mg DAILY PO Last administered on 04/14/17 08 :58; Admin Dose 2.5 MG; Start 04/14/17 at 09:00 Betamethasone Dipropion Augmented (Diprolene Af 0.05% Cr) 1 applic BID TOP Last administered on 04/14/17 08:59; Admin Dose 1 APPLIC; Start 04/14/17 at 09:00 Docusate Sodium (Colace) 100 mg BID PO ; Start 04/14/17 at 09:00 Senna (Senokot) 1 tab HS PO ; Start 04/14/17 at 21:00 Acetaminophen (Tylenol Tab) 650 mg Q4H PRN PO PAIN; Start 04/14/17 at 01:30 Bisacodyl (Dulcolax Supp) 10 mg DAILY PRN [place] CONSTIPATION; Start 04/14/17 at 01:30 Magnesium Hydroxide (Milk Of Mag) 30 ml BID PRN PO CONSTIPATION; Start at 01:30 Lactulose (Enulose) 20 gm DAILY PRN PO CONSTIPATION; Start 04/14/17 at 01:30 Gabapentin (Neurontin) 300 mg BID PO ; Start 04/14/17 at 21:00 NICOLÁS ROWLEY NP Apr 14, 2017 12:17 NICOLÁS ROWLEY NP Apr 14, 2017 12:17
[2017-04-14 19:52] VITALS: BP 108/56; PULSE 69; RESP 16
[2017-04-14] MEDS: SENNA TAB PO SCH ×2 (20:09→20:10)
[2017-04-14] MEDS: GABAPENTIN 300 MG CAP PO SCH (20:09)
[2017-04-15] MEDS: LEVOTHYROXINE 100 MCG TAB PO SCH (05:24)
[2017-04-15] MEDS: GABAPENTIN 300 MG CAP PO SCH ×3 (05:29→20:25)
[2017-04-15 07:54] VITALS: BP 100/53; PULSE 62; RESP 16
[2017-04-15] MEDS: RANITIDINE 150 MG TAB PO SCH ×2 (08:07→20:25)
[2017-04-15] MEDS: LORATADINE 10 MG TAB PO SCH (08:07)
[2017-04-15] MEDS: BETAMETHASONE TOP SCH ×2 (08:08→20:26)
[2017-04-15] MEDS: BISOPROLOL 5 MG TAB PO SCH (08:08)
[2017-04-15 08:09] VITALS: BP 131/66; PULSE 62; RESP 16
--- NOTE | 2017-04-15 11:27 | CONS ---
Date/Time of Note Date/Time of Note DATE: 04/15/17 TIME: 11:22 Assessment/Plan Assessment/Plan Chief Complaint/Hosp Course 1. Status post Near syncope likely secondary to vasovagal/dehydration.Stable. -Continue to monitor. 2. Paroxysmal atrial tachycardia and frequent PVC. -Status post cardiology evaluation. -Continue Zebeta, Monitor lites closely. 3. Segmental sigmoid and descending colitis with ulceration with ischemic colitis. no further diarrhea. -Status post treatment with Cipro plus Flagyl. Of note, patient was unable to tolerate mesalamine. 4. Essential hypertension. stable. - Continue antihypertensives 5. Hypothyroidism. -Continue Synthroid 6. Cardiomyopathy with EF of 45%. -Continue medical optimization. 7. Prediabetes. A1c 6.1. -Monitor. Lifestyle modification advised. 8. Chronic dermatitis. -Recommend outpatient dermatology consultation. Plan: Reviewed Urine CS.Likely contamination. No need for treatment. Prophylaxis: Ambulation/SCD/H2 blockers Patient was seen in collaboration with . Problems: Consultation Date/Type/Reason Admit Date/Time Apr 13, 2017 at 21:09 Initial Consult Date Type of Consultation: Internal medicine 24 HR Interval Summary Free Text/Dictation Patient sitting in chair. Had 1 episode of loose stool today. Exam/Review of Systems Vital Signs Vitals Vital Signs Date Time Temp Pulse Resp B/P Pulse Ox O2 Delivery O2 Flow Rate FiO2 04/15/17 08:09 62 16 131/66 97 Room Air 04/15/17 07:54 98.3 Intake and Output 04/14/17 04/14/17 04/15/17 15:00 23:00 07:00 Intake Total 300 ml 200 ml Balance 300 ml 200 ml Exam General: Elderly female, not in any acute distress . HEENT: Normocephalic, Atraumatic, No laceration or hematoma; Eyes: PEERL, Conjunctiva clear, Anicteric sclera Neck: Supple without any lymphadenopathy, nontender, no JVD, no carotid bruits, trachea midline, no thyromegaly Cardiac: S1, S2 auscultated, regular rhythm and rate, no mumurs or gallop Pulmonary: Normal respiratory effort. Chest clear to auscultation bilaterally, no adventitious breath sounds GI: Abdomen normal to inspection. Soft, non tender, non- distended, no masses, no rebound tenderness or guarding. Bowel sounds active on all four quadrants Genitourinary: Deferred Extremities: No cyanosis, clubbing, or edema. Pulses [2+] bilaterally. Full ROM on all four extremities. No focal weakness appreciated. Neurologic: Alert to person, place, time, and situation. Affect appropriate, intact sensation. Skin: With chronic skin rashes on bilateral lower extremities. Clean,dry, and intact. No ecchymosis, no rashes, or lesions Results Result Diagram: 04/14/1764604/14/17646 Medications Medications Current Medications Levothyroxine Sodium (Synthroid) 100 mcg DAILY@06 PO Last administered on 04/15 05:24; Admin Dose 100 MCG; Start 04/14/17 at 06:00 Loratadine (Claritin) 10 mg DAILY PO Last administered on 04/15/17 08:07; Admin Dose 10 MG; Start 04/14/17 at 09:00 Ranitidine HCl (Zantac) 150 mg BID PO Last administered on 04/15/17 08:07; Admin Dose 150 MG; Start 04/13/17 at 22:06 Acetaminophen/ Hydrocodone Bitart ([place] (5/325)) 1 tab Q6H PRN PO PAIN; Start 04/13/17 at 22:00 Bisoprolol Fumarate (Zebeta) 2.5 mg DAILY PO Last administered on 04/15/17 08 :08; Admin Dose 2.5 MG; Start 04/14/17 at 09:00 Betamethasone Dipropion Augmented (Diprolene Af 0.05% Cr) 1 applic BID TOP Last administered on 04/15/17 08:08; Admin Dose 1 APPLIC; Start 04/14/17 at 09:00 Docusate Sodium (Colace) 100 mg BID PO Last administered on 04/14/17 20:09; Admin Dose 100 MG; Start 04/14/17 at 09:00 Senna (Senokot) 1 tab HS PO Last administered on 04/14/17 20:09; Admin Dose 1 TAB; Start 04/14/17 at 21:00 Acetaminophen (Tylenol Tab) 650 mg Q4H PRN PO PAIN; Start 04/14/17 at 01:30 Bisacodyl (Dulcolax Supp) 10 mg DAILY PRN [place] CONSTIPATION; Start 10/13/17 at 01:30 Magnesium Hydroxide (Milk Of Mag) 30 ml BID PRN PO CONSTIPATION; Start at 01:30 Lactulose (Enulose) 20 gm DAILY PRN PO CONSTIPATION; Start 04/14/17 at 01:30 Gabapentin (Neurontin) 300 mg BID@06,20 PO ; Start 04/15/17 at 06:00 NICOLÁS ROWLEY NP Apr 15, 2017 11:27
[2017-04-15 14:00] VITALS: BP 114/57; PULSE 60; RESP 18
[2017-04-15 19:56] VITALS: BP 103/55; PULSE 66; RESP 16
[2017-04-15] MEDS: DOCUSATE SODIUM 100 MG CAP PO SCH (20:27)
[2017-04-15] MEDS: SENNA TAB PO SCH (20:27)
[2017-04-16 02:00] VITALS: BP 112/55; PULSE 60; RESP 16
[2017-04-16] MEDS: LEVOTHYROXINE 100 MCG TAB PO SCH (05:37)
[2017-04-16] MEDS: GABAPENTIN 300 MG CAP PO SCH ×2 (05:37→19:27)
[2017-04-16 07:00] VITALS: BP 124/60; RESP 18
[2017-04-16] MEDS: BETAMETHASONE TOP SCH ×2 (08:28→20:29)
[2017-04-16] MEDS: BISOPROLOL 5 MG TAB PO SCH (08:29)
[2017-04-16] MEDS: DOCUSATE SODIUM 100 MG CAP PO SCH ×3 (08:29→20:13)
[2017-04-16] MEDS: RANITIDINE 150 MG TAB PO SCH ×2 (08:29→20:28)
[2017-04-16] MEDS: LORATADINE 10 MG TAB PO SCH (08:29)
--- NOTE | 2017-04-16 10:31 | CONS ---
Date/Time of Note Date/Time of Note DATE: 04/16/17 TIME: 10:30 Assessment/Plan Assessment/Plan Chief Complaint/Hosp Course 1. Status post Near syncope likely secondary to vasovagal/dehydration.Stable. -Continue to monitor. 2. Paroxysmal atrial tachycardia and frequent PVC. -Status post cardiology evaluation. -Continue Zebeta, Monitor lites closely. 3. Segmental sigmoid and descending colitis with ulceration with ischemic colitis. no further diarrhea. -Status post treatment with Cipro plus Flagyl. Of note, patient was unable to tolerate mesalamine. 4. Essential hypertension. stable. - Continue antihypertensives 5. Hypothyroidism. -Continue Synthroid 6. Cardiomyopathy with EF of 45%. -Continue medical optimization. 7. Prediabetes. A1c 6.1. -Monitor. Lifestyle modification advised. 8. Chronic dermatitis. -Recommend outpatient dermatology consultation. Plan: Urine culture showed less than 10,000 Acinetobacter. This is more likely contamination. Therefore, we will repeat a clean-catch urine culture. At this time patient is asymptomatic and did not require any treatment. Prophylaxis: Ambulation/SCD/H2 blockers Patient was seen in collaboration with . Problems: Consultation Date/Type/Reason Admit Date/Time Apr 13, 2017 at 21:09 Type of Consultation: Internal medicine 24 HR Interval Summary Free Text/Dictation No acute overnight episodes. Patient has been participating in physical therapy. Exam/Review of Systems Vital Signs Vitals Vital Signs Date Time Temp Pulse Resp B/P Pulse Ox O2 Delivery O2 Flow Rate FiO2 04/16/17 07:00 98.5 68 18 124/60 92 04/16/17 02:00 Room Air Intake and Output 04/15/17 04/15/17 04/16/17 15:00 23:00 07:00 Intake Total 780 ml 400 ml Output Total 650 ml Balance 130 ml 400 ml Exam General: Elderly female, not in any acute distress . HEENT: Normocephalic, Atraumatic, No laceration or hematoma; Eyes: PEERL, Conjunctiva clear, Anicteric sclera Neck: Supple without any lymphadenopathy, nontender, no JVD, no carotid bruits, trachea midline, no thyromegaly Cardiac: S1, S2 auscultated, regular rhythm and rate, no mumurs or gallop Pulmonary: Normal respiratory effort. Chest clear to auscultation bilaterally, no adventitious breath sounds GI: Abdomen normal to inspection. Soft, non tender, non- distended, no masses, no rebound tenderness or guarding. Bowel sounds active on all four quadrants Genitourinary: Deferred Extremities: No cyanosis, clubbing, or edema. Pulses [2+] bilaterally. Full ROM on all four extremities. No focal weakness appreciated. Neurologic: Alert to person, place, time, and situation. Affect appropriate, intact sensation. Skin: With chronic skin rashes on bilateral lower extremities. Clean,dry, and intact. No ecchymosis, no rashes, or lesions Results Result Diagram: 04/14/1764604/14/17646 Medications Medications Current Medications Levothyroxine Sodium (Synthroid) 100 mcg DAILY@06 PO Last administered on 04/16 05:37; Admin Dose 100 MCG; Start 04/14/17 at 06:00 Loratadine (Claritin) 10 mg DAILY PO Last administered on 04/16/17 08:29; Admin Dose 10 MG; Start 04/14/17 at 09:00 Ranitidine HCl (Zantac) 150 mg BID PO Last administered on 04/16/17 08:29; Admin Dose 150 MG; Start 04/13/17 at 22:06 Acetaminophen/ Hydrocodone Bitart ([place] (5/325)) 1 tab Q6H PRN PO PAIN; Start 04/13/17 at 22:00 Bisoprolol Fumarate (Zebeta) 2.5 mg DAILY PO Last administered on 04/16/17 08 :29; Admin Dose 2.5 MG; Start 04/14/17 at 09:00 Betamethasone Dipropion Augmented (Diprolene Af 0.05% Cr) 1 applic BID TOP Last administered on 04/16/17 08:28; Admin Dose 1 APPLIC; Start 04/14/17 at 09:00 Docusate Sodium (Colace) 100 mg BID PO Last administered on 04/14/17 20:09; Admin Dose 100 MG; Start 04/14/17 at 09:00 Senna (Senokot) 1 tab HS PO Last administered on 04/14/17 20:09; Admin Dose 1 TAB; Start 04/14/17 at 21:00 Acetaminophen (Tylenol Tab) 650 mg Q4H PRN PO PAIN; Start 04/14/17 at 01:30 Bisacodyl (Dulcolax Supp) 10 mg DAILY PRN [place] CONSTIPATION; Start 04/14/17 at 01:30 Magnesium Hydroxide (Milk Of Mag) 30 ml BID PRN PO CONSTIPATION; Start at 01:30 Lactulose (Enulose) 20 gm DAILY PRN PO CONSTIPATION; Start 04/14/17 at 01:30 Gabapentin (Neurontin) 300 mg BID@06,20 PO Last administered on 04/16/17t 05: 37; Admin Dose 300 MG; Start 04/15/17 at 06:00 NICOLÁS ROWLEY NP Apr 16, 2017 10:31
[2017-04-16 19:50] VITALS: BP 153/60; RESP 18
[2017-04-16] MEDS: SENNA TAB PO SCH (20:14)
[2017-04-17 02:00] VITALS: BP 127/60; RESP 18
[2017-04-17] MEDS: GABAPENTIN 300 MG CAP PO SCH ×2 (05:41→20:12)
[2017-04-17] MEDS: LEVOTHYROXINE 100 MCG TAB PO SCH (05:41)
[2017-04-17] MEDS: RANITIDINE 150 MG TAB PO SCH ×2 (08:18→20:13)
[2017-04-17] MEDS: LORATADINE 10 MG TAB PO SCH (08:18)
[2017-04-17] MEDS: HYDROCODONE/APAP (5/325) TAB PO PRN ×2 (08:18→18:41)
[2017-04-17 08:24] VITALS: BP 107/52; PULSE 58; RESP 18
[2017-04-17] MEDS: BISOPROLOL 5 MG TAB PO SCH (09:00)
[2017-04-17] MEDS: DOCUSATE SODIUM 100 MG CAP PO SCH ×2 (09:00→21:00)
[2017-04-17] MEDS: BETAMETHASONE TOP SCH ×2 (09:57→20:14)
--- NOTE | 2017-04-17 11:03 | CONS ---
Date/Time of Note Date/Time of Note DATE: 04/17/17 TIME: 10:59 Assessment/Plan Assessment/Plan Chief Complaint/Hosp Course 1. Status post Near syncope likely secondary to vasovagal/dehydration.Stable. -Continue to monitor. 2. Paroxysmal atrial tachycardia and frequent PVC. -Status post cardiology evaluation. -Continue Zebeta, Monitor lites closely. 3. Segmental sigmoid and descending colitis with ulceration with ischemic colitis. no further diarrhea. -Status post treatment with Cipro plus Flagyl. Of note, patient was unable to tolerate mesalamine. 4. Essential hypertension. stable. - Continue antihypertensives 5. Hypothyroidism. -Continue Synthroid 6. Cardiomyopathy with EF of 45%. -Continue medical optimization. 7. Prediabetes. A1c 6.1. -Monitor. Lifestyle modification advised. 8. Chronic dermatitis. -Recommend outpatient dermatology consultation. 9. Left wrist for furuncle/boil possibly secondary to previous IV site. -Bacitracin local care with warm compress 3 times daily. Plan: Repeat urine culture negative. Continue current management. Prophylaxis: Ambulation/SCD/H2 blockers Patient was seen in collaboration with . Problems: Consultation Date/Type/Reason Admit Date/Time Apr 13, 2017 at 21:09 Type of Consultation: Internal medicine 24 HR Interval Summary Free Text/Dictation Patient sitting up in chair. She is complaining of left wrist bruising and a mild boil which now hurts. She is afebrile. Exam/Review of Systems Vital Signs Vitals Vital Signs Date Time Temp Pulse Resp B/P Pulse Ox O2 Delivery O2 Flow Rate FiO2 04/17/17 08:24 97.8 58 18 107/52 93 Room Air Intake and Output 04/16/17 04/16/17 04/17/17 15:00 23:00 07:00 Intake Total 1200 ml 1100 ml Output Total 600 ml 600 ml Balance 600 ml 500 ml Exam General: Elderly female, not in any acute distress . HEENT: Normocephalic, Atraumatic, No laceration or hematoma; Eyes: PEERL, Conjunctiva clear, Anicteric sclera Neck: Supple without any lymphadenopathy, nontender, no JVD, no carotid bruits, trachea midline, no thyromegaly Cardiac: S1, S2 auscultated, regular rhythm and rate, no mumurs or gallop Pulmonary: Normal respiratory effort. Chest clear to auscultation bilaterally, no adventitious breath sounds GI: Abdomen normal to inspection. Soft, non tender, non- distended, no masses, no rebound tenderness or guarding. Bowel sounds active on all four quadrants Genitourinary: Deferred Extremities: Left wrist with a small furuncle/boil. There is mild erythema around it. No cyanosis, clubbing, or edema. Pulses [2+] bilaterally. Full ROM on all four extremities. No focal weakness appreciated. Neurologic: Alert to person, place, time, and situation. Affect appropriate, intact sensation. Skin: With chronic skin rashes on bilateral lower extremities. Clean,dry, and intact. No ecchymosis, no rashes, or lesions Results Result Diagram: 04/14/1747 04/14/1747 Medications Medications Current Medications Levothyroxine Sodium (Synthroid) 100 mcg DAILY@06 PO Last administered on 04/17 05:41; Admin Dose 100 MCG; Start 04/14/17 at 06:00 Loratadine (Claritin) 10 mg DAILY PO Last administered on 04/17/17 08:18; Admin Dose 10 MG; Start 04/14/17 at 09:00 Ranitidine HCl (Zantac) 150 mg BID PO Last administered on 04/17/17 08:18; Admin Dose 150 MG; Start 04/13/17 at 22:06 Acetaminophen/ Hydrocodone Bitart ([place] (5/325)) 1 tab Q6H PRN PO PAIN Last administered on 04/17/17 08:18; Admin Dose 1 TAB; Start 04/13/17 at 22:00 Bisoprolol Fumarate (Zebeta) 2.5 mg DAILY PO Last administered on 04/16/17 08 :29; Admin Dose 2.5 MG; Start 04/14/17 at 09:00 Betamethasone Dipropion Augmented (Diprolene Af 0.05% Cr) 1 applic BID TOP Last administered on 04/17/17 09:57; Admin Dose 1 APPLIC; Start 04/14/17 at 09:00 Docusate Sodium (Colace) 100 mg BID PO Last administered on 04/14/17 20:09; Admin Dose 100 MG; Start 04/14/17 at 09:00 Senna (Senokot) 1 tab HS PO Last administered on 04/14/17 20:09; Admin Dose 1 TAB; Start 04/14/17 at 21:00 Acetaminophen (Tylenol Tab) 650 mg Q4H PRN PO PAIN; Start 04/14/17 at 01:30 Bisacodyl (Dulcolax Supp) 10 mg DAILY PRN [place] CONSTIPATION; Start 04/14/17 at 01:30 Magnesium Hydroxide (Milk Of Mag) 30 ml BID PRN PO CONSTIPATION; Start at 01:30 Lactulose (Enulose) 20 gm DAILY PRN PO CONSTIPATION; Start 04/14/17 at 01:30 Gabapentin (Neurontin) 300 mg BID@06,20 PO Last administered on 04/17/17 05: 41; Admin Dose 300 MG; Start 04/15/17 at 06:00 NICOLÁS ROWLEY NP Apr 17, 2017 11:03
--- NOTE | 2017-04-17 12:31 | CONS ---
Date/Time of Note Date/Time of Note DATE: 04/17/17 TIME: 12:31 Consult Date/Type/Reason Admit Date/Time Apr 13, 2017 at 21:09 Initial Consult Date Type of Consultation: Internal medicine Objective Vital Signs Date Time Temp Pulse Resp B/P Pulse Ox O2 Delivery O2 Flow Rate FiO2 04/17/17 08:24 97.8 58 18 107/52 93 Room Air Intake and Output 04/16/17 04/16/17 04/17/17 15:00 23:00 07:00 Intake Total 1200 ml 1100 ml Output Total 600 ml 600 ml Balance 600 ml 500 ml INTERDISCIPLINARY TEAM CONFERENCE BOWEL- Cont BLADDER-Cont SKIN- diffuse rash OT- DRESSING-sba BATHING-sba TOILETING-sba PT- BED MOBILITY-sba TRANSFERS-sba AMBULATION-sba 150 A/P- Interdisciplinary team conference held today. Please see interdisciplinary sheet. Working toward d.c. on 04/18 with post discharge follow up of physical therapy, occupational therapy. Results/Medications Result Diagram: 04/14/17 0647 04/14/17 0647 Medications Current Medications Levothyroxine Sodium (Synthroid) 100 mcg DAILY@06 PO Last administered on 04/17 05:41; Admin Dose 100 MCG; Start 04/14/17 at 06:00 Loratadine (Claritin) 10 mg DAILY PO Last administered on 04/17/17 08:18; Admin Dose 10 MG; Start 04/14/17 at 09:00 Ranitidine HCl (Zantac) 150 mg BID PO Last administered on 04/17/17 08:18; Admin Dose 150 MG; Start 04/13/17 at 22:06 Acetaminophen/ Hydrocodone Bitart ([place] (5/325)) 1 tab Q6H PRN PO PAIN Last administered on 04/17/17 08:18; Admin Dose 1 TAB; Start 04/13/17 at 22:00 Bisoprolol Fumarate (Zebeta) 2.5 mg DAILY PO Last administered on 04/16/17 08 :29; Admin Dose 2.5 MG; Start 04/14/17 at 09:00 Betamethasone Dipropion Augmented (Diprolene Af 0.05% Cr) 1 applic BID TOP Last administered on 04/17/17 09:57; Admin Dose 1 APPLIC; Start 04/14/17 at 09:00 Docusate Sodium (Colace) 100 mg BID PO Last administered on 04/14/17 20:09; Admin Dose 100 MG; Start 04/14/17 at 09:00 Senna (Senokot) 1 tab HS PO Last administered on 04/14/17 20:09; Admin Dose 1 TAB; Start 04/14/17 at 21:00 Acetaminophen (Tylenol Tab) 650 mg Q4H PRN PO PAIN; Start 04/14/17 at 01:30 Bisacodyl (Dulcolax Supp) 10 mg DAILY PRN [place] CONSTIPATION; Start 04/14/17 at 01:30 Magnesium Hydroxide (Milk Of Mag) 30 ml BID PRN PO CONSTIPATION; Start at 01:30 Lactulose (Enulose) 20 gm DAILY PRN PO CONSTIPATION; Start 04/14/17 at 01:30 Gabapentin (Neurontin) 300 mg BID@06,20 PO Last administered on 04/17/17 05: 41; Admin Dose 300 MG; Start 04/15/17 at 06:00 Bacitracin/ Polymyxin B Sulfate (Polysporin Oint) 1 applic BID TOP ; Start at 12:30 FELICIA HERNANDEZ MD Apr 17, 2017 12:31 FELICIA HERNANDEZ MD Apr 17, 2017 12:31
[2017-04-17 14:55] LABS: BASOPHIL # 0.1 10^3/ul (0.0-0.1); BASOPHILS % 0.8 % (0.0-2.0); EOSINOPHILS # 0.2 10^3/ul (0.0-0.5); EOSINOPHILS % 3.2 % (0.0-7.0); HEMATOCRIT 32.2 % (37.0-47.0); HEMOGLOBIN 10.3 g/dl (12.0-16.0); LYMPHOCYTES # 1.3 10^3/ul (0.8-2.9); LYMPHOCYTES % 17.8 % (15.0-51.0); MEAN CORPUSCULAR HEMOGLOBIN 31.1 pg (29.0-33.0); MEAN CORPUSCULAR VOLUME 97.3 fl (82.0-101.0); MEAN PLATELET VOLUME 9.6 fl (7.4-10.4); MONOCYTE # 0.6 10^3/ul (0.3-0.9); MONOCYTES % 8.3 % (0.0-11.0); NEUTROPHIL # 5.2 10^3/ul (1.6-7.5); NEUTROPHILS % 69.4 % (39.0-77.0); PLATELET COUNT 310 10^3/UL (140-415); RED BLOOD COUNT 3.31 10^6/ul (4.20-5.40); RED CELL DISTRIBUTION WIDTH 14.9 % (11.5-14.5); WHITE BLOOD COUNT 7.5 10^3/ul (4.8-10.8)
[2017-04-17] MEDS: CEPHALEXIN 250 MG CAP PO SCH (18:41)
[2017-04-17] MEDS: BACITRACIN/POLYMYXIN 28.35 GM OINT TOP SCH ×2 (18:41→20:14)
[2017-04-17 20:00] VITALS: BP 137/71; RESP 20
[2017-04-17] MEDS: SENNA TAB PO SCH (20:15)
[2017-04-18] MEDS: CEPHALEXIN 250 MG CAP PO SCH ×2 (00:09→08:18)
[2017-04-18 02:00] VITALS: BP 96/50; RESP 18
[2017-04-18] MEDS: GABAPENTIN 300 MG CAP PO SCH (06:05)
[2017-04-18] MEDS: LEVOTHYROXINE 100 MCG TAB PO SCH (06:05)
[2017-04-18 07:00] VITALS: BP 133/62; RESP 18
[2017-04-18] MEDS: DOCUSATE SODIUM 100 MG CAP PO SCH (08:16)
[2017-04-18] MEDS: RANITIDINE 150 MG TAB PO SCH (08:16)
[2017-04-18] MEDS: LORATADINE 10 MG TAB PO SCH (08:16)
[2017-04-18] MEDS: BISOPROLOL 5 MG TAB PO SCH (08:18)
[2017-04-18] MEDS: BACITRACIN/POLYMYXIN 28.35 GM OINT TOP SCH (09:00)
[2017-04-18] MEDS: BETAMETHASONE TOP SCH (09:00)
== END 2017-04-18 11:19 | disposition home health service (06) | DRG 945 ==
LOC: VRC 21:09
PROVIDERS: ADMIT Physical Medicine & Rehabilitation; ATTEND Internal Medicine Pulmonary Disease
PROC: F07Z9FZ Gait Training/Functional Ambulation Treatment using Assistive, Adaptive, Supportive or Protective Equipment (ICD-10-PCS; principal; 2017-04-13)
PROC: F07Z8FZ Transfer Training Treatment using Assistive, Adaptive, Supportive or Protective Equipment (ICD-10-PCS; 2017-04-13)
PROC: F07Z5FZ Bed Mobility Treatment using Assistive, Adaptive, Supportive or Protective Equipment (ICD-10-PCS; 2017-04-13)
PROC: F08Z2FZ Grooming/Personal Hygiene Treatment using Assistive, Adaptive, Supportive or Protective Equipment (ICD-10-PCS; 2017-04-13)
PROC: F08Z0FZ Bathing/Showering Techniques Treatment using Assistive, Adaptive, Supportive or Protective Equipment (ICD-10-PCS; 2017-04-13)
PROC: F08Z1FZ Dressing Techniques Treatment using Assistive, Adaptive, Supportive or Protective Equipment (ICD-10-PCS; 2017-04-13)
DX: R53.81 Other malaise (principal); I42.9 Cardiomyopathy, unspecified; K55.9 Vascular disorder of intestine, unspecified; I47.1 Supraventricular tachycardia; K51.80 Other ulcerative colitis without complications; E86.0 Dehydration; I10 Essential (primary) hypertension; E03.9 Hypothyroidism, unspecified; G25.2 Other specified forms of tremor; L30.9 Dermatitis, unspecified; I49.3 Ventricular premature depolarization; I95.1 Orthostatic hypotension; R73.03 Prediabetes; L02.424 Furuncle of left upper limb
CPT/HCPCS: 80053; 81001; 85025; 87081; 87086; 97110; 97112; 97116; 97150; 97161; 97167; 97530; 97535